=== PATIENT | male | born 1950 | race Caucasian/White ===

== ENCOUNTER 2016-10-28 00:05 | Emergency (ER) | payer MEDICARE ==
[2016-10-28] MEDS ORDERED: ALBUTEROL SULFATE 0.083% NEB 2.5 MG/3 ML AMPUL NEB ONE ×6 (00:09→10:30)
[2016-10-28] MEDS ORDERED: IPRATROPIUM/ALBUTEROL 0.5-2.5 MG/3 ML AMPUL NEB ONE ×3 (00:09→10:30)
[2016-10-28] MEDS ORDERED: MAGNESIUM SULFATE/D5W 1 GM/100 ML RTUPB IV ONE ×2 (00:10)
[2016-10-28] MEDS ORDERED: MAGNESIUM SULFATE/D5W 2 GM/200 ML RTUPB IV ONE (00:10)
--- NOTE | 2016-10-28 00:13 | ER Document Report ---
ED Respiratory Problem - General Stated Complaint: RESPIRATORY DISTRESS Time seen by provider: 00:11 Mode of Arrival: Medic Information source: Patient, Emergency Med Personnel TRAVEL OUTSIDE OF THE [place] IN LAST 30 DAYS: No - HPI Patient complains to provider of: COPD, Cough, Short of breath Onset: This morning Duration: Worse/persistent Quality of pain: No pain Context: Hx COPD, Smoker Short of Breath: Severe Chest pain/discomfort: Tightness Cough: Nonproductive Associated symptoms: Cough, Difficulty breathing, Short of breath Similar symptoms previously: Yes Recently seen / treated by doctor: Yes Notes: Patient is a 66-year-old male with a history of COPD who presents to the emergency room via EMS and severe respiratory distress, on C Pap on arrival, patient recently quit smoking approximately one week ago, was recently treated for upper respiratory infection by his primary care provider with antibiotics, has several previous hospitalizations for COPD and difficulty breathing patient denies any chest pain, no fever - Related Data Allergies/Adverse Reactions: No Known Allergies Allergy (Verified 07/28/15 18:34) Past Medical History - General Information source: Patient - Social History Smoking Status: Former Smoker Family History: Reviewed & Not Pertinent, DM - Past Medical History Cardiac Medical History: Reports: Hx Hypertension Denies: Hx Coronary Artery Disease, Hx Heart Attack Pulmonary Medical History: Reports: Hx COPD Denies: Hx Asthma, Hx Bronchitis, Hx Pneumonia, Hx Tuberculosis Neurological Medical History: Denies: Hx Cerebrovascular Accident - hx 6 months ago left side weakness lasted about 10 min, Hx Seizures Musculoskeltal Medical History: Reports Hx Arthritis Psychiatric Medical History: Denies: Hx Depression - Immunizations Immunizations up to date: Yes Hx Diphtheria, Pertussis, Tetanus Vaccination: Yes Review of Systems - Review of Systems Constitutional: No symptoms reported EENT: No symptoms reported Cardiovascular: No symptoms reported Respiratory: See HPI Gastrointestinal: No symptoms reported Genitourinary: No symptoms reported Male Genitourinary: No symptoms reported Musculoskeletal: No symptoms reported Skin: No symptoms reported Hematologic/Lymphatic: No symptoms reported Neurological/Psychological: No symptoms reported -: Yes All other systems reviewed and negative Physical Exam - Vital signs Vitals: Pulse Ox 99 10/28/16 00:08 Interpretation: Tachypneic - General General appearance: Alert In distress: Severe - HEENT Head: Normocephalic, Atraumatic Eyes: Normal Pupils: PERRL - Respiratory Respiratory status: Respiratory distress, Labored, Tachypnea Chest status: Nontender Breath sounds: Decreased air movement, Nonproductive cough, Wheezing Chest palpation: Normal - Cardiovascular Rhythm: Regular, Tachycardia Heart sounds: Normal auscultation Murmur: No - Abdominal Inspection: Normal Distension: No distension Bowel sounds: Normal Tenderness: Nontender Organomegaly: No organomegaly - Back Back: Normal, Nontender - Extremities General upper extremity: Normal inspection, Nontender, Normal color, Normal ROM , Normal temperature General lower extremity: Normal inspection, Nontender, Normal color, Normal ROM , Normal temperature, Normal weight bearing. No: Robert's sign - Neurological Neuro grossly intact: Yes Cognition: Normal Orientation: AAOx4 Pat Coma Scale Eye Opening: Spontaneous Pat Coma Scale Verbal: Oriented [place] Coma Scale Motor: Obeys Commands Pat Coma Scale Total: 15 Speech: Normal Motor strength normal: LUE, RUE, LLE, RLE Sensory: Normal - Psychological Associated symptoms: Normal affect, Normal mood - Skin Skin Temperature: Warm Skin Moisture: Dry Skin Color: Normal Course - Re-evaluation Re-evalutation: 10/28/16 01:32 Patient was discussed with [facility] cardiac connections of [facility], and accepted to cardiac service of Dr. Massimo Ware, patient is currently first on the waiting list for a bed 10/28/16 02:20 Patient discussed with [facility] transfer Center, will call back with hospitalist on line 10/28/16 02:42 Patient was discussed with hospitalist at [facility], Dr. Wills who graciously accepts patient for transfer, requested callback if patient becomes unstable, develops worsening chest pain or has a repeat troponin that trends up 10/28/16 04:36 Patient's repeat troponin 1.37, he is resting comfortably, has no complaints at the present time, denies having any chest pain, patient is awaiting transfer to either [facility] or [facility] once a bed becomes available, he is otherwise stable for transport patient has been discussed with Dr Ybarra, ER physician, who will continue to monitor patient until transportation arrangements are made - Vital Signs Vital signs: Temp Pulse Resp BP Pulse Ox 98.7 F 16 125/89 H 99 10/28/16 00:14 10/28/16 04:01 10/28/16 04:01 10/28/16 04:01 - Laboratory Result Diagrams: 10/28/16 00:20 10/28/16 00:20 Laboratory results interpreted by me: 10/28/16 10/28/16 00:20 00:20 WBC 11.0 H RDW 14.4 H Eosinophils % 7.1 H Absolute Eosinophils 0.8 H Creatinine 1.31 H Est GFR (Non-Af Amer) 55 L Creatine Kinase 226 H - Diagnostic Test Radiology reviewed: Image reviewed, Reports reviewed - EKG Interpretation by Me EKG shows normal: Sinus rhythm Rate: Normal [place]/QRS: LAHB/LAFB Critical Care Note - Critical Care Note Total time excluding time spent on procedures (mins): 60 Comments: Patient arrived in severe respiratory distress requiring immediate BiPAP placement, laboratory findings are consistent with NSTEMI, requiring transfer to tertiary care center, multiple re-evaluations, consultation with tertiary care center, as well as discussions with patient and family Discharge - Discharge Clinical Impression: Elevated troponin, NSTEMI (non-ST elevated myocardial infarction) Condition: Fair Referrals: LARY LOOMIS MD [Primary Care Provider] - Follow up as needed
[2016-10-28 00:32] LABS: VENOUS BLOOD HCO3 25.5 mmol/L (20-32); VENOUS BLOOD PH 7.33 (7.30-7.42)
[2016-10-28 00:34] LABS: ABSOLUTE EOSINOPHILS # (AUTO) 0.8 10^3/uL (0.0-0.6); ABSOLUTE LYMPHOCYTES (AUTO) 3.2 10^3/uL (0.5-4.7); ABSOLUTE MONOCYTES (AUTO) 0.7 10^3/uL (0.1-1.4); ABSOLUTE NEUT (AUTO) 6.3 10^3/uL (1.7-8.2); BASOPHILS % (AUTO) 0.4 % (0-2); EOSINOPHILS % (AUTO) 7.1 % (0-6); HEMATOCRIT 40.7 % (37.9-51.0); HEMOGLOBIN 13.9 g/dL (13.5-17.0); LYMPHOCYTES % (AUTO) 28.7 % (13-45); MEAN CORPUSCULAR HEMOGLOBIN 29.8 pg (27.0-33.4); MEAN CORPUSCULAR HGB CONC 34.1 g/dL (32.0-36.0); MEAN CORPUSCULAR VOLUME 87 fl (80-97); MONOCYTES % (AUTO) 6.5 % (3-13); RED BLOOD COUNT 4.67 10^6/uL (4.35-5.55); RED CELL DISTRIBUTION WIDTH 14.4 % (11.5-14.0); SEGMENTED NEUTROPHILS % (AUTO) 57.3 % (42-78)
[2016-10-28 00:49] LABS: ALANINE AMINOTRANSFERASE 34 U/L (21-72); ALBUMIN 4.2 g/dL (3.5-5.0); ALKALINE PHOSPHATASE 94 U/L (38-126); ANION GAP 15 (5-19); ASPARTATE AMINO TRANSFERASE 51 U/L (17-59); BILIRUBIN,DIRECT 0.2 mg/dL (0.0-0.4); BILIRUBIN,TOTAL 0.5 mg/dL (0.2-1.3); BLOOD UREA NITROGEN 20 mg/dL (7-20); CALCIUM 9.2 mg/dL (8.4-10.2); CARBON DIOXIDE 26 mmol/L (22-30); CHLORIDE 104 mmol/L (98-107); CREATINE KINASE 226 U/L (55-170); CREATININE RESULT 1.31 mg/dL (0.52-1.25); GLUCOSE 105 mg/dL (75-110); POTASSIUM 4.3 mmol/L (3.6-5.0); SODIUM 144.9 mmol/L (137-145); TOTAL PROTEIN 7.1 g/dL (6.3-8.2)
[2016-10-28 01:00] LABS: CREATINE KINASE MB 3.84 ng/mL (<4.55)
[2016-10-28 01:03] LABS: TROPONIN I 0.288 ng/mL
[2016-10-28] MEDS ORDERED: ASPIRIN 81 MG TABLET, CHEWABLE PO ONE (01:30)
[2016-10-28] MEDS ORDERED: MORPHINE SULFATE 10 MG/ML INJ IV ONE (02:14)
[2016-10-28] MEDS ORDERED: ENOXAPARIN SODIUM INJ 60 MG/0.6 ML DISP.SYRIN SUBCUT ONE (04:41)
--- NOTE | 2016-10-28 07:24 | EKG REPORT ---
SEVERITY:- ABNORMAL ECG - SINUS RHYTHM CONSIDER ANTEROSEPTAL INFARCT : Confirmed by: Kevin Sams MD 28-Oct-2016 07:23:47
--- NOTE | 2016-10-28 07:25 | EKG REPORT ---
SEVERITY:- ABNORMAL ECG - SINUS TACHYCARDIA RIGHT ATRIAL ABNORMALITY LEFT ANTERIOR FASCICULAR BLOCK : Confirmed by: Kevin Sams MD 28-Oct-2016 07:24:46
--- NOTE | 2016-10-28 07:25 | EKG REPORT ---
SEVERITY:- ABNORMAL ECG - SINUS RHYTHM LEFT ANTERIOR FASCICULAR BLOCK CONSIDER ANTEROSEPTAL INFARCT NONSPECIFIC T ABNORMALITIES, LATERAL LEADS BORDERLINE PROLONGED QT INTERVAL : Confirmed by: Kevin Sams MD 28-Oct-2016 07:24:11
[2016-10-28 09:47] LABS: APPEARANCE,URINE CLEAR; BILIRUBIN,URINE NEGATIVE (NEGATIVE); GLUCOSE, URINE NEGATIVE (NEGATIVE); KETONES,URINE TRACE mg/dL (NEGATIVE); LEUKOCYTE ESTERASE,URINE NEGATIVE (NEGATIVE); NITRITE,URINE NEGATIVE (NEGATIVE); PROTEIN,URINE NEGATIVE (NEGATIVE); URINE SPECIFIC GRAVITY 1.013; UROBILINOGEN,URINE NEGATIVE mg/dL (<2.0)
[2016-10-28] MEDS ORDERED: ALBUTEROL SULFATE 0.083% NEB 2.5 MG/3 ML AMPUL NEB SCH ×2 (10:00→16:00)
[2016-10-28] MEDS ORDERED: IPRATROPIUM/ALBUTEROL 0.5-2.5 MG/3 ML AMPUL NEB SCH ×2 (10:00→20:00)
[2016-10-28 13:47] VITALS: BP 138/77
--- NOTE | 2016-10-28 13:57 | ER Document Report ---
Doctor's Note Notes: 10/28/16 13:56 Patient is time to be stable for transport. Last troponin has trended downward. Patient has continued to be on BiPAP.
== END 2016-10-28 14:02 | disposition short-term general hospital (02) ==
LOC: ER 00:05
DX: I21.4 Non-ST elevation (NSTEMI) myocardial infarction (principal); R74.8 Abnormal levels of other serum enzymes; I10 Essential (primary) hypertension; J44.9 Chronic obstructive pulmonary disease, unspecified; I69.954 Hemiplegia and hemiparesis following unspecified cerebrovascular disease affecting left non-dominant side; Z87.891 Personal history of nicotine dependence
CPT/HCPCS: 93005; 94640 ×2; 99291; 96372; 96375; 96365; 36415; 87040; 82553; 82550; 85025; 80053; 81001; 84484; 82803; 83880; 71010; 93010; 94660; A9270 ×3; J2270; J3475; J1650; J7620

== ENCOUNTER → 2017-08-26 | Outpatient (CLI) | payer MEDICARE, MEDICAID ==
--- NOTE | 2017-08-26 15:14 | RADIOLOGY REPORT (SQ) ---
EXAM DESCRIPTION: CHEST PA/LATERAL COMPLETED DATE/TIME: 08/26/2017 2:47 pm REASON FOR STUDY: COUGH R05 COUGH COMPARISON: 10/28/2016 NUMBER OF VIEWS: Two view. TECHNIQUE: Frontal and lateral radiographic views of the chest acquired. LIMITATIONS: None. FINDINGS: LUNGS AND PLEURA: No opacities, masses or pneumothorax. No pleural effusion. Attenuated bl ood vessels and flattened anton-diaphragms. MEDIASTINUM AND HILAR STRUCTURES: No masses. No contour abnormalities. HEART AND VASCULAR STRUCTURES: Heart normal in size and contour. No evidence for failure. BONES: No acute findings. HARDWARE: None in the chest. OTHER: No other significant finding. IMPRESSION: COPD. NO ACUTE RADIOGRAPHIC FINDING IN THE CHEST. TECHNICAL DOCUMENTATION: JOB ID: [id number] [employer]- All Rights Reserved
[2017-08-26 15:32] LABS: ABSOLUTE LYMPHOCYTES (AUTO) 1.9 10^3/uL (0.5-4.7); ABSOLUTE MONOCYTES (AUTO) 0.6 10^3/uL (0.1-1.4); ABSOLUTE NEUT (AUTO) 4.1 10^3/uL (1.7-8.2); BASOPHILS % (AUTO) 0.3 % (0-2); EOSINOPHILS % (AUTO) 0.2 % (0-6); HEMATOCRIT 43.4 % (37.9-51.0); LYMPHOCYTES % (AUTO) 28.9 % (13-45); MEAN CORPUSCULAR HEMOGLOBIN 29.7 pg (27.0-33.4); MEAN CORPUSCULAR HGB CONC 34.7 g/dL (32.0-36.0); MEAN CORPUSCULAR VOLUME 86 fl (80-97); MONOCYTES % (AUTO) 8.8 % (3-13); PLATELET COUNT 139 10^3/uL (150-450); RED BLOOD COUNT 5.07 10^6/uL (4.35-5.55); RED CELL DISTRIBUTION WIDTH 14.3 % (11.5-14.0); SEGMENTED NEUTROPHILS % (AUTO) 61.8 % (42-78); TOTAL CELLS COUNTED % (AUTO) 100 %; WHITE BLOOD COUNT 6.7 10^3/uL (4.0-10.5)
[2017-08-26 15:46] LABS: A TYPE INFLUENZA AG NEGATIVE (NEGATIVE); B INFLUENZA AG NEGATIVE (NEGATIVE)
== END ==
LOC: OD 14:26
PROVIDERS: ATTEND Internal Medicine Pulmonary Disease
DX: J44.9 Chronic obstructive pulmonary disease, unspecified (principal); R05 Cough
CPT/HCPCS: 36415; 71046; 85025; 87070; 87077; 87186; 87205; 87804

== ENCOUNTER 2017-08-28 01:36 | Inpatient (IN) | payer MEDICARE, MEDICAID ==
[2017-08-28] MEDS ORDERED: ALBUTEROL SULFATE 0.083% NEB 2.5 MG/3 ML AMPUL NEB ONE ×2 (01:44→02:56)
[2017-08-28] MEDS ORDERED: METHYLPREDNISOLONE INJ 125 MG/2 ML SDV IV ONE (01:44)
[2017-08-28 01:53] LABS: ABSOLUTE MONOCYTES (AUTO) 0.7 10^3/uL (0.1-1.4); ABSOLUTE NEUT (AUTO) 8.1 10^3/uL (1.7-8.2); HEMATOCRIT 42.4 % (37.9-51.0); HEMOGLOBIN 14.8 g/dL (13.5-17.0); LYMPHOCYTES % (AUTO) 18.8 % (13-45); MEAN CORPUSCULAR HEMOGLOBIN 29.7 pg (27.0-33.4); MEAN CORPUSCULAR HGB CONC 34.8 g/dL (32.0-36.0); MEAN CORPUSCULAR VOLUME 85 fl (80-97); MONOCYTES % (AUTO) 6.2 % (3-13); PLATELET COUNT 124 10^3/uL (150-450); RED BLOOD COUNT 4.97 10^6/uL (4.35-5.55); RED CELL DISTRIBUTION WIDTH 14.3 % (11.5-14.0); TOTAL CELLS COUNTED % (AUTO) 100 %; WHITE BLOOD COUNT 10.8 10^3/uL (4.0-10.5)
[2017-08-28] MEDS: MAGNESIUM SULFATE/D5W 1 GM/100 ML RTUPB IV SCH ×2 (01:56→02:23)
--- NOTE | 2017-08-28 02:02 | ER Document Report ---
ED General - General Chief Complaint: Shortness Of Breath Stated Complaint: SHORTNESS OF BREATH,CHEST PAIN Time Seen by Provider: 08/28/17 01:44 Notes: Patient is a 67-year-old male with a history previous smoking. He quit smoking 2 months ago. His psychology fellow is Dr. Cordova. He was seen 2 days ago. He was seen 2 days ago by his psychology fellow. He was prescribed inhalers as well as prednisone. He says he did not inhalers at an did not start the prednisone makes her to take it with food and he has not felt like eating. He has been coughing now for almost a week. That is been having wheezing. Today he started having worsening difficulty breathing and then started to cough up some blood-tinged sputum. No history of cancer. He says that he is felt as if he has had fevers all day every day for the last 5 days but has not checked his temp at home. No other complaints at this time. Patient says only medications he routinely takes are Percocet and Valium. Percocet is for his chronic back pain. Valium is to help him sleep at night. TRAVEL OUTSIDE OF THE [place] IN LAST 30 DAYS: No - Related Data Allergies/Adverse Reactions: No Known Allergies Allergy (Verified 07/28/15 18:34) Past Medical History - Social History Smoking Status: Former Smoker Frequency of alcohol use: None Drug Abuse: None Family History: Reviewed & Not Pertinent, DM - Past Medical History Cardiac Medical History: Reports: Hx Hypertension Denies: Hx Coronary Artery Disease, Hx Heart Attack Pulmonary Medical History: Reports: Hx COPD Denies: Hx Asthma, Hx Bronchitis, Hx Pneumonia, Hx Tuberculosis Neurological Medical History: Denies: Hx Cerebrovascular Accident - hx 6 months ago left side weakness lasted about 10 min, Hx Seizures Musculoskeltal Medical History: Reports Hx Arthritis Psychiatric Medical History: Denies: Hx Depression - Immunizations Immunizations up to date: Yes Hx Diphtheria, Pertussis, Tetanus Vaccination: Yes Review of Systems - Review of Systems Notes: My Normal Review Basic REVIEW OF SYSTEMS: CONSTITUTIONAL : Chills and body aches. EENT: Denies eye, ear, throat, or mouth pain or symptoms. Denies nasal or sinus congestion. CARDIOVASCULAR: Denies chest pain. RESPIRATORY: Coughing and difficulty breathing. GASTROINTESTINAL: Denies abdominal pain. Denies nausea, vomiting, or diarrhea. Denies constipation. Last BM: MUSCULOSKELETAL: Chronic back pain. SKIN: Denies rash or skin lesions. HEMATOLOGIC : Denies easy bruising or bleeding. NEUROLOGICAL: Denies altered mental status or loss of consciousness. Denies headache. Denies weakness or paralysis or loss of use of either side. Denies problems with gait or speech. Denies sensory or motor loss. ALL OTHER SYSTEMS REVIEWED AND NEGATIVE. Physical Exam - Vital signs Vitals: Pulse Ox 77 L 08/28/17 01:39 - Notes Notes: General Appearance: Well nourished, alert, cooperative, moderate acute distress , no obvious discomfort. Patient has tachypnea with accessory muscle use. Vitals: reviewed, See vital signs table. Head: no swelling or tenderness to the head Eyes: PERRL, EOMI, Conjuctiva clear Mouth: No decreasd moisture Throat: No tonsillar inflammation, No airway obstruction, No lymphadenopathy Neck: Supple, no neck tendernes No thyromegaly Lungs: Diffuse wheezing with fair air movement. Heart: Normal rate, Regular rythm, No murmur, no rub Abdomen: Normal BS, soft, No rigidity, No abdominal tenderness, No guarding, no rebound, no abdominal masses, no organomegaly Extremities: strength 5/5 in all extremities, good pulses in all extremities, no swelling or tenderness in the extremities, no edema. Skin: warm, dry, appropriate color, no rash Neuro: speech clear, oriented x 3, normal affect, responds appropriately to questions. Course - Re-evaluation Re-evalutation: 08/28/17 02:55 On repeat examination patient still has tachypnea and accessory muscle use. He still has some tightness throughout lung beatty. His O2 saturations 94% on 2 L. He does use BiPAP in the past and done well with that. I will place BiPAP on him to see if this helps with his work of breathing. 08/28/17 04:44 Since starting the BiPAP patient looks and feels much improved. His increased work of breathing is improved. His tachypnea is improved. He still has some scattered wheezes but he has much better movement than he did earlier. He is no longer coughing up blood-tinged sputum. Chest x-ray does not have any findings that would cause concern for TB on my review the chest x-ray. I do not see evidence of pneumonia but I will still nonetheless place him on Levaquin. I spokespoke with Dr. Wilhelm, patient's primary care physician, who agrees to admit the patient for observation. Dictation of this chart was performed using voice recognition software; therefore, there may be some unintended grammatical errors. - Vital Signs Vital signs: Temp Pulse Resp BP Pulse Ox 99.8 F 27 H 117/72 98 08/28/17 03:23 08/28/17 04:20 08/28/17 04:01 08/28/17 04:20 - Laboratory Result Diagrams: 08/28/17 01:15 08/28/17 01:15 Laboratory results interpreted by me: 08/28/17 08/28/17 08/28/17 01:15 01:15 02:17 WBC 10.8 H RDW 14.3 H Plt Count 124 L VBG pH 7.48 H VBG pCO2 28.3 L Sodium 134.7 L Glucose 118 H Albumin 3.4 L - EKG Interpretation by Me Additional EKG results interpreted by me: 08/28/17 02:01 EKG is reviewed and interpreted by me. EKG shows sinus tachycardia with a rate of [address] segment elevation or depression. No ischemic T-wave inversions. VT interval, QRS duration, QTc intervals are within normal range. Old EKG for comparison is from October 28, 2016. Discharge - Discharge Clinical Impression: Bronchitis, Hemoptysis Condition: Stable Disposition: ADMITTED OBSERVATION Admitting Provider: Melonie Unit Admitted: IMCU Referrals: LOCALMD,NO [Primary Care Provider] - Follow up as needed
[2017-08-28 02:05] LABS: ALANINE AMINOTRANSFERASE 24 U/L (21-72); ALBUMIN 3.4 g/dL (3.5-5.0); ALKALINE PHOSPHATASE 70 U/L (38-126); ANION GAP 10 (5-19); ASPARTATE AMINO TRANSFERASE 31 U/L (17-59); BILIRUBIN,DIRECT 0.4 mg/dL (0.0-0.4); BILIRUBIN,TOTAL 0.4 mg/dL (0.2-1.3); BLOOD UREA NITROGEN 16 mg/dL (7-20); CALCIUM 8.4 mg/dL (8.4-10.2); CARBON DIOXIDE 22 mmol/L (22-30); CHLORIDE 103 mmol/L (98-107); GLUCOSE 118 mg/dL (75-110); SODIUM 134.7 mmol/L (137-145); TOTAL PROTEIN 6.3 g/dL (6.3-8.2)
[2017-08-28 02:31] LABS: VENOUS BLOOD BASE EXCESS -1.5 mmol/L; VENOUS BLOOD HCO3 20.5 mmol/L (20-32); VENOUS BLOOD PCO2 28.3 mmHg (35-63); VENOUS BLOOD PH 7.48 (7.30-7.42)
[2017-08-28] MEDS ORDERED: LEVOFLOXACIN 750 MG/D5W RTU 750 MG/150 ML RTUPB IV ONE ×2 (04:25→07:00)
--- NOTE | 2017-08-28 04:35 | RADIOLOGY REPORT (SQ) ---
EXAM DESCRIPTION: CHEST SINGLE VIEW CLINICAL HISTORY: cough COMPARISON: 08/26/2017 FINDINGS: Single frontal view of the chest. Atherosclerotic calcification of the thoracic aorta. Heart is not enlarged. No consolidation, pneumothorax, or pleural effusion. No displaced rib fractures identified. Upper abdominal soft tissues are unremarkable. IMPRESSION: 1. No acute pulmonary process identified.
[2017-08-28] MEDS ORDERED: IPRATROPIUM/ALBUTEROL 0.5-2.5 MG/3 ML AMPUL NEB PRN (06:21)
[2017-08-28 08:20] LABS: INTERNATIONAL RATION (INR) 0.96; PROTHROMBIN TIME 13.5 SEC (11.4-15.4)
[2017-08-28 08:21] LABS: PARTIAL THROMBOPLASTIN TIME 32.2 SEC (23.5-35.8)
[2017-08-28 08:32] LABS: LIPASE 303.3 U/L (23-300); MAGNESIUM 2.5 mg/dL (1.6-2.3); PHOSPHORUS 3.7 mg/dL (2.5-4.5)
[2017-08-28 08:45] LABS: CREATINE KINASE MB 0.66 ng/mL (<4.55)
[2017-08-28 08:49] LABS: FREE T4 (FREE THYROXINE) 1.14 ng/dL (0.78-2.19); TROPONIN I < 0.012 ng/mL
[2017-08-28 09:03] LABS: THYROID STIMULATING HORMONE 1.1 uIU/mL (0.47-4.68)
[2017-08-28 09:23] LABS: ARTERIAL BLOOD BASE EXCESS -1.5 mmol/L; ARTERIAL BLOOD H2CO3 0.85 mmol/L (1.05-1.35); ARTERIAL BLOOD HCO3 20.6 mmol/L (20-26); ARTERIAL BLOOD O2 SATURATION 99.2 % (94-98); ARTERIAL BLOOD PCO2 28.1 mmHg (35-45); ARTERIAL BLOOD PH 7.48 (7.35-7.45); ARTERIAL BLOOD PO2 157.6 mmHg (80-100); ARTERIAL BLOOD TOTAL CO2 21.5 mmol/L (23-27)
[2017-08-28 09:24] LABS: ARTERIAL BLOOD FIO2 40%
--- NOTE | 2017-08-28 10:19 | EKG REPORT ---
SEVERITY:- OTHERWISE NORMAL ECG - SINUS TACHYCARDIA : Confirmed by: Laura Chandler 28-Aug-2017 10:18:23
[2017-08-28] MEDS ORDERED: ENOXAPARIN SODIUM INJ 40 MG/0.4 ML DISP.SYRIN SUBCUT ONE (11:00)
[2017-08-28] MEDS ORDERED: (PENDING PHARMACY ID) (Oxycodone Hcl/Acetaminophen [Percocet 10-325 Mg Tablet] 1 TAB) PO PRN (12:47)
[2017-08-28] MEDS: IPRATROPIUM/ALBUTEROL 0.5-2.5 MG/3 ML AMPUL NEB SCH ×2 (15:38→19:56)
[2017-08-28] MEDS: OXYCODONE HCL IR 5 MG TABLET PO PRN (15:38)
[2017-08-28 15:59] LABS: CREATINE KINASE MB 1.04 ng/mL (<4.55)
[2017-08-28 16:03] LABS: TROPONIN I < 0.012 ng/mL
[2017-08-28 20:13] LABS: CREATINE KINASE MB 1.42 ng/mL (<4.55)
[2017-08-28 20:19] LABS: TROPONIN I < 0.012 ng/mL
--- NOTE | 2017-08-28 20:37 | PDOC H&P ---
History of Present Illness Admission Date/PCP: 08/28/17 04:49 NO LOCALMD History of Present Illness: HUSSEIN LEON is a 67 year old male, he has history of COPD, he stopped smoking 2 months ago, he came to the emergency room for evaluation of shortness of breath, he saw the wave solder offbearer about 2 days ago in the office was prescribed prednisone pack and antibiotic he was wheezing severely, coughing up blood- tinged sputum go to emergency room chest x-ray did not show any acute infiltrate to suggest pneumonia Past Medical History Cardiac Medical History: Reports: Hypertension Pulmonary Medical History: Reports: Chronic Obstructive Pulmonary Disease (COPD) Social History Smoking Status: Former Smoker Frequency of Alcohol Use: None Hx Recreational Drug Use: No Drugs: Marijuana Hx Prescription Drug Abuse: No Family History Family History: Reviewed & Not Pertinent, DM Parental Family History Reviewed: Yes Children Family History Reviewed: Yes Sibling(s) Family History Reviewed.: Yes Medication/Allergy Home Medications: Diazepam [Valium 5 mg Tablet] 5 mg PO QHS 08/28/17 Gabapentin Enacarbil [Horizant] 600 mg PO QHS 08/28/17 Ipratropium/Albuterol Sulfate [Duoneb 3 ml Ampul] 3 ml NEB RTQID 08/28/17 Oxycodone HCl/Acetaminophen [Percocet 10-325 mg Tablet] 1 tab PO Q6HP PRN Prednisone [Deltasone 5 mg Tablet] 20 mg PO ASDIR 08/28/17 Allergies/Adverse Reactions: No Known Allergies Allergy (Verified 07/28/15 18:34) Review of Systems Constitutional: ABSENT: chills, fever(s), headache(s), weight gain, weight loss Eyes: ABSENT: visual disturbances Ears: ABSENT: hearing changes Cardiovascular: ABSENT: chest pain, dyspnea on exertion, edema, orthropnea, palpitations Respiratory: PRESENT: cough, dyspnea, sputum Gastrointestinal: ABSENT: abdominal pain, constipation, diarrhea, hematemesis, hematochezia, nausea, vomiting Genitourinary: ABSENT: dysuria, hematuria Musculoskeletal: ABSENT: joint swelling Integumentary: ABSENT: rash, wounds Neurological: ABSENT: abnormal gait, abnormal speech, confusion, dizziness, focal weakness, syncope Psychiatric: ABSENT: anxiety, depression, homidical ideation, suicidal ideation Endocrine: ABSENT: cold intolerance, heat intolerance, menstrual abnormalities, polydipsia, polyuria Hematologic/Lymphatic: ABSENT: easy bleeding, easy bruising, lymphadenopathy Physical Exam Vital Signs: Temp Pulse Resp BP Pulse Ox 97.4 F 91 18 117/75 96 08/28/17 20:29 08/28/17 08:52 08/28/17 19:00 08/28/17 19:00 08/28/17 19:00 Intake & Output 08/27/17 08/28/17 08/29/17 06:59 06:59 06:59 Weight 58.4 kg General appearance: PRESENT: mild distress Head exam: PRESENT: atraumatic, normocephalic Eye exam: PRESENT: conjunctiva pink, EOMI, PERRLA Ear exam: PRESENT: normal external ear exam Mouth exam: PRESENT: moist, tongue midline Neck exam: PRESENT: full ROM. ABSENT: carotid bruit, JVD, lymphadenopathy, thyromegaly Cardiovascular exam: PRESENT: RRR, +S1, +S2 Rectal exam: PRESENT: deferred Neurological exam: PRESENT: alert, CN II-XII grossly intact Skin exam: PRESENT: dry, intact, warm Results Laboratory Results: 08/28/17 08/28/17 08/28/17 07:57 07:57 09:02 Carbonic Acid 0.85 L HCO3/H2CO3 Ratio 24:1 ABG pH 7.48 H ABG pCO2 28.1 L ABG pO2 157.6 H ABG HCO3 20.6 ABG O2 Saturation 99.2 H ABG Base Excess -1.5 FiO2 40% Phosphorus 3.7 Magnesium 2.5 H Amylase 120 H Lipase 303.3 H TSH 1.10 Free T4 1.14 08/28/17 08/28/17 08/28/17 07:57 07:57 15:09 Creatine Kinase 122 100 CK-MB (CK-2) 0.66 Troponin I < 0.012 08/28/17 08/28/17 08/28/17 15:09 19:20 19:20 Creatine Kinase 108 CK-MB (CK-2) 1.04 1.42 Troponin I < 0.012 < 0.012 Impressions: Chest X-Ray 08/28/17 01:45 IMPRESSION: 1. No acute pulmonary process identified. Assessment & Plan - Diagnosis (1) Acute exacerbation of chronic obstructive pulmonary disease (COPD) Is this a current diagnosis for this admission?: Yes Plan: Patient is admitted for management
[2017-08-28] MEDS ORDERED: (PENDING PHARMACY ID) (Gabapentin Enacarbil [Horizant] 600 MG) PO SCH (22:00)
[2017-08-28] MEDS: METHYLPREDNISOLONE INJ 125 MG/2 ML SDV IV SCH (22:29)
[2017-08-28] MEDS: DIAZEPAM 5 MG TABLET PO SCH (22:32)
[2017-08-28] MEDS: OXYCODONE-ACETAMINOPHEN 5-325 MG TABLET PO PRN (22:32)
[2017-08-29] MEDS: METHYLPREDNISOLONE INJ 125 MG/2 ML SDV IV SCH ×3 (05:50→21:24)
[2017-08-29 06:41] LABS: HEMATOCRIT 39.7 % (37.9-51.0); HEMOGLOBIN 13.7 g/dL (13.5-17.0); MEAN CORPUSCULAR HEMOGLOBIN 29.7 pg (27.0-33.4); MEAN CORPUSCULAR HGB CONC 34.6 g/dL (32.0-36.0); MEAN CORPUSCULAR VOLUME 86 fl (80-97); PLATELET COUNT 130 10^3/uL (150-450); RED BLOOD COUNT 4.63 10^6/uL (4.35-5.55); RED CELL DISTRIBUTION WIDTH 14.8 % (11.5-14.0); WHITE BLOOD COUNT 21.4 10^3/uL (4.0-10.5)
[2017-08-29 06:45] LABS: ALANINE AMINOTRANSFERASE 17 U/L (21-72); ALBUMIN 3.6 g/dL (3.5-5.0); ALKALINE PHOSPHATASE 66 U/L (38-126); ANION GAP 17 (5-19); ASPARTATE AMINO TRANSFERASE 28 U/L (17-59); BILIRUBIN,DIRECT 0.4 mg/dL (0.0-0.4); BILIRUBIN,TOTAL 0.4 mg/dL (0.2-1.3); BLOOD UREA NITROGEN 26 mg/dL (7-20); CARBON DIOXIDE 20 mmol/L (22-30); CHLORIDE 101 mmol/L (98-107); GLUCOSE 180 mg/dL (75-110); POTASSIUM 3.4 mmol/L (3.6-5.0); SODIUM 137.5 mmol/L (137-145); TOTAL PROTEIN 6.5 g/dL (6.3-8.2)
[2017-08-29 07:19] LABS: ABSOLUTE LYMPHOCYTES# (MANUAL) 2.1 10^3/uL (0.5-4.7); ABSOLUTE MONOCYTES # (MANUAL) 0.6 10^3/uL (0.1-1.4); ABSOLUTE NEUTROPHILS# (MANUAL) 18.6 10^3/uL (1.7-8.2); BAND NEUTROPHILS % (MANUAL) 3 % (3-5); BASOPHILS % (MANUAL) 0 % (0-2); EOSINOPHILS % (MANUAL) 0 % (0-6); LYMPHOCYTES % (MANUAL) 10 % (13-45); MONOCYTES % (MANUAL) 3 % (3-13); SEGMENTED NEUTROPHILS % (MAN) 84 % (42-78); TOTAL CELLS COUNTED 100
[2017-08-29 07:21] LABS: ANISOCYTOSIS SLIGHT; BURR CELLS 1+; PLATELET COMMENT ADEQUATE; POIKILOCYTOSIS SLIGHT; SCHISTOCYTES 1+; TOXIC GRANULATION 1+
[2017-08-29] MEDS: IPRATROPIUM/ALBUTEROL 0.5-2.5 MG/3 ML AMPUL NEB SCH ×4 (07:34→19:52)
[2017-08-29] MEDS: OXYCODONE-ACETAMINOPHEN 5-325 MG TABLET PO PRN ×2 (08:37→21:24)
[2017-08-29] MEDS ORDERED: LEVOFLOXACIN 750 MG/D5W RTU 750 MG/150 ML RTUPB IV SCH (10:00)
[2017-08-29] MEDS: ENOXAPARIN SODIUM INJ 40 MG/0.4 ML DISP.SYRIN SUBCUT SCH (10:29)
[2017-08-29] MEDS: LEVOFLOXACIN 750 MG/D5W RTU 750 MG/150 ML RTUPB IV SCH (10:43)
--- NOTE | 2017-08-29 17:15 | PDOC PROGRESS REPORT ---
Subjective Progress Note for:: 08/29/17 Subjective:: He was admitted yesterday for acute COPD exacerbation, yesterday he had a lot of wheezing, he was started on IV Solu-Medrol, IV antibiotic, bronchodilators. He said he feels improved today Reason For Visit: COPD EXACERBATION Physical Exam Vital Signs: Temp Pulse Resp BP Pulse Ox 97.8 F 80 18 135/65 H 92 08/29/17 11:54 08/29/17 14:00 08/29/17 11:54 08/29/17 11:54 08/29/17 11:54 Intake & Output 08/28/17 08/29/17 08/30/17 06:59 06:59 06:59 Intake Total 793 Output Total 500 Balance 293 Weight 53.8 kg General appearance: PRESENT: mild distress Head exam: PRESENT: atraumatic, normocephalic Eye exam: PRESENT: PERRLA Neck exam: PRESENT: full ROM Respiratory exam: PRESENT: wheezes Cardiovascular exam: PRESENT: RRR, +S1, +S2 GI/Abdominal exam: PRESENT: normal bowel sounds, soft Rectal exam: PRESENT: deferred Neurological exam: PRESENT: alert Psychiatric exam: PRESENT: appropriate affect, normal mood Skin exam: PRESENT: dry, intact, warm Results Laboratory Results: 08/29/17 05:28 08/29/17 05:28 08/29/17 08/29/17 05:28 05:28 WBC 21.4 H RBC 4.63 Hgb 13.7 Hct 39.7 MCV 86 MCH 29.7 MCHC 34.6 RDW 14.8 H Plt Count 130 L Seg Neutrophils % Not Reportable Lymphocytes % Not Reportable Monocytes % Not Reportable Eosinophils % Not Reportable Basophils % Not Reportable Absolute Neutrophils Not Reportable Absolute Lymphocytes Not Reportable Absolute Monocytes Not Reportable Absolute Eosinophils Not Reportable Absolute Basophils Not Reportable Sodium 137.5 Potassium 3.4 L Chloride 101 Carbon Dioxide 20 L Anion Gap 17 BUN 26 H Creatinine 1.20 Est GFR ( Amer) > 60 Est GFR (Non-Af Amer) > 60 Glucose 180 H Calcium 9.0 Total Bilirubin 0.4 AST 28 ALT 17 L Alkaline Phosphatase 66 Total Protein 6.5 Albumin 3.6 08/28/17 08/28/17 08/28/17 07:57 07:57 15:09 Creatine Kinase 122 100 CK-MB (CK-2) 0.66 Troponin I < 0.012 08/28/17 08/28/17 08/28/17 15:09 19:20 19:20 Creatine Kinase 108 CK-MB (CK-2) 1.04 1.42 Troponin I < 0.012 < 0.012 Impressions: Chest X-Ray 08/28/17 01:45 IMPRESSION: 1. No acute pulmonary process identified. Assessment & Plan - Diagnosis (1) Acute exacerbation of chronic obstructive pulmonary disease (COPD) Is this a current diagnosis for this admission?: Yes Plan: Continue treatment
[2017-08-29] MEDS: OXYCODONE HCL IR 5 MG TABLET PO PRN (21:24)
[2017-08-29] MEDS: DIAZEPAM 5 MG TABLET PO SCH (21:24)
[2017-08-30] MEDS: METHYLPREDNISOLONE INJ 125 MG/2 ML SDV IV SCH ×2 (05:28→13:49)
[2017-08-30 06:39] LABS: ABSOLUTE BASOPHILS # (AUTO) 0.1 10^3/uL (0.0-0.2); ABSOLUTE LYMPHOCYTES (AUTO) 1.1 10^3/uL (0.5-4.7); ABSOLUTE MONOCYTES (AUTO) 0.5 10^3/uL (0.1-1.4); ABSOLUTE NEUT (AUTO) 17.1 10^3/uL (1.7-8.2); BASOPHILS % (AUTO) 0.3 % (0-2); HEMATOCRIT 34.8 % (37.9-51.0); LYMPHOCYTES % (AUTO) 6.1 % (13-45); MEAN CORPUSCULAR HEMOGLOBIN 29.5 pg (27.0-33.4); MEAN CORPUSCULAR HGB CONC 34.4 g/dL (32.0-36.0); MEAN CORPUSCULAR VOLUME 86 fl (80-97); MONOCYTES % (AUTO) 2.7 % (3-13); PLATELET COUNT 139 10^3/uL (150-450); RED BLOOD COUNT 4.05 10^6/uL (4.35-5.55); RED CELL DISTRIBUTION WIDTH 14.3 % (11.5-14.0); SEGMENTED NEUTROPHILS % (AUTO) 90.9 % (42-78); TOTAL CELLS COUNTED % (AUTO) 100 %; WHITE BLOOD COUNT 18.8 10^3/uL (4.0-10.5)
[2017-08-30 07:07] LABS: ALANINE AMINOTRANSFERASE 22 U/L (21-72); ALKALINE PHOSPHATASE 60 U/L (38-126); ANION GAP 12 (5-19); ASPARTATE AMINO TRANSFERASE 21 U/L (17-59); BILIRUBIN,DIRECT 0.1 mg/dL (0.0-0.4); BILIRUBIN,TOTAL 0.2 mg/dL (0.2-1.3); BLOOD UREA NITROGEN 33 mg/dL (7-20); CALCIUM 8.2 mg/dL (8.4-10.2); CARBON DIOXIDE 22 mmol/L (22-30); CHLORIDE 103 mmol/L (98-107); GLUCOSE 218 mg/dL (75-110); POTASSIUM 3.6 mmol/L (3.6-5.0); SODIUM 137.2 mmol/L (137-145); TOTAL PROTEIN 5.2 g/dL (6.3-8.2)
[2017-08-30] MEDS: IPRATROPIUM/ALBUTEROL 0.5-2.5 MG/3 ML AMPUL NEB SCH ×3 (08:52→16:00)
[2017-08-30] MEDS: ENOXAPARIN SODIUM INJ 40 MG/0.4 ML DISP.SYRIN SUBCUT SCH (10:03)
[2017-08-30] MEDS: LEVOFLOXACIN 750 MG/D5W RTU 750 MG/150 ML RTUPB IV SCH (10:09)
[2017-08-30] MEDS: OXYCODONE-ACETAMINOPHEN 5-325 MG TABLET PO PRN ×2 (10:13→18:21)
[2017-08-30 15:58] VITALS: BP 126/64
--- NOTE | 2017-08-30 18:21 | PDOC DISCHARGE SUMMARY ---
General - Admit/Disc Date/PCP Admission Date/Primary Care Provider: 08/28/17 04:49 NO LOCALMD Discharge Date: 08/30/17 - Discharge Diagnosis (1) Acute exacerbation of chronic obstructive pulmonary disease (COPD) Is this a current diagnosis for this admission?: Yes - Additional Information Resuscitation Status: Full Code Prescriptions: Levofloxacin [Levaquin 750 mg Tablet] 750 mg PO DAILY #10 tablet Home Medications: Gabapentin Enacarbil [Horizant] 600 mg PO QHS 08/28/17 Ipratropium/Albuterol Sulfate [Duoneb 3 ml Ampul] 3 ml NEB RTQID 08/28/17 Prednisone [Deltasone 5 mg Tablet] 20 mg PO ASDIR 08/28/17 Levofloxacin [Levaquin 750 mg Tablet] 750 mg PO DAILY #10 tablet 08/30/17 History of Present Illness History of Present Illness: HUSSEIN LEON is a 67 year old male, he has history of COPD, he stopped smoking 2 months ago, he came to the emergency room for evaluation of shortness of breath, he saw the medical secretary receptionist about 2 days ago in the office was prescribed prednisone pack and antibiotic he was wheezing severely, coughing up blood- tinged sputum go to emergency room chest x-ray did not show any acute infiltrate to suggest pneumonia Hospital Course Hospital Course: Patient was admitted for the management of acute COPD exacerbation, presently on IV Solu-Medrol, 120 mg IV every 8, antibiotic, bronchodilators. Patient insisted that he has to be discharged home today because he has emergency at home he has to address. He is not medically stable enough to be discharged home yet but he insisted on being discharged home. Physical Exam Vital Signs: Temp Pulse Resp BP Pulse Ox 98.3 F 77 16 126/64 H 95 08/30/17 18:02 08/30/17 18:02 08/30/17 18:02 08/30/17 15:27 08/30/17 18:02 Intake & Output 08/29/17 08/30/17 08/31/17 06:59 06:59 06:59 Intake Total 793 1336 236 Output Total 500 0 400 Balance 293 1336 -164 Weight 53.8 kg 53.5 kg General appearance: PRESENT: no acute distress Head exam: PRESENT: atraumatic, normocephalic Neck exam: PRESENT: full ROM Respiratory exam: PRESENT: wheezes Cardiovascular exam: PRESENT: RRR, +S1, +S2 Pulses: PRESENT: normal dorsalis pedis pul, +2 pedal pulses bilateral Vascular exam: PRESENT: normal capillary refill GI/Abdominal exam: PRESENT: normal bowel sounds, soft Rectal exam: PRESENT: deferred Neurological exam: PRESENT: alert Psychiatric exam: PRESENT: appropriate affect, normal mood Skin exam: PRESENT: dry, intact, warm Results Laboratory Results: 08/30/17 06:03 08/30/17 06:03 08/30/17 08/30/17 06:03 06:03 WBC 18.8 H RBC 4.05 L Hgb 12.0 L Hct 34.8 L MCV 86 MCH 29.5 MCHC 34.4 RDW 14.3 H Plt Count 139 L Seg Neutrophils % 90.9 H Lymphocytes % 6.1 L Monocytes % 2.7 L Eosinophils % 0.0 Basophils % 0.3 Absolute Neutrophils 17.1 H Absolute Lymphocytes 1.1 Absolute Monocytes 0.5 Absolute Eosinophils 0.0 Absolute Basophils 0.1 Sodium 137.2 Potassium 3.6 Chloride 103 Carbon Dioxide 22 Anion Gap 12 BUN 33 H Creatinine 1.13 Est GFR ( Amer) > 60 Est GFR (Non-Af Amer) > 60 Glucose 218 H Calcium 8.2 L Total Bilirubin 0.2 AST 21 ALT 22 Alkaline Phosphatase 60 Total Protein 5.2 L Albumin 3.0 L 08/28/17 08/28/17 08/28/17 07:57 07:57 15:09 Creatine Kinase 122 100 CK-MB (CK-2) 0.66 Troponin I < 0.012 08/28/17 08/28/17 08/28/17 15:09 19:20 19:20 Creatine Kinase 108 CK-MB (CK-2) 1.04 1.42 Troponin I < 0.012 < 0.012 Impressions: Chest X-Ray 08/28/17 01:45 IMPRESSION: 1. No acute pulmonary process identified.
== END 2017-08-30 18:24 | disposition home or self-care (01) | DRG 192 ==
LOC: ER 01:36 → OBSVTOIN 04:49 → UNDOADMOB 04:49 → EH 04:49 → INTOOBSV 04:49 → EH 23:26 → 3S 23:26
PROVIDERS: ADMIT Internal Medicine; ATTEND Internal Medicine
PROC: 3E0F73Z Introduction of Anti-inflammatory into Respiratory Tract, Via Natural or Artificial Opening (ICD-10-PCS; principal; 2017-08-28)
PROC: 5A09457 Assistance with Respiratory Ventilation, 24-96 Consecutive Hours, Continuous Positive Airway Pressure (ICD-10-PCS; 2017-08-28)
DX: J44.1 Chronic obstructive pulmonary disease with (acute) exacerbation (principal); I10 Essential (primary) hypertension; M19.90 Unspecified osteoarthritis, unspecified site; R00.0 Tachycardia, unspecified; Z87.891 Personal history of nicotine dependence; Z79.899 Other long term (current) drug therapy; Z83.3 Family history of diabetes mellitus
CPT/HCPCS: 36415; 71045; 80048; 80053; 80076; 82150; 82550; 82553; 82803; 83690; 83735; 84100; 84439; 84443; 84484; 85025; 85610; 85730; 87040; 93005; 93010; 94660; 99285; G0378; J1650; J1956; J2930; J3475; J7620

== ENCOUNTER → 2017-10-14 | Outpatient (CLI) | payer MEDICARE, MEDICAID ==
--- NOTE | 2017-10-14 11:20 | RADIOLOGY REPORT (SQ) ---
EXAM DESCRIPTION: UGI SERIES COMPLETED DATE/TIME: 10/14/2017 9:16 am REASON FOR STUDY: CHRONIC GERD (K21.9) K21.9 GASTRO-ESOPHAGEAL REFLUX DISEASE WITHOUT ESOPHAGITIS COMPARISON: CT chest 06/22/2016 CT abdomen pelvis 05/30/2016 TECHNIQUE: Under fluoroscopic guidance, patient ingested effervescent granules followed by thick and thin barium. Fluoroscopic spot images and routine radiographic images acquired and stored on PACS. 12 MM BARIUM TABLET GIVEN: Yes. No significant delay in passage. LIMITATIONS: None. FLUOROSCOPY TIME: FLUORO TIME: 1.5 minutes 11 digital images saved to PACS. FINDINGS: NEUROMUSCULAR COORDINATION OF SWALLOW: Normal. No aspiration. ESOPHAGEAL MOTILITY: Normal peristalsis. No esophageal spasm. ESOPHAGEAL MUCOSA: Normal mucosa without masses or ulceration. GASTRO-ESOPHAGEAL JUNCTION: There is a small sliding hiatal hernia. No gastroesophageal reflux occur red during the exam. No distal esophageal stricture. 12 mm barium tablet passed through the GE junc tion without difficulty STOMACH: Loss of gastric folds along the antrum worrisome for atrophic gastritis. No persistent ulce r crater is identified in the stomach. GASTRIC OUTLET: No delay in emptying. Normal pylorus. DUODENAL BULB: Normal distention. No spasm or ulceration. DUODENUM: Mucosa normal. No extrinsic masses or malrotation. PROXIMAL SMALL BOWEL: Mucosa normal. No extrinsic masses or malrotation. NON-GI TRACT STRUCTURES: No significant finding. OTHER: No other significant finding. IMPRESSION: Small sliding hiatal hernia without gastroesophageal reflux Diminished gastric folds throughout the gastric antrum with normal peristalsis. Findings are worriso me for atrophic gastritis COMMENT: Quality ID 145: Final reports for procedures using fluoroscopy that document radiation exp osure indices, or exposure time and number of fluorographic images (if radiation exposure indices are not available) TECHNICAL DOCUMENTATION: JOB ID: [id number] [employer]- All Rights Reserved Reading location - IP/workstation name: [email or web address]
== END ==
LOC: RAD 08:32
PROVIDERS: ATTEND Internal Medicine Pulmonary Disease
DX: K21.9 Gastro-esophageal reflux disease without esophagitis (principal); K44.9 Diaphragmatic hernia without obstruction or gangrene
CPT/HCPCS: 74247

== ENCOUNTER → 2017-12-09 | Outpatient (CLI) | payer MEDICARE, MEDICAID ==
--- NOTE | 2017-12-09 09:39 | RADIOLOGY REPORT (SQ) ---
EXAM DESCRIPTION: COOKIE SWALLOW COMPLETED DATE/TIME: 12/09/2017 9:22 am REASON FOR STUDY: GERD (K21.9) K21.9 GASTRO-ESOPHAGEAL REFLUX DISEASE WITHOUT ESOPHAGITIS COMPARISON: None. TECHNIQUE: Videofluoroscopic swallowing examination was performed in conjunction with speech patholo gy. Videofluoroscopic imaging was obtained and reviewed and these are the findings: RADIATION DOSE: 1 minutes 8 seconds of fluoroscopy was used. 1 images saved to PACS. LIMITATIONS: None FINDINGS: The patient was brought into the fluoro room and placed upright on a modified barium swall ow chair. The patient was then given multiple consistencies mixed with barium to swallow under live fluoroscopic video guidance. According to the Speech Pathologist there was no penetration or aspirat ion. Multiple level cervical osteophytes causing impression upon the proximal posterior esophagus. IMPRESSION: NO EVIDENCE OF PENETRATION OR ASPIRATION.PLEASE SEE SPEECH PATHOLOGIST REPORT FOR OTHER FINDINGS AND RECOMMENDATIONS. COMMENT: Quality ID 145: Final reports for procedures using fluoroscopy that document radiation exp osure indices, or exposure time and number of fluorographic images (if radiation exposure indices are not available) TECHNICAL DOCUMENTATION: JOB ID: [id number] [employer]- All Rights Reserved Reading location - IP/workstation name: [email or web address]
--- NOTE | 2017-12-09 11:07 | ST Modified Barium Swallow ---
Recommendation - Recommendations Recommendations: Continue regular diet with thin liquids Medical Diagnoses - Medical Diagnoses Medical Diagnosis Description & ICD-10 Code(s): Gastroesophageal Reflux Disease (K21.9), evaluated for dysphagia (R13.10) Other Medical Diagnoses/Co-Morbidities: Patient reports none ST Modified Barium Swallow - General Date: 12/09/17 Referring Physician: Tasha Risks/Precautions: None Date of Onset: 12/09/17 Reason for Referral: increased risk for dysphagia due to GERD - History History obtained from: Patient Medications: Patient unable to recall any of his medications Allergies: Patient reports no known allergies - Functional Status Prior Functional Status: INDEPENDENT: ADL, work duties, community mobility, communication, feeding - Subjective Patient/caregiver goal(s): r/o aspiration Speech Intelligibility: WNL Current Nutritional Means: PO Current PO diet: Regular - with thin liquids Current symptoms: other - GERD - Objective Assessment: Upright, Left Lateral - Food Trials Used Food trials used: Thin liquids, Pureed, Regular The patient: Was Able to Self Feed - Oral-Motor Skills Dentition: Full Laryngeal Function: clear voicing - Assessment Oral prep: Normal Labial closure: Adequate Leakage: None Mastication: Adequate Lingual Movement: Normal Oral stage: Normal for this Procedure - Pharyngeal Stage Initiation of Pharyngeal Stage Reflex: Normal Decreased laryngeal elevation: No Reduced Velopharyngeal Closure: yes Reduced pressure generation: Yes - mild reduced tongue-based retraction: Yes - mild Pre-swallow pooling in valleculae: None Pre-Swallow pooling in pyriforms: None Reduced Thyro-Hyoid approximation: Yes - mild Reduced epiglottic excursion: No Reduced pharyngeal peristalsis/contraction: No Multiple Swallows with: Effective Post-swallow residulas vallecular: Moderate - with puree Post-Swallow residuals in pyriforms: Mild - with puree Reduced Cricopharyngeal opening: No - Esophageal Stage Cricopharyngeal Function: Normal Upper Esophageal Transit: Normal Cervical Osteophytes noted: No - Fall Risk Assessment Medications/Conditions that increase fall risks include: Antidepressants, sedatives, anti-arrhythmic, diuretic, benzodiazipenes, neuroleptics. BP regulation problems, cardiac problems, balance or gait deficits, neurological problems. Fall Risk Actions Taken: No action needed - Behavioral Observations During evaluation process patient: was pleasant, was cooperative, able to answer questions, provided medical history - Treatment / Educational Needs: Treatment/Education Needs: Treatment consisted of patient education on the role of the Speech Pathologist. Patient's plan of care and golas were communicated as well as scheduling and attendance policies. Recommendations for initial home program were shared. Patient demonstrated understanding and verbalized agreement. - Impression/Summary Laryngeal Penetration: Yes, Flash, Cough, Cleared, during swallow Consistency: Thin Tracheal Aspiration: no Productive cough: No Effective Clearing: yes Compesatory strategies: Patient used reflexive second swallow to clear residue from puree Patient presents with: Normal swallow at eval Risk of Aspiration: Minimal Risk of nutritional compromise: WNL - Recommendations NPO: no Solid diet recommendations: Regular Liquid Diet Modification: Thin Strict aspiration precautions: No Dysphagia therapy with [employer]: no Recommended techniques: Fully Upright During Meal Supervision: Independent - Time Total Time: 15 - Plan of Care Strategies to optimize patient understanding include:: ongoing assessment of educational needs, implementation of educational strategies, and re-education. - - -: Thank you for the opportunity to work with this patient and his/her family. Should you have any questions about this patient's plan or progress, I can be reached at [phone]. Charge G Code? - - -: Yes ST F.L. Impairment Category - Rationale Based On Rationale Based On: Clin Find., Obj Measures - Swallowing Current G8996: CH 0% Impaired Goal G8997: CH 0% Impaired Discharge G8998: CH 0% Impaired
== END ==
LOC: RAD 07:55
PROVIDERS: ATTEND Internal Medicine Pulmonary Disease
DX: K21.9 Gastro-esophageal reflux disease without esophagitis (principal); R13.10 Dysphagia, unspecified
CPT/HCPCS: 74230; 92611; G8996; G8997; G8998

== ENCOUNTER 2018-01-11 11:18 | Observation (INO) | payer MEDICARE, MEDICAID ==
[2018-01-11] MEDS ORDERED: METHYLPREDNISOLONE INJ 125 MG/2 ML SDV IV ONE (11:26)
[2018-01-11] MEDS ORDERED: NORMAL SALINE 1000 ML 1,000 ML IV ONE (11:26)
[2018-01-11] MEDS ORDERED: MAGNESIUM SULFATE/D5W 1 GM/100 ML RTUPB IV ONE (11:26)
[2018-01-11] MEDS ORDERED: ALBUTEROL SULFATE 0.083% NEB 2.5 MG/3 ML AMPUL NEB ONE ×2 (11:27→14:17)
[2018-01-11 12:14] LABS: ABSOLUTE BASOPHILS # (AUTO) 0.1 10^3/uL (0.0-0.2); ABSOLUTE EOSINOPHILS # (AUTO) 0.1 10^3/uL (0.0-0.6); ABSOLUTE LYMPHOCYTES (AUTO) 3.4 10^3/uL (0.5-4.7); ABSOLUTE MONOCYTES (AUTO) 0.8 10^3/uL (0.1-1.4); ABSOLUTE NEUT (AUTO) 8.2 10^3/uL (1.7-8.2); BASOPHILS % (AUTO) 0.4 % (0-2); EOSINOPHILS % (AUTO) 0.7 % (0-6); HEMATOCRIT 46.2 % (37.9-51.0); HEMOGLOBIN 15.8 g/dL (13.5-17.0); LYMPHOCYTES % (AUTO) 26.9 % (13-45); MEAN CORPUSCULAR HEMOGLOBIN 29.1 pg (27.0-33.4); MEAN CORPUSCULAR HGB CONC 34.1 g/dL (32.0-36.0); MEAN CORPUSCULAR VOLUME 85 fl (80-97); MONOCYTES % (AUTO) 6.3 % (3-13); PLATELET COUNT 250 10^3/uL (150-450); RED BLOOD COUNT 5.42 10^6/uL (4.35-5.55); RED CELL DISTRIBUTION WIDTH 14.3 % (11.5-14.0); SEGMENTED NEUTROPHILS % (AUTO) 65.7 % (42-78); TOTAL CELLS COUNTED % (AUTO) 100 %; WHITE BLOOD COUNT 12.5 10^3/uL (4.0-10.5)
[2018-01-11 12:39] LABS: ALANINE AMINOTRANSFERASE 24 U/L (21-72); ALBUMIN 3.9 g/dL (3.5-5.0); ALKALINE PHOSPHATASE 82 U/L (38-126); ANION GAP 13 (5-19); ASPARTATE AMINO TRANSFERASE 22 U/L (17-59); BILIRUBIN,DIRECT 0.4 mg/dL (0.0-0.4); BILIRUBIN,TOTAL 0.7 mg/dL (0.2-1.3); BLOOD UREA NITROGEN 16 mg/dL (7-20); CALCIUM 9.7 mg/dL (8.4-10.2); CARBON DIOXIDE 24 mmol/L (22-30); CHLORIDE 108 mmol/L (98-107); CREATINE KINASE 141 U/L (55-170); GLUCOSE 96 mg/dL (75-110); POTASSIUM 4.3 mmol/L (3.6-5.0); TOTAL PROTEIN 7.4 g/dL (6.3-8.2)
[2018-01-11 12:51] LABS: CREATINE KINASE MB 1.54 ng/mL (<4.55)
[2018-01-11 12:52] LABS: TROPONIN I < 0.012 ng/mL
--- NOTE | 2018-01-11 13:14 | RADIOLOGY REPORT (SQ) ---
EXAM DESCRIPTION: CHEST SINGLE VIEW COMPLETED DATE/TIME: 01/11/2018 12:27 pm REASON FOR STUDY: bed 1 db COMPARISON: 08/28/2017 EXAM PARAMETERS: NUMBER OF VIEWS: One view. TECHNIQUE: Single frontal radiographic view of the chest acquired. RADIATION DOSE: NA LIMITATIONS: None. FINDINGS: LUNGS AND PLEURA: No opacities, masses or pneumothorax. No pleural effusion. MEDIASTINUM AND HILAR STRUCTURES: No masses. Contour normal. HEART AND VASCULAR STRUCTURES: Heart normal in size. Normal vasculature. BONES: No acute findings. HARDWARE: None in the chest. OTHER: No other significant finding. IMPRESSION: NO ACUTE RADIOGRAPHIC FINDING IN THE CHEST. TECHNICAL DOCUMENTATION: JOB ID: [id number] [employer]- All Rights Reserved Reading location - IP/workstation name: [email or web address]
[2018-01-11 14:06] LABS: VENOUS BLOOD BASE EXCESS -3.2 mmol/L; VENOUS BLOOD HCO3 22.3 mmol/L (20-32); VENOUS BLOOD PCO2 41.4 mmHg (35-63); VENOUS BLOOD PH 7.35 (7.30-7.42)
[2018-01-11] MEDS ORDERED: DOXYCYCLINE HYCLATE INJ 100 MG VIAL IV ONE (14:16)
--- NOTE | 2018-01-11 14:18 | ER Document Report ---
ED General - General Chief Complaint: Shortness Of Breath Stated Complaint: SHORTNESS OF BREATH Time Seen by Provider: 01/11/18 11:23 TRAVEL OUTSIDE OF THE [place] IN LAST 30 DAYS: No - HPI Patient complains to provider of: Shortness of breath Notes: Patient coming in for shortness of breath via EMS. Patient has a history of COPD states has recently restarted smoking saw his PCP yesterday started on azithromycin. Patient states this is not. His breathing therefore went to an urgent care today came to the ER via EMS at the urging of the care. Patient was found tachypneic with slight hypoxia SPO2 in the 90s. Patient was given a breathing treatment by EMS. Patient upon my evaluation is to tachypneic with audible wheezing otherwise patient is stable no signs of immediate respiratory compromise or overt respiratory distress - Related Data Allergies/Adverse Reactions: No Known Allergies Allergy (Verified 01/11/18 12:53) Past Medical History - Social History Smoking Status: Current Every Day Smoker Chew tobacco use (# tins/day): No Frequency of alcohol use: None Drug Abuse: None Family History: Reviewed & Not Pertinent, DM Patient has suicidal ideation: No Patient has homicidal ideation: No - Past Medical History Cardiac Medical History: Reports: Hx Hypertension Denies: Hx Coronary Artery Disease, Hx Heart Attack Pulmonary Medical History: Reports: Hx COPD Denies: Hx Asthma, Hx Bronchitis, Hx Pneumonia, Hx Tuberculosis Neurological Medical History: Denies: Hx Cerebrovascular Accident - hx 6 months ago left side weakness lasted about 10 min, Hx Seizures Renal/ Medical History: Denies: Hx Peritoneal Dialysis Musculoskeltal Medical History: Reports Hx Arthritis Psychiatric Medical History: Denies: Hx Depression Past Surgical History: Reports: Hx Appendectomy - Immunizations Immunizations up to date: Yes Hx Diphtheria, Pertussis, Tetanus Vaccination: Yes Review of Systems - Review of Systems Constitutional: No symptoms reported EENT: No symptoms reported Cardiovascular: No symptoms reported Respiratory: Cough, Short of breath, Sputum, Wheezing Gastrointestinal: No symptoms reported Genitourinary: No symptoms reported Male Genitourinary: No symptoms reported Musculoskeletal: No symptoms reported Skin: No symptoms reported Hematologic/Lymphatic: No symptoms reported Neurological/Psychological: No symptoms reported -: Yes All other systems reviewed and negative Physical Exam - Vital signs Vitals: Pulse Ox 97 01/11/18 11:20 Interpretation: Tachypneic - General General appearance: Appears well, Alert - HEENT Head: Normocephalic, Atraumatic Eyes: Normal Pupils: PERRL - Respiratory Respiratory status: No respiratory distress Chest status: Nontender Breath sounds: Rhonchi, Wheezing Chest palpation: Normal - Cardiovascular Rhythm: Regular Heart sounds: Normal auscultation Murmur: No - Abdominal Inspection: Normal Distension: No distension Bowel sounds: Normal Tenderness: Nontender Organomegaly: No organomegaly - Back Back: Normal, Nontender - Extremities General upper extremity: Normal inspection, Nontender, Normal color, Normal ROM , Normal temperature General lower extremity: Normal inspection, Nontender, Normal color, Normal ROM , Normal temperature, Normal weight bearing. No: Robert's sign - Neurological Neuro grossly intact: Yes Cognition: Normal Orientation: AAOx4 [place] Coma Scale Eye Opening: Spontaneous Pat Coma Scale Verbal: Oriented Pat Coma Scale Motor: Obeys Commands Pat Coma Scale Total: 15 Speech: Normal Motor strength normal: LUE, RUE, LLE, RLE Sensory: Normal - Psychological Associated symptoms: Normal affect, Normal mood - Skin Skin Temperature: Warm Skin Moisture: Dry Skin Color: Normal Course - Re-evaluation Re-evalutation: 01/11/18 15:35 Patient laboratory studies not show any significant changes however patient after breathing treatments magnesium Solu-Medrol states feeling slightly better did try to ambulate patient around the ER however patient never hypoxic SPO2 is to stay greater than 94 became significantly tachypneic with respiratory rate in the 40s. Patient case was discussed with PCP r agrees with plan doxycycline steroids and admission for further evaluation I agree with this plan - Vital Signs Vital signs: Temp Pulse Resp BP Pulse Ox 98.8 F 22 H 170/68 H 98 01/11/18 13:14 01/11/18 13:01 01/11/18 13:01 01/11/18 13:01 - Laboratory Result Diagrams: 01/11/18 11:45 01/11/18 11:45 Laboratory results interpreted by me: 01/11/18 01/11/18 11:45 11:45 WBC 12.5 H RDW 14.3 H Chloride 108 H Discharge - Discharge Clinical Impression: Acute exacerbation of chronic obstructive pulmonary disease (COPD) Cigarette nicotine dependence Qualifiers: Substance use status: uncomplicated Qualified Code(s): F17.210 - Nicotine dependence, cigarettes, uncomplicated Condition: Fair Disposition: ADMITTED INPATIENT Admitting Provider: [facility] Admitted: Telemetry
[2018-01-11 14:52] LABS: APPEARANCE,URINE CLEAR; BILIRUBIN,URINE NEGATIVE (NEGATIVE); COLOR,URINE YELLOW; GLUCOSE, URINE NEGATIVE (NEGATIVE); KETONES,URINE NEGATIVE (NEGATIVE); LEUKOCYTE ESTERASE,URINE NEGATIVE (NEGATIVE); NITRITE,URINE NEGATIVE (NEGATIVE); PROTEIN,URINE NEGATIVE (NEGATIVE); URINE SPECIFIC GRAVITY 1.017; UROBILINOGEN,URINE NEGATIVE mg/dL (<2.0)
[2018-01-11] MEDS ORDERED: IPRATROPIUM/ALBUTEROL 0.5-2.5 MG/3 ML AMPUL NEB PRN (18:02)
[2018-01-11] MEDS ORDERED: (PENDING PHARMACY ID) (Oxycodone Hcl/Acetaminophen [Percocet 10-325 Mg Tablet] 1 TAB) PO SCH (18:15)
[2018-01-11] MEDS: METHYLPREDNISOLONE INJ 125 MG/2 ML SDV IV SCH (18:54)
[2018-01-11] MEDS ORDERED: MULTIVITAMIN TABLET PO ONE (19:00)
[2018-01-11] MEDS ORDERED: ENOXAPARIN SODIUM INJ 40 MG/0.4 ML DISP.SYRIN SUBCUT ONE (19:30)
--- NOTE | 2018-01-11 19:42 | EKG REPORT ---
SEVERITY:- NORMAL ECG - SINUS RHYTHM : Confirmed by: Angélica Garcia MD 11-Jan-2018 19:41:26
[2018-01-11] MEDS ORDERED: LANSOPRAZOLE 30 MG TAB.RAP.DR PO ONE (20:00)
[2018-01-11] MEDS ORDERED: LEVOFLOXACIN 750 MG/D5W RTU 750 MG/150 ML RTUPB IV SCH (20:00)
--- NOTE | 2018-01-11 20:40 | PDOC H&P ---
History of Present Illness Admission Date/PCP: 01/11/18 14:41 LARY LOOMIS MD History of Present Illness: HUSSEIN LEON is a 67 year old male, he has a history of chronic obstructive pulmonary disease, I saw him in the office yesterday when he came for evaluation of acute onset, cough, shortness of breath, in the office he was evaluated, he was diagnosed with acute COPD exacerbation, he was prescribed antibiotic, p.o. prednisone and bronchodilators. He was upset because his sister is dying in [place] from cancer and he started back smoking again. He came to the emergency room this morning because of worsening respiratory symptoms, a chest x-ray was done there was no acute infiltrate to suggest pneumonia, he was treated with IV Solu-Medrol, bronchodilators and he was advised to be admitted to the hospital for further management of his COPD. Past Medical History Cardiac Medical History: Reports: Hypertension Pulmonary Medical History: Reports: Chronic Obstructive Pulmonary Disease (COPD) Musculoskeltal Medical History: Reports: Arthritis Past Surgical History Past Surgical History: Reports: Appendectomy Social History Smoking Status: Current Every Day Smoker Cigarettes Packs Per Day: 0.5 Last Time Smoked: 01/11/2018 Frequency of Alcohol Use: None Hx Recreational Drug Use: No Drugs: None Hx Prescription Drug Abuse: No - Advance Directive Resuscitation Status: Full Code Family History Family History: Reviewed & Not Pertinent, DM Parental Family History Reviewed: Yes Children Family History Reviewed: Yes Sibling(s) Family History Reviewed.: Yes Medication/Allergy Home Medications: Albuterol Sulfate [Proair HFA Inhalation Aerosol 8.5 gm MDI] 2 puff IH Q4HP PRN 01/11/18 Diazepam [Valium 5 mg Tablet] 5 mg PO QHS 01/11/18 Ipratropium/Albuterol Sulfate [Duoneb 3 ml Ampul] 1 vial NEB QIDP PRN 01/11/18 Multivitamin [Daily Multiple Vitamin] 1 tab PO DAILY 01/11/18 Oxycodone HCl/Acetaminophen [Percocet 10-325 mg Tablet] 1 tab PO QID 01/11/18 Pantoprazole Sodium [Protonix] 40 mg PO DAILY 01/11/18 Allergies/Adverse Reactions: No Known Allergies Allergy (Verified 01/11/18 12:53) Review of Systems Constitutional: ABSENT: chills, fever(s), headache(s), weight gain, weight loss Eyes: ABSENT: visual disturbances Ears: ABSENT: hearing changes Cardiovascular: ABSENT: chest pain, dyspnea on exertion, edema, orthropnea, palpitations Respiratory: PRESENT: cough, dyspnea, sputum Gastrointestinal: ABSENT: abdominal pain, constipation, diarrhea, hematemesis, hematochezia, nausea, vomiting Genitourinary: ABSENT: dysuria, hematuria Musculoskeletal: ABSENT: joint swelling Integumentary: ABSENT: rash, wounds Neurological: ABSENT: abnormal gait, abnormal speech, confusion, dizziness, focal weakness, syncope Psychiatric: ABSENT: anxiety, depression, homidical ideation, suicidal ideation Endocrine: ABSENT: cold intolerance, heat intolerance, menstrual abnormalities, polydipsia, polyuria Hematologic/Lymphatic: ABSENT: easy bleeding, easy bruising, lymphadenopathy Physical Exam Vital Signs: Temp Pulse Resp BP Pulse Ox 98.1 F 88 20 161/65 H 96 01/11/18 16:57 01/11/18 16:57 01/11/18 16:57 01/11/18 16:57 01/11/18 16:57 Intake & Output 01/10/18 01/11/18 01/12/18 06:59 06:59 06:59 Weight 56.7 kg General appearance: PRESENT: no acute distress, well-developed, well-nourished Head exam: PRESENT: atraumatic, normocephalic Eye exam: PRESENT: conjunctiva pink, EOMI, PERRLA Ear exam: PRESENT: normal external ear exam Mouth exam: PRESENT: moist, tongue midline Neck exam: PRESENT: full ROM Respiratory exam: PRESENT: wheezes Cardiovascular exam: PRESENT: RRR, +S1, +S2 Pulses: PRESENT: normal dorsalis pedis pul, +2 pedal pulses bilateral Vascular exam: PRESENT: normal capillary refill GI/Abdominal exam: PRESENT: normal bowel sounds, soft Rectal exam: PRESENT: deferred Neurological exam: PRESENT: alert, awake, oriented to person, oriented to place , oriented to time, oriented to situation, CN II-XII grossly intact Psychiatric exam: PRESENT: appropriate affect, normal mood Skin exam: PRESENT: dry, intact, warm Results Laboratory Results: 01/11/18 18:16 Troponin I < 0.012 Impressions: Chest X-Ray 01/11/18 11:20 IMPRESSION: NO ACUTE RADIOGRAPHIC FINDING IN THE CHEST. Assessment & Plan - Diagnosis (1) Acute exacerbation of chronic obstructive pulmonary disease (COPD) Is this a current diagnosis for this admission?: Yes Plan: Patient is admitted to be managed for acute COPD (2) Cigarette nicotine dependence Qualifiers: Substance use status: unspecified nicotine-induced disorder Qualified Code( s): F17.219 - Nicotine dependence, cigarettes, with unspecified nicotine- induced disorders Is this a current diagnosis for this admission?: Yes
[2018-01-11] MEDS ORDERED: DIAZEPAM 5 MG TABLET PO SCH (22:00)
[2018-01-11] MEDS: OXYCODONE-ACETAMINOPHEN 5-325 MG TABLET PO SCH (23:26)
[2018-01-11] MEDS: OXYCODONE HCL IR 5 MG TABLET PO SCH (23:26)
[2018-01-12] MEDS: METHYLPREDNISOLONE INJ 125 MG/2 ML SDV IV SCH ×2 (02:40→09:40)
[2018-01-12] MEDS: OXYCODONE-ACETAMINOPHEN 5-325 MG TABLET PO SCH ×2 (05:31→11:55)
[2018-01-12] MEDS: OXYCODONE HCL IR 5 MG TABLET PO SCH ×2 (05:31→11:55)
[2018-01-12] MEDS ORDERED: LANSOPRAZOLE 30 MG TAB.RAP.DR PO SCH (06:00)
[2018-01-12] MEDS ORDERED: ENOXAPARIN SODIUM INJ 40 MG/0.4 ML DISP.SYRIN SUBCUT SCH (10:00)
[2018-01-12] MEDS ORDERED: MULTIVITAMIN TABLET PO SCH (10:00)
[2018-01-12 12:38] VITALS: BP 129/63
--- NOTE | 2018-01-12 14:39 | PDOC DISCHARGE SUMMARY ---
General - Admit/Disc Date/PCP Admission Date/Primary Care Provider: 01/11/18 14:41 LARY LOOMIS MD Discharge Date: 01/12/18 - Discharge Diagnosis (1) Acute exacerbation of chronic obstructive pulmonary disease (COPD) Is this a current diagnosis for this admission?: Yes (2) Cigarette nicotine dependence Is this a current diagnosis for this admission?: Yes - Additional Information Resuscitation Status: Full Code Prescriptions: Levofloxacin [Levaquin 750 mg Tablet] 750 mg PO DAILY #10 tab Prednisone 40 mg PO DAILY #5 tablet Home Medications: Albuterol Sulfate [Proair HFA Inhalation Aerosol 8.5 gm MDI] 2 puff IH Q4HP PRN 01/11/18 Diazepam [Valium 5 mg Tablet] 5 mg PO QHS 01/11/18 Ipratropium/Albuterol Sulfate [Duoneb 3 ml Ampul] 1 vial NEB QIDP PRN 01/11/18 Multivitamin [Daily Multiple Vitamin] 1 tab PO DAILY 01/11/18 Oxycodone HCl/Acetaminophen [Percocet 10-325 mg Tablet] 1 tab PO QID 01/11/18 Pantoprazole Sodium [Protonix] 40 mg PO DAILY 01/11/18 Levofloxacin [Levaquin 750 mg Tablet] 750 mg PO DAILY #10 tab 01/12/18 Prednisone 40 mg PO DAILY #5 tablet 01/12/18 History of Present Illness History of Present Illness: HUSSEIN LEON is a 67 year old male, he has a history of chronic obstructive pulmonary disease, I saw him in the office yesterday when he came for evaluation of acute onset, cough, shortness of breath, in the office he was evaluated, he was diagnosed with acute COPD exacerbation, he was prescribed antibiotic, p.o. prednisone and bronchodilators. He was upset because his sister is dying in [place] from cancer and he started back smoking again. He came to the emergency room this morning because of worsening respiratory symptoms, a chest x-ray was done there was no acute infiltrate to suggest pneumonia, he was treated with IV Solu-Medrol, bronchodilators and he was advised to be admitted to the hospital for further management of his COPD. Hospital Course Hospital Course: Patient was admitted for the management of acute COPD exacerbation, he was treated with IV Solu-Medrol, bronchodilators, antibiotic. He was admitted for observation, he improved significantly with treatment, he will be discharged home today on p.o. prednisone and antibiotic. Physical Exam Vital Signs: Temp Pulse Resp BP Pulse Ox 97.8 F 75 16 129/63 H 93 01/12/18 12:00 01/12/18 12:00 01/12/18 12:00 01/12/18 12:00 01/12/18 12:00 Intake & Output 01/11/18 01/12/18 01/13/18 06:59 06:59 06:59 Intake Total 650 180 Balance 650 180 Weight 57.2 kg General appearance: PRESENT: no acute distress, well-developed, well-nourished Head exam: PRESENT: atraumatic, normocephalic Eye exam: PRESENT: conjunctiva pink, EOMI, PERRLA Ear exam: PRESENT: normal external ear exam Mouth exam: PRESENT: moist, tongue midline Neck exam: PRESENT: full ROM Respiratory exam: PRESENT: clear to auscultation tatianna Cardiovascular exam: PRESENT: RRR, +S1, +S2 Pulses: PRESENT: normal dorsalis pedis pul, +2 pedal pulses bilateral Vascular exam: PRESENT: normal capillary refill GI/Abdominal exam: PRESENT: normal bowel sounds, soft Rectal exam: PRESENT: deferred Neurological exam: PRESENT: alert, awake, oriented to person, oriented to place , oriented to time, oriented to situation, CN II-XII grossly intact Psychiatric exam: PRESENT: appropriate affect, normal mood Skin exam: PRESENT: dry, intact, warm Results Laboratory Results: 01/11/18 01/12/18 01/12/18 18:16 00:15 05:34 Troponin I < 0.012 < 0.012 < 0.012 Impressions: Chest X-Ray 01/11/18 11:20 IMPRESSION: NO ACUTE RADIOGRAPHIC FINDING IN THE CHEST. Qualifiers - * PATIENT BEING DISCHARGED WITH ANY OF THE FOLLOWING DIAGNOSIS: No VTE patient discharged on overlapping Therapy?: Yes
== END 2018-01-12 16:14 | disposition home or self-care (01) ==
LOC: ER 11:18 → INTOOBSV 14:41 → EH 14:41 → 4N 16:40
PROVIDERS: ADMIT Internal Medicine; ATTEND Internal Medicine
DX: J44.1 Chronic obstructive pulmonary disease with (acute) exacerbation (principal); F17.210 Nicotine dependence, cigarettes, uncomplicated; R06.82 Tachypnea, not elsewhere classified; Z79.899 Other long term (current) drug therapy
CPT/HCPCS: 93005; 94640; 99285; 96361; 96374; 96375; 36415 ×2; 82553; 82550; 85025; 80053; 81001; 84484 ×2; 82803; 71045; 93010; G0378 ×2; A9270 ×10; J3490; J2930 ×2; J1650 ×2; J3475; J7030; J1956

== ENCOUNTER 2019-02-01 11:20 | Inpatient (IN) | payer MEDICARE, MEDICAID ==
--- NOTE | 2019-02-01 11:51 | RADIOLOGY REPORT (SQ) ---
EXAM DESCRIPTION: CT HEAD WITHOUT COMPLETED DATE/TIME: 02/01/2019 11:30 am REASON FOR STUDY: bed 19 stroke alert COMPARISON: None. TECHNIQUE: Axial images acquired through the brain without intravenous contrast. Images reviewed wi th bone, brain and subdural windows. Additional sagittal and coronal reconstructions were generated. Images stored on PACS. All CT scanners at this facility use dose modulation, iterative reconstruction, and/or weight based d osing when appropriate to reduce radiation dose to as low as reasonably achievable (ALARA). [facility]: Dose Right [facility]: CareDose [facility]: Dose Right [facility]: Teradose 4D [facility]: Smart Technologies RADIATION DOSE: CT Rad equipment meets quality standard of care and radiation dose reduction techniq ues were employed. CTDIvol: 53.2 mGy. DLP: 991 mGy-cm. mGy. LIMITATIONS: None. FINDINGS: VENTRICLES: Normal size and contour. CEREBRUM: No masses. No hemorrhage. No midline shift. No evidence for acute infarction. Normal gra y/white matter differentiation. No areas of low density in the white matter. CEREBELLUM: No masses. No hemorrhage. No alteration of density. No evidence for acute infarction. EXTRAAXIAL SPACES: No fluid collections. No masses. ORBITS AND GLOBE: No intra- or extraconal masses. Normal contour of globe without masses. CALVARIUM: No fracture. PARANASAL SINUSES: No fluid or mucosal thickening. SOFT TISSUES: No mass or hematoma. OTHER: No other significant finding. IMPRESSION: NORMAL BRAIN CT WITHOUT CONTRAST. EVIDENCE OF ACUTE STROKE: NO. COMMENT: Pertinent findings on the imaging study reported as a CRITICAL RESULT to ER PROVIDER at11 :44 on 02/01/2019. Category of Critical Result: NA Quality ID # [id number]: Final reports with documentation of one or more dose reduction techniques (e.g., Au tomated exposure control, adjustment of the mA and/or kV according to patient size, use of iterative reconstruction technique) TECHNICAL DOCUMENTATION: JOB ID: [id number] [employer]- All Rights Reserved Reading location - IP/workstation name: [email or web address]
[2019-02-01 11:54] LABS: ABSOLUTE BASOPHILS # (AUTO) 0.1 10^3/uL (0.0-0.2); ABSOLUTE EOSINOPHILS # (AUTO) 0.2 10^3/uL (0.0-0.6); ABSOLUTE LYMPHOCYTES (AUTO) 2.3 10^3/uL (0.5-4.7); ABSOLUTE MONOCYTES (AUTO) 0.4 10^3/uL (0.1-1.4); ABSOLUTE NEUT (AUTO) 3.5 10^3/uL (1.7-8.2); EOSINOPHILS % (AUTO) 3.8 % (0-6); HEMATOCRIT 42.2 % (37.9-51.0); HEMOGLOBIN 14.4 g/dL (13.5-17.0); LYMPHOCYTES % (AUTO) 35.4 % (13-45); MEAN CORPUSCULAR HGB CONC 34.1 g/dL (32.0-36.0); MEAN CORPUSCULAR VOLUME 88 fl (80-97); MONOCYTES % (AUTO) 6.2 % (3-13); PLATELET COUNT 205 10^3/uL (150-450); RED CELL DISTRIBUTION WIDTH 15.5 % (11.5-14.0); SEGMENTED NEUTROPHILS % (AUTO) 53.6 % (42-78); TOTAL CELLS COUNTED % (AUTO) 100 %; WHITE BLOOD COUNT 6.5 10^3/uL (4.0-10.5)
[2019-02-01] MEDS ORDERED: HYDRALAZINE HCL INJ/PF 20 MG/1 ML SDV IV ONE (11:55)
[2019-02-01] MEDS ORDERED: ASPIRIN 325 MG TABLET PO ONE (11:56)
[2019-02-01 11:57] LABS: INTERNATIONAL RATION (INR) 1.02
--- NOTE | 2019-02-01 11:57 | ER Document Report ---
ED Neuro Symptoms/Deficit - General Stated Complaint: POSSIBLE STROKE Time Seen by Provider: 02/01/19 11:39 Notes: This is a 68-year-old male, history of COPD to our history of left upper left lower extremity weakness, slurred speech. Seems to be getting better according to family and patient. Patient states that he woke up at about 530 and had a couple coffee and everything was fine and then when out side and noticed he was having a hard time moving his left side. Having a hard time getting the words out. EMS was called. Patient was transferred immediately to the ER. Patient seen immediately on arrival. TRAVEL OUTSIDE OF THE [place] IN LAST 30 DAYS: No - HPI Patient complains to provider of: Difficulty standing, Difficulty walking, Facial Droop, Paresthesia, Speech Impairment, Weakness Onset: Just prior to arrival Symptoms are: Constant Duration: Better Quality of pain: No pain Severity: Mild Pain Level: Denies - Related Data Allergies/Adverse Reactions: No Known Allergies Allergy (Verified 01/11/18 12:53) Past Medical History - General Information source: Patient - Social History Smoking Status: Current Every Day Smoker Cigarette use (# per day): Yes Frequency of alcohol use: None Drug Abuse: None Lives with: Family Family History: Reviewed & Not Pertinent, DM - Past Medical History Cardiac Medical History: Reports: Hx Hypertension Denies: Hx Coronary Artery Disease, Hx Heart Attack Pulmonary Medical History: Reports: Hx COPD Denies: Hx Asthma, Hx Bronchitis, Hx Pneumonia, Hx Tuberculosis Neurological Medical History: Denies: Hx Cerebrovascular Accident - hx 6 months ago left side weakness lasted about 10 min, Hx Seizures Renal/ Medical History: Denies: Hx Peritoneal Dialysis Musculoskeletal Medical History: Reports Hx Arthritis Psychiatric Medical History: Denies: Hx Depression Past Surgical History: Reports: Hx Appendectomy - Immunizations Immunizations up to date: Yes Hx Diphtheria, Pertussis, Tetanus Vaccination: Yes Review of Systems - Review of Systems Notes: Constitutional: denies: Chills, Diaphoresis, Fever, Malaise, Weakness EENT: denies: Eye discharge, Blurred vision, Tearing, Double vision, Nose c ongestion, Nose discharge, Throat swelling, Mouth pain. Left-sided facial numbness and weakness Cardiovascular: denies: Palpitations, Heart racing, Orthopnea, Dyspnea, Chest pain Respiratory: denies: Cough, Hurts to breathe, Wheezing, Shortness of breath Gastrointestinal: denies: Abdominal pain, Diarrhea, Nausea, Vomiting, Black stools, bright red blood in stool Genitourinary: denies: Burning, Dysuria, Discharge, Frequency, Flank pain, Hematuria Musculoskeletal: denies: Joint pain, Joint swelling, Muscle pain, Muscle stiffness, back pain Hematologic/Lymphatic: denies: Anemia, Easy bleeding, Easy bruising, Blood clots Neurological/Psychological: denies: Confusion, Dementia, Depression, Loss of consciousness. Complaining of weakness of the left upper extremity, left lower extremity and paresthesias to the left side of face. Difficulty with speaking. Skin: No lesions, no masses, no skin breakdown, no abscesses Physical Exam - Vital signs Vitals: Pulse Resp BP Pulse Ox 58 L 24 H 151/94 H 100 02/01/19 11:40 02/01/19 11:40 02/01/19 11:40 02/01/19 11:40 Interpretation: Normal - General General appearance: Appears well, Alert - HEENT Head: Normocephalic, Atraumatic Eyes: Normal Pupils: PERRL - Respiratory Respiratory status: No respiratory distress Chest status: Nontender Breath sounds: Normal Chest palpation: Normal - Cardiovascular Rhythm: Regular Heart sounds: Normal auscultation Murmur: No - Abdominal Inspection: Normal Distension: No distension Bowel sounds: Normal Tenderness: Nontender Organomegaly: No organomegaly - Back Back: Normal, Nontender - Extremities General upper extremity: Normal inspection, Nontender, Normal color, Normal ROM, Normal temperature General lower extremity: Normal inspection, Nontender, Normal color, Normal ROM, Normal temperature, Normal weight bearing. No: Robert's sign - Neurological Neuro grossly intact: Yes Cognition: Normal Orientation: AAOx4 Pat Coma Scale Eye Opening: Spontaneous Pat Coma Scale Verbal: Oriented Pat Coma Scale Motor: Obeys Commands [place] Coma Scale Total: 15 Speech: Normal Cranial nerves: Facial palsy - Mild facial palsy on the left side of the face. Cerebellar coordination: Gait ataxia Motor strength normal: RUE, RLE. No: LUE, LLE - Mild weakness of the left upper extremity and left lower extremity. Additional motor exam normals: Pronator drift - No upper extremity pronator drift but does have slight drift of the left lower extremity.. No: Equal press feeder broomcorn - Weakness of the left press feeder broomcorn. Sensory: Altered light touch - On the left side of the face - Psychological Associated symptoms: Normal affect, Normal mood - Skin Skin Temperature: Warm Skin Moisture: Dry Skin Color: Normal Course - Re-evaluation Re-evalutation: 02/01/19 12:01 Patient seen immediately on arrival. CT head read by radiologist is negative for hemorrhage. Patient's blood pressure was high. Not a good candidate for beta-blockers due to COPD and heart rate in the 50s already. I ordered hydral azine 10 mg IV. Patient was being consented for thrombolytics but as adamantly refusing. I also presented option of transferring to higher level of care we could get intra-arterial thrombolytics at a neuro intervention center. Patient adamantly refusing. A Mini-Mental status exam was performed at bedside in the presence of the nurse and family members. Patient has a normal Mini-Mental status exam. Was able to verbalize the risks presented to him for not getting the definitive care. Patient states that he realizes what I have said that there is an increased risk of a head bleed and that could result in permanent disability or and has decided against that and states that he can live with his deficits. Conversation was also had in the presence of the patient and his sister she recommended that he be transferred but he refused. At this time we will proceed with conservative management keeping patient here. Aspirin has been ordered. We will begin the inpatient stroke work-up and contact medical team for admission. 02/01/19 12:06 Chest X-Ray 02/01/19 11:21 IMPRESSION: NO ACUTE RADIOGRAPHIC FINDING IN THE CHEST. Head CT 02/01/19 11:21 IMPRESSION: NORMAL BRAIN CT WITHOUT CONTRAST. EVIDENCE OF ACUTE STROKE: NO. 02/01/19 12:44 Laboratory 02/01/19 02/01/19 02/01/19 11:40 11:40 11:40 WBC 6.5 RBC 4.80 Hgb 14.4 Hct 42.2 MCV 88 MCH 30.0 MCHC 34.1 RDW 15.5 H Plt Count 205 Seg Neutrophils % 53.6 Lymphocytes % 35.4 Monocytes % 6.2 Eosinophils % 3.8 Basophils % 1.0 Absolute Neutrophils 3.5 Absolute Lymphocytes 2.3 Absolute Monocytes 0.4 Absolute Eosinophils 0.2 Absolute Basophils 0.1 PT 13.4 INR 1.02 APTT 29.9 Sodium 140.8 Potassium 4.3 Chloride 107 Carbon Dioxide 26 Anion Gap 8 BUN 16 Creatinine 1.44 H Est GFR ( Amer) 59 L Est GFR (Non-Af Amer) 49 L Glucose 106 POC Glucose Calcium 9.0 Total Bilirubin 0.6 Direct Bilirubin 0.3 Neonat Total Bilirubin Not Reportable Neonat Direct Bilirubin Not Reportable Neonat Indirect Bili Not Reportable AST 28 ALT 19 L Alkaline Phosphatase 71 Creatine Kinase 176 H CK-MB (CK-2) Troponin I Total Protein 7.2 Albumin 4.1 02/01/19 02/01/19 11:40 12:05 WBC RBC Hgb Hct MCV MCH MCHC RDW Plt Count Seg Neutrophils % Lymphocytes % Monocytes % Eosinophils % Basophils % Absolute Neutrophils Absolute Lymphocytes Absolute Monocytes Absolute Eosinophils Absolute Basophils PT INR APTT Sodium Potassium Chloride Carbon Dioxide Anion Gap BUN Creatinine Est GFR ( Amer) Est GFR (Non-Af Amer) Glucose POC Glucose 108 Calcium Total Bilirubin Direct Bilirubin Neonat Total Bilirubin Neonat Direct Bilirubin Neonat Indirect Bili AST ALT Alkaline Phosphatase Creatine Kinase CK-MB (CK-2) 2.10 Troponin I < 0.012 Total Protein Albumin - Vital Signs Vital signs: Temp Pulse Resp BP Pulse Ox 58 L 17 137/90 H 100 02/01/19 11:40 02/01/19 12:16 02/01/19 12:16 02/01/19 12:16 - Laboratory Result Diagrams: 02/01/19 11:40 02/01/19 11:40 Laboratory results interpreted by me: 02/01/19 02/01/19 11:40 11:40 RDW 15.5 H Creatinine 1.44 H Est GFR ( Amer) 59 L Est GFR (Non-Af Amer) 49 L ALT 19 L Creatine Kinase 176 H - EKG Interpretation by [place] EKG shows normal: Sinus rhythm, [place], Intervals, QRS Complexes, ST-T Waves Critical Care Note - Critical Care Note Total time excluding time spent on procedures (mins): 35 Comments: acute stroke, hypertensive emergency Discharge - Discharge Clinical Impression: Acute embolic stroke, Hypertensive emergency, no CHF Condition: Good Disposition: ADMITTED INPATIENT Admitting Provider: [facility] Admitted: [facility]
[2019-02-01 11:58] LABS: PARTIAL THROMBOPLASTIN TIME 29.9 SEC (23.5-35.8)
[2019-02-01 12:01] LABS: PROTHROMBIN TIME 13.4 SEC (11.4-15.4)
--- NOTE | 2019-02-01 12:01 | RADIOLOGY REPORT (SQ) ---
EXAM DESCRIPTION: CHEST SINGLE VIEW COMPLETED DATE/TIME: 02/01/2019 11:33 am REASON FOR STUDY: bed 19 stroke alert COMPARISON: None. EXAM PARAMETERS: NUMBER OF VIEWS: One view. TECHNIQUE: Single frontal radiographic view of the chest acquired. RADIATION DOSE: NA LIMITATIONS: None. FINDINGS: LUNGS AND PLEURA: No opacities, masses or pneumothorax. No pleural effusion. MEDIASTINUM AND HILAR STRUCTURES: No masses. Contour normal. HEART AND VASCULAR STRUCTURES: Heart normal in size. Normal vasculature. BONES: No acute findings. HARDWARE: None in the chest. OTHER: No other significant finding. IMPRESSION: NO ACUTE RADIOGRAPHIC FINDING IN THE CHEST. TECHNICAL DOCUMENTATION: JOB ID: [id number] [employer]- All Rights Reserved Reading location - IP/workstation name: [email or web address]
[2019-02-01] MEDS ORDERED: IPRATROPIUM/ALBUTEROL 0.5-2.5 MG/3 ML AMPUL NEB ONE (12:06)
--- NOTE | 2019-02-01 12:08 | ER Document Report ---
ED NIH Stroke Scale - NIH Stroke Scale *: 1. NIH scale should be completed with appropriate accompanying assessment tools. *: 2. The NIH should reflect what the patient is capable of doing and should not be coached by the clinician. 1a. Level of Consciousness: 0=Alert;keenly responsive -: 1=Drowsy -: 2=Obtunded -: 3=Coma/unresponsive or reflex to noxious stimuli. 1a. Responses: 0 1b. Orientation Questions: a. What month is it? -: b. How old are you? -: 0=Answers both questions correctly. -: 1=Answers one question correctly or patient is intubated or has orotracheal trauma. -: 2=Answers neither question correctly. 1b. Responses: 0 1c. Response to commands: a. Open and close eyes? -: b. Prison Officer and release hand? -: Credit is given despite weakness. Demonstration of task is permitted. Substitute command if hands cannot be used. -: 0=Performs both tasks correctly -: 1=Performs one task correctly -: 2=Performs neither task correctly 1c. Responses: 0 2. Gaze: Establish eye contact and instruct patient to "Follow my finger" -: 0=Normal -: 1=Partial gaze palsy. Gaze is abnormal in one or both eyes, but where forced deviation or total gaze paresis is not present. -: 2=Forced deviation or total gaze paresis. 2. Responses: 0 3. Visual [place]: Sees fingers in all four quadrants. -: 0=No visual loss. -: 1=Partial hemianopsia. -: 2=Complete hemianopsia. -: 3=Bilateral hemianopsia (including Cortical blindness) 3. Responses: 0 4. Facial Movement: Instruct patient to: -: a. Show me your teeth -: b. Raise your eyebrows -: c. Close your eyes -: d. Smile -: 0=Normal symmetrical movement -: 1=Minor paralysis (flattened nasolabial fold, asymmetry on smiling). -: 2=Partial paralysis (total or near total paralysis of lower face). -: 3=Complete paralysis of upper and lower face 4. Responses: 1 5. Motor functions (left arm): Alternate sides and extend each arm with palms down (90 degrees if sitting or 45 degrees for supine). -: 0=No drift;limb holds for full 10 seconds. -: 1=Drift; limb holds but drifts down before full 10 seconds, but does not hit bed. -: 2=Some effort against gravity; limb cannot get to or maintain position. -: 3=No effort against gravity; limb falls. -: 4=No movement. -: UN=Amputation, joint fusion, explain in comments. 5. Responses (left arm): 0 5. Motor Functions (right arm): Alternate sides and extend each arm with palms down (90 degrees if sitting or 45 degrees for supine). -: 0=No drift;limb holds for full 10 seconds. -: 1=Drift; limb holds but drifts down before full 10 seconds, but does not hit bed. -: 2=Some effort against gravity; limb cannot get to or maintain position. -: 3=No effort against gravity; limb falls. -: 4=No movement. -: UN=Amputation, joint fusion, explain in comments. 5. Responses (right arm): 0 6. Motor Functions (left leg): With patient lying supine, alternate sides and extend each leg (30 degrees always while supine). -: 0=No drift, leg holds position for full 5 seconds -: 1=Drift; leg falls before full 5 seconds but does not hit bed. -: 2=Some effort against gravity, leg falls to bed but some effort against gravity. -: 3=No effort against gravity, leg falls to bed immediately. -: 4=No movement. -: UN=Amputation, joint fusion; explain in comments. 6. Responses (left leg): 1 6. Motor Functions (right leg): With patient lying supine, alternate sides and extend each leg (30 degrees always while supine). -: 0=No drift, leg holds position for full 5 seconds -: 1=Drift; leg falls before full 5 seconds but does not hit bed. -: 2=Some effort against gravity, leg falls to bed but some effort against gravity. -: 3=No effort against gravity, leg falls to bed immediately. -: 4=No movement. -: UN=Amputation, joint fusion; explain in comments. 6. Responses (right leg): 0 7. Limb Ataxia: With eyes open instruct patient to: -: a. "Touch your finger to your nose". -: b. "Touch your heel to your mora" -: 0=Absent -: 1=Present in one limb. -: 2=Present in two limbs. -: UN=Amputation or joint fusion; explain in comments. 7. Responses: 1 7. If ataxia present choose as appropriate: Left arm 8. Sensory: Test sensation using pinprick or noxious stimuli. Test as many body parts as possible. -: 0=Normal;no sensory loss -: 1=Mile to moderate sensory loss (patient feels pin prick but is less sharp on affected side). -: 2=Severe or total sensory loss. 8. Responses: 1 9. Best Language: Instruct patient to: -: a. "Describe what you see in this picture." -: b. "Name the items in this picture." -: c. "Read these sentences." -: 0=No aphasia, normal -: 1=Mild to moderate aphasia. -: 2=Severe aphasia -: 3=Mute, global aphasia, no usable speech or auditory comprehension. 9. Responses: 0 10. Articulation, Dysarthia: Instruct patient to: -: "Read these words" or "Repeat these words" -: 0=Normal -: 1=Mild to moderate; patient may slur some words but can be understood without difficulty. -: 2=Severe; patients speech so slurred as to be unintelligible in the absence of dysphasia. -: UN=Intubated or other physical barrier, explain in comments. 10. Responses: 0 11. Extinction or inattention: 0=No abnormality -: 1= Visual, tactile, auditory, spatial, or personal inattention or extinction to bilateral simulation in one or the sensory modalities. -: 2=Profound anton-inattention or anton-inattention to more than one modality; does not recognize own hand. 11. Responses: 0 Total Score: 4
[2019-02-01 12:21] LABS: ALANINE AMINOTRANSFERASE 19 U/L (21-72); ALBUMIN 4.1 g/dL (3.5-5.0); ALKALINE PHOSPHATASE 71 U/L (38-126); ANION GAP 8 (5-19); ASPARTATE AMINO TRANSFERASE 28 U/L (17-59); BILIRUBIN,DIRECT 0.3 mg/dL (0.0-0.4); BILIRUBIN,TOTAL 0.6 mg/dL (0.2-1.3); BLOOD UREA NITROGEN 16 mg/dL (7-20); CARBON DIOXIDE 26 mmol/L (22-30); CHLORIDE 107 mmol/L (98-107); CREATINE KINASE 176 U/L (55-170); GLUCOSE 106 mg/dL (75-110); POTASSIUM 4.3 mmol/L (3.6-5.0); SODIUM 140.8 mmol/L (137-145); TOTAL PROTEIN 7.2 g/dL (6.3-8.2)
[2019-02-01 12:38] LABS: TROPONIN I < 0.012 ng/mL
--- NOTE | 2019-02-01 13:34 | EKG REPORT ---
SEVERITY:- BORDERLINE ECG - SINUS RHYTHM LA ABNORMALITY. NONSPECIFIC ST-T CHANGES LATERAL LEADS. : Confirmed by: Kevin Sams MD 01-Feb-2019 13:33:26
--- NOTE | 2019-02-01 14:38 | RADIOLOGY REPORT (SQ) ---
EXAM DESCRIPTION: MRI HEAD WITHOUT COMPLETED DATE/TIME: 02/01/2019 2:19 pm REASON FOR STUDY: acute cva COMPARISON: None. TECHNIQUE: Multiplanar imaging includes non-contrasted T1, T2, FLAIR, and diffusion with ADC map seq uences. Images stored on PACS. LIMITATIONS: None. FINDINGS: ANATOMY: No anomalies. Normal vascular flow voids. Pituitary fossa normal. CSF SPACES: Normal in size and contour. No hemorrhage. CEREBRUM: Sulci and gyri normal in size and contour. Normal white matter signal on FLAIR imaging. No evidence of hemorrhage, mass, or extraaxial fluid collection. POSTERIOR FOSSA: No signal alteration. No hemorrhage. No edema, masses or mass effect. Internal warren tory canals, cerebello-pontine angles, mastoids normal. DIFFUSION IMAGING: There is a small acute diffusion restricting infarction of the left medial pete (s eries 4, image 7). ORBITS: No masses. Globes normal. PARANASAL SINUSES: No fluid levels. Mucosa normal. OTHER: No other significant finding. IMPRESSION: There is a small acute diffusion restricting infarction of the left medial pete (series 4, image 7). EVIDENCE OF ACUTE STROKE: YES. Findings reported by the [facility] critical findings notification system at the time of interpretation. TECHNICAL DOCUMENTATION: JOB ID: [id number] [employer]- All Rights Reserved Reading location - IP/workstation name: [email or web address]
[2019-02-01] MEDS ORDERED: HYDRALAZINE HCL INJ/PF 20 MG/1 ML SDV IV PRN (14:54)
--- NOTE | 2019-02-01 15:56 | RADIOLOGY REPORT (SQ) ---
EXAM DESCRIPTION: CAROTID DOPPLER COMPLETED DATE/TIME: 02/01/2019 3:40 pm REASON FOR STUDY: stroke COMPARISON: None. TECHNIQUE: Grayscale ultrasound, Doppler velocity and spectra, and color Doppler images acquired of the extra-cranial carotid and vertebral arteries. Images stored on PACS. LIMITATIONS: None. FINDINGS: RIGHT CAROTID CCA Velocities: Within normal limits. ICA Velocities Peak systolic 1.08 m/s. End diastolic 0.25 m/s. Proximal ICA/CCA peak systolic ratio 1.1. Spectra normal. No significant plaque. LEFT CAROTID CCA Velocities: Within normal limits. ICA Velocities Peak systolic 1.07 m/s. End diastolic 0.33 m/s. Proximal ICA/CCA peak systolic ratio 1.38. Spectra normal. No significant plaque. VERTEBRAL ARTERIES: Antegrade flow. Normal waveforms. SUBCLAVIAN ARTERIES: No finding. OTHER: No other significant finding. IMPRESSION: NO HEMODYNAMICALLY SIGNIFICANT STENOSIS. COMMENT: Quality ID #[id number]: Velocity criteria are extrapolated from the diameter data as defined by t he Society of Radiologists in Ultrasound Consensus Conference. Radiology 2003: 229; 340-346. TECHNICAL DOCUMENTATION: JOB ID: [id number] [employer]- All Rights Reserved Reading location - IP/workstation name: [email or web address]
[2019-02-01] MEDS: ASPIRIN/DIPYRIDAMOLE 25-200 MG 1 CAP.SR CPMP.12HR PO SCH (16:04)
[2019-02-01] MEDS: ENOXAPARIN SODIUM INJ 40 MG/0.4 ML DISP.SYRIN SUBCUT SCH (16:53)
--- NOTE | 2019-02-01 17:34 | PDOC H&P ---
History of Present Illness Admission Date/PCP: 02/01/19 12:32 LARY LOOMIS MD History of Present Illness: HUSSEIN LEON is a 68 year old male, He came to the emergency room for evalu ation of acute onset left-sided weakness, slurred speech within the last 3 hours, CAT scan of the head was done it was negative for any acute cerebral infarction.Patient was within the 3-hour window for the administration of TPA but he declined that option, subsequent MRI brain that was done demonstrated small acute infarction of the left medial pete Past Medical History Cardiac Medical History: Reports: Hypertension Pulmonary Medical History: Reports: Chronic Obstructive Pulmonary Disease (COPD) Musculoskeltal Medical History: Reports: Arthritis Past Surgical History Past Surgical History: Reports: Appendectomy Social History Lives with: Family Smoking Status: Current Every Day Smoker Frequency of Alcohol Use: None Hx Recreational Drug Use: No Drugs: None Hx Prescription Drug Abuse: No Family History Family History: Reviewed & Not Pertinent, DM Parental Family History Reviewed: Yes Children Family History Reviewed: Yes Sibling(s) Family History Reviewed.: Yes Medication/Allergy Home Medications: Albuterol Sulfate [Proair Hfa Inhalation Aerosol 8.5 gm Mdi] 2 puff IH QIDP PRN 02/01/19 Diazepam [Valium 5 mg Tablet] 5 mg PO HSP PRN 02/01/19 Gabapentin Enacarbil [Horizant] 600 mg PO DAILY 02/01/19 Hydroxyzine HCl [Atarax 25 mg Tablet] 1 tab PO HSP PRN 02/01/19 Ipratropium/Albuterol Sulfate [Duoneb 3 ml Ampul] 3 ml NEB RTQIDP PRN 02/01/19 Oxycodone HCl/Acetaminophen [Percocet 10-325 Mg Tablet] 1 each PO QIDP PRN 02/01/19 Allergies/Adverse Reactions: No Known Allergies Allergy (Verified 02/01/19 13:42) Review of Systems Constitutional: ABSENT: chills, fever(s), headache(s), weight gain, weight loss Eyes: ABSENT: visual disturbances Ears: ABSENT: hearing changes Cardiovascular: ABSENT: chest pain, dyspnea on exertion, edema, orthropnea, palpitations Respiratory: ABSENT: cough, hemoptysis Gastrointestinal: ABSENT: abdominal pain, constipation, diarrhea, hematemesis, hematochezia, nausea, vomiting Genitourinary: ABSENT: dysuria, hematuria Musculoskeletal: ABSENT: joint swelling Integumentary: ABSENT: rash, wounds Neurological: PRESENT: paresthesias, weakness Psychiatric: ABSENT: anxiety, depression, homidical ideation, suicidal ideation Endocrine: ABSENT: cold intolerance, heat intolerance, menstrual abnormalities, polydipsia, polyuria Hematologic/Lymphatic: ABSENT: easy bleeding, easy bruising, lymphadenopathy Physical Exam Vital Signs: Temp Pulse Resp BP Pulse Ox 97.0 F 64 21 H 151/82 H 97 02/01/19 13:41 02/01/19 16:55 02/01/19 17:01 02/01/19 17:01 02/01/19 17:01 Intake & Output 01/31/19 02/01/19 02/02/19 06:59 06:59 06:59 Weight 53.7 kg General appearance: PRESENT: no acute distress Head exam: PRESENT: atraumatic, normocephalic Eye exam: PRESENT: PERRLA Neck exam: PRESENT: full ROM Respiratory exam: PRESENT: clear to auscultation tatianna Cardiovascular exam: PRESENT: RRR, +S1, +S2 Vascular exam: PRESENT: normal capillary refill GI/Abdominal exam: PRESENT: normal bowel sounds, soft Rectal exam: PRESENT: deferred Neurological exam: PRESENT: alert, motor sensory deficit Psychiatric exam: PRESENT: appropriate affect, normal mood Skin exam: PRESENT: dry, intact, warm Results Laboratory Results: 02/01/19 11:40 02/01/19 11:40 02/01/19 02/01/19 11:40 11:40 WBC 6.5 RBC 4.80 Hgb 14.4 Hct 42.2 MCV 88 MCH 30.0 MCHC 34.1 RDW 15.5 H Plt Count 205 Seg Neutrophils % 53.6 Lymphocytes % 35.4 Monocytes % 6.2 Eosinophils % 3.8 Basophils % 1.0 Absolute Neutrophils 3.5 Absolute Lymphocytes 2.3 Absolute Monocytes 0.4 Absolute Eosinophils 0.2 Absolute Basophils 0.1 Sodium 140.8 Potassium 4.3 Chloride 107 Carbon Dioxide 26 Anion Gap 8 BUN 16 Creatinine 1.44 H Est GFR ( Amer) 59 L Est GFR (Non-Af Amer) 49 L Glucose 106 Calcium 9.0 Total Bilirubin 0.6 AST 28 ALT 19 L Alkaline Phosphatase 71 Total Protein 7.2 Albumin 4.1 02/01/19 02/01/19 11:40 11:40 Creatine Kinase 176 H CK-MB (CK-2) 2.10 Troponin I < 0.012 Impressions: Chest X-Ray 02/01/19 11:21 IMPRESSION: NO ACUTE RADIOGRAPHIC FINDING IN THE CHEST. Head CT 02/01/19 11:21 IMPRESSION: NORMAL BRAIN CT WITHOUT CONTRAST. EVIDENCE OF ACUTE STROKE: NO. Carotid Doppler Study 02/01/19 12:04 IMPRESSION: NO HEMODYNAMICALLY SIGNIFICANT STENOSIS. Head MRI 02/01/19 12:04 IMPRESSION: There is a small acute diffusion restricting infarction of the left medial pete (series 4, image 7). EVIDENCE OF ACUTE STROKE: YES. Findings reported by the [facility] critical findings notification system at the time of interpretation. Assessment & Plan - Diagnosis (1) Acute CVA (cerebrovascular accident) Is this a current diagnosis for this admission?: Yes Plan: Patient is admitted for management of acute CVA according stroke protocol (2) Left pontine CVA Is this a current diagnosis for this admission?: Yes
[2019-02-01 19:32] LABS: CREATINE KINASE MB 1.36 ng/mL (<4.55)
[2019-02-01 19:37] LABS: TROPONIN I < 0.012 ng/mL
[2019-02-01] MEDS: NICOTINE 14 MG/24 HR PATCH.TD24 TD PRN (20:50)
[2019-02-01] MEDS: ATORVASTATIN CALCIUM 80 MG TABLET PO SCH (22:14)
[2019-02-01] MEDS: OXYCODONE HCL IR 5 MG TABLET PO PRN (22:14)
[2019-02-01] MEDS: OXYCODONE-ACETAMINOPHEN 5-325 MG TABLET PO PRN (22:15)
[2019-02-02] MEDS ORDERED: ALBUTEROL SULFATE HFA (90 MCG/PUFF) 200 PUFF/8.5 GM MDI IH ONE (00:19)
[2019-02-02 01:17] LABS: CREATINE KINASE MB 2.03 ng/mL (<4.55)
[2019-02-02 01:20] LABS: TROPONIN I < 0.012 ng/mL
[2019-02-02 07:26] LABS: TROPONIN I < 0.012 ng/mL
[2019-02-02] MEDS: NICOTINE 14 MG/24 HR PATCH.TD24 TD PRN (09:35)
[2019-02-02] MEDS: ASPIRIN/DIPYRIDAMOLE 25-200 MG 1 CAP.SR CPMP.12HR PO SCH (09:35)
[2019-02-02] MEDS: ENOXAPARIN SODIUM INJ 40 MG/0.4 ML DISP.SYRIN SUBCUT SCH (09:35)
[2019-02-02] MEDS: ALBUTEROL SULFATE HFA (90 MCG/PUFF) 200 PUFF/8.5 GM MDI IH PRN (09:36)
[2019-02-02] MEDS: OXYCODONE HCL IR 5 MG TABLET PO PRN ×2 (09:39→22:02)
[2019-02-02] MEDS: OXYCODONE-ACETAMINOPHEN 5-325 MG TABLET PO PRN ×2 (09:39→22:02)
[2019-02-02] MEDS ORDERED: ONDANSETRON HCL INJ/PF 4 MG/2 ML SDV ONE (12:33)
--- NOTE | 2019-02-02 20:07 | PDOC PROGRESS REPORT ---
Subjective Progress Note for:: 02/02/19 Subjective:: Patient was seen by the bedside he was admitted today when he sustained left pontine infarct with right-sided paralysis Reason For Visit: CVA Physical Exam Vital Signs: Temp Pulse Resp BP Pulse Ox 98.0 F 53 L 18 126/68 H 98 02/02/19 13:33 02/02/19 14:00 02/02/19 13:33 02/02/19 13:33 02/02/19 13:33 Intake & Output 02/01/19 02/02/19 02/03/19 06:59 06:59 06:59 Intake Total 211 1044 Balance 211 1044 Weight 54.3 kg General appearance: PRESENT: no acute distress Eye exam: PRESENT: PERRLA Respiratory exam: PRESENT: clear to auscultation tatianna Cardiovascular exam: PRESENT: +S1, +S2 GI/Abdominal exam: PRESENT: soft Neurological exam: PRESENT: alert, motor sensory deficit - Right-sided weakness Results Laboratory Results: 02/01/19 11:40 02/01/19 11:40 02/01/19 02/01/19 02/01/19 11:40 11:40 18:21 Creatine Kinase 176 H 130 CK-MB (CK-2) 2.10 Troponin I < 0.012 02/01/19 02/02/19 02/02/19 18:21 00:23 00:23 Creatine Kinase 172 H CK-MB (CK-2) 1.36 2.03 Troponin I < 0.012 < 0.012 02/02/19 02/02/19 06:08 06:08 Creatine Kinase 235 H CK-MB (CK-2) 3.00 Troponin I < 0.012 Impressions: Chest X-Ray 02/01/19 11:21 IMPRESSION: NO ACUTE RADIOGRAPHIC FINDING IN THE CHEST. Head CT 02/01/19 11:21 IMPRESSION: NORMAL BRAIN CT WITHOUT CONTRAST. EVIDENCE OF ACUTE STROKE: NO. Carotid Doppler Study 02/01/19 12:04 IMPRESSION: NO HEMODYNAMICALLY SIGNIFICANT STENOSIS. Head MRI 02/01/19 12:04 IMPRESSION: There is a small acute diffusion restricting infarction of the left medial pete (series 4, image 7). EVIDENCE OF ACUTE STROKE: YES. Findings reported by the [facility] critical findings notification system at the time of interpretation. Assessment & Plan - Diagnosis (1) Acute CVA (cerebrovascular accident) Is this a current diagnosis for this admission?: Yes Plan: Patient is admitted for management of acute CVA according to stroke protocol (2) Left pontine CVA Is this a current diagnosis for this admission?: Yes
[2019-02-02] MEDS ORDERED: HYDROXYZINE HCL 10 MG TABLET PO PRN (20:17)
[2019-02-02] MEDS ORDERED: IPRATROPIUM/ALBUTEROL 0.5-2.5 MG/3 ML AMPUL NEB PRN (20:17)
[2019-02-02] MEDS ORDERED: DIAZEPAM 5 MG TABLET PO PRN (20:17)
[2019-02-02] MEDS ORDERED: (PENDING PHARMACY ID) (Oxycodone Hcl/Acetaminophen [Percocet 10-325 Mg Tablet] 1 EACH) PO PRN (20:17)
[2019-02-02] MEDS: ATORVASTATIN CALCIUM 80 MG TABLET PO SCH (21:59)
[2019-02-03] MEDS: IPRATROPIUM/ALBUTEROL 0.5-2.5 MG/3 ML AMPUL NEB PRN ×2 (08:53→16:56)
[2019-02-03] MEDS: ASPIRIN/DIPYRIDAMOLE 25-200 MG 1 CAP.SR CPMP.12HR PO SCH (09:57)
[2019-02-03] MEDS: ENOXAPARIN SODIUM INJ 40 MG/0.4 ML DISP.SYRIN SUBCUT SCH (09:57)
[2019-02-03] MEDS ORDERED: (PENDING PHARMACY ID) (Gabapentin Enacarbil [Horizant] 600 MG) PO SCH (10:00)
[2019-02-03] MEDS: OXYCODONE-ACETAMINOPHEN 5-325 MG TABLET PO PRN (10:02)
[2019-02-03] MEDS: NICOTINE 14 MG/24 HR PATCH.TD24 TD PRN (10:03)
[2019-02-03] MEDS: OXYCODONE HCL IR 5 MG TABLET PO PRN (10:03)
[2019-02-03] MEDS: ONDANSETRON HCL INJ/PF 4 MG/2 ML SDV IV PRN (14:42)
[2019-02-03] MEDS: ALBUTEROL SULFATE HFA (90 MCG/PUFF) 200 PUFF/8.5 GM MDI IH PRN (14:45)
--- NOTE | 2019-02-03 20:41 | PDOC PROGRESS REPORT ---
Subjective Progress Note for:: 02/03/19 Subjective:: Patient seen by the bedside he complained of vomiting after food intake, he had a stroke with right-sided weakness Reason For Visit: CVA Physical Exam Vital Signs: Temp Pulse Resp BP Pulse Ox 97.9 F 59 L 17 156/62 H 97 02/03/19 16:11 02/03/19 19:00 02/03/19 16:56 02/03/19 16:11 02/03/19 16:56 Intake & Output 02/02/19 02/03/19 02/04/19 06:59 06:59 06:59 Intake Total 211 1754 442 Balance 211 1754 442 Weight 54.3 kg 53.7 kg General appearance: PRESENT: no acute distress Eye exam: PRESENT: PERRLA Neck exam: PRESENT: full ROM Respiratory exam: PRESENT: clear to auscultation tatianna Cardiovascular exam: PRESENT: RRR, +S1, +S2 Vascular exam: PRESENT: normal capillary refill GI/Abdominal exam: PRESENT: normal bowel sounds, soft Rectal exam: PRESENT: deferred Neurological exam: PRESENT: alert, CN II-XII grossly intact Psychiatric exam: PRESENT: appropriate affect, normal mood Skin exam: PRESENT: dry, intact, warm. ABSENT: cyanosis, rash Results Laboratory Results: 02/01/19 11:40 02/01/19 11:40 02/01/19 02/01/19 02/01/19 11:40 11:40 18:21 Creatine Kinase 176 H 130 CK-MB (CK-2) 2.10 Troponin I < 0.012 02/01/19 02/02/19 02/02/19 18:21 00:23 00:23 Creatine Kinase 172 H CK-MB (CK-2) 1.36 2.03 Troponin I < 0.012 < 0.012 02/02/19 02/02/19 06:08 06:08 Creatine Kinase 235 H CK-MB (CK-2) 3.00 Troponin I < 0.012 Impressions: Chest X-Ray 02/01/19 11:21 IMPRESSION: NO ACUTE RADIOGRAPHIC FINDING IN THE CHEST. Head CT 02/01/19 11:21 IMPRESSION: NORMAL BRAIN CT WITHOUT CONTRAST. EVIDENCE OF ACUTE STROKE: NO. Carotid Doppler Study 02/01/19 12:04 IMPRESSION: NO HEMODYNAMICALLY SIGNIFICANT STENOSIS. Head MRI 02/01/19 12:04 IMPRESSION: There is a small acute diffusion restricting infarction of the left medial pete (series 4, image 7). EVIDENCE OF ACUTE STROKE: YES. Findings reported by the [facility] critical findings notification system at the time of interpretation. Assessment & Plan - Diagnosis (1) Acute CVA (cerebrovascular accident) Is this a current diagnosis for this admission?: Yes Plan: Patient is admitted for management of acute CVA according to stroke protocol (2) Left pontine CVA Is this a current diagnosis for this admission?: Yes (3) COPD with acute exacerbation Is this a current diagnosis for this admission?: Yes (4) Vomiting Qualifiers: Vomiting type: unspecified Vomiting Intractability: non-intractable Nausea presence: without nausea Qualified Code(s): R11.11 - Vomiting without nausea Is this a current diagnosis for this admission?: Yes Plan: Order upper GI series, ultrasound of the gallbladder
[2019-02-03] MEDS: ATORVASTATIN CALCIUM 80 MG TABLET PO SCH (21:26)
--- NOTE | 2019-02-03 21:53 | RADIOLOGY REPORT (SQ) ---
US ABDOMEN EXAM DATE: 02/03/2019 12:00 AM CDT HISTORY: Abdominal pain . COMPARISON: None. TECHNIQUE: Grayscale and color Doppler imaging of the abdomen was performed. FINDINGS: The liver has normal echotexture without focal lesion identified. The main portal vein has normal hepatopetal flow. No shadowing gallstones are seen. No pericholecystic fluid or gallbladder wall thickening. The common bile duct measures 1 cm. The pancreas is unremarkable. The spleen is normal in size. No hydronephrosis or shadowing renal stones are identified. The right kidney measures 9.3 cm and the left kidney measures 9.2 cm in length. There is a 1.6 cm anechoic cyst in the interpolar left kidney. The visualized portions of the IVC and aorta are patent. IMPRESSION: No acute abdominal findings.
[2019-02-04] MEDS: IPRATROPIUM/ALBUTEROL 0.5-2.5 MG/3 ML AMPUL NEB PRN ×2 (08:19→21:06)
--- NOTE | 2019-02-04 09:56 | PDOC PROGRESS REPORT ---
Subjective Progress Note for:: 02/04/19 Subjective:: Patient was admitted for the acute left-sided prominent strokes Patient have issue with the vomiting after eating the food but currently denied any symptoms since yesterday Patient ultrasound is negative for any acute finding Patient is denied any abdominal pain No nausea No other symptoms Reason For Visit: CVA Physical Exam Vital Signs: Temp Pulse Resp BP Pulse Ox 97.6 F 57 L 18 152/52 H 94 02/04/19 08:11 02/04/19 08:21 02/04/19 08:21 02/04/19 08:11 02/04/19 08:21 Intake & Output 02/03/19 02/04/19 02/05/19 06:59 06:59 06:59 Intake Total 1754 542 Balance 1754 542 Weight 53.7 kg 54.9 kg General appearance: PRESENT: no acute distress, well-developed, well-nourished Head exam: PRESENT: atraumatic, normocephalic Eye exam: PRESENT: conjunctiva pink, EOMI, PERRLA. ABSENT: scleral icterus Ear exam: PRESENT: normal external ear exam Mouth exam: PRESENT: moist, tongue midline Neck exam: PRESENT: full ROM. ABSENT: carotid bruit, JVD, lymphadenopathy, thyromegaly Respiratory exam: PRESENT: clear to auscultation tatianna Cardiovascular exam: PRESENT: RRR. ABSENT: diastolic murmur, rubs, systolic murmur Vascular exam: PRESENT: normal capillary refill GI/Abdominal exam: PRESENT: normal bowel sounds, soft. ABSENT: distended, guarding, mass, organolmegaly, rebound, tenderness Rectal exam: PRESENT: deferred Extremities exam: ABSENT: pedal edema Neurological exam: PRESENT: alert, awake, oriented to person, oriented to place, oriented to time, oriented to situation, CN II-XII grossly intact. ABSENT: motor sensory deficit Psychiatric exam: PRESENT: appropriate affect, normal mood. ABSENT: homicidal ideation, suicidal ideation Skin exam: PRESENT: dry, intact, warm. ABSENT: cyanosis, rash Results Laboratory Results: 02/01/19 11:40 02/01/19 11:40 02/01/19 02/01/19 02/01/19 11:40 11:40 18:21 Creatine Kinase 176 H 130 CK-MB (CK-2) 2.10 Troponin I < 0.012 02/01/19 02/02/19 02/02/19 18:21 00:23 00:23 Creatine Kinase 172 H CK-MB (CK-2) 1.36 2.03 Troponin I < 0.012 < 0.012 02/02/19 02/02/19 06:08 06:08 Creatine Kinase 235 H CK-MB (CK-2) 3.00 Troponin I < 0.012 Impressions: Chest X-Ray 02/01/19 11:21 IMPRESSION: NO ACUTE RADIOGRAPHIC FINDING IN THE CHEST. Head CT 02/01/19 11:21 IMPRESSION: NORMAL BRAIN CT WITHOUT CONTRAST. EVIDENCE OF ACUTE STROKE: NO. Carotid Doppler Study 02/01/19 12:04 IMPRESSION: NO HEMODYNAMICALLY SIGNIFICANT STENOSIS. Head MRI 02/01/19 12:04 IMPRESSION: There is a small acute diffusion restricting infarction of the left medial pete (series 4, image 7). EVIDENCE OF ACUTE STROKE: YES. Findings reported by the [facility] critical findings notification system at the time of interpretation. Abdomen Ultrasound 02/03/19 00:00 IMPRESSION: No acute abdominal findings. Assessment & Plan - Diagnosis (1) Acute CVA (cerebrovascular accident) Is this a current diagnosis for this admission?: Yes Plan: It waiting to do go to the rehab facilities (2) COPD with acute exacerbation Is this a current diagnosis for this admission?: Yes Plan: Continue some nebulizer treatments (3) Vomiting Qualifiers: Vomiting type: unspecified Vomiting Intractability: non-intractable Nausea presence: without nausea Qualified Code(s): R11.11 - Vomiting without nausea Is this a current diagnosis for this admission?: Yes Plan: Ultrasound is negative Patient is denied any vomiting anymore Continues to PPI (4) Cigarette nicotine dependence Qualifiers: Substance use status: unspecified nicotine-induced disorder Qualified Code(s): F17.219 - Nicotine dependence, cigarettes, with unspecified nicotine- induced disorders Is this a current diagnosis for this admission?: Yes Plan: Continues to nicotine patch - Time Time Spent with patient: 15-24 minutes Medications reviewed and adjusted accordingly: Yes Anticipated discharge: SNF Within: Other - Plan Summary Plan Summary: Continues to current medications discussed with the nursing staff no other concerns
[2019-02-04] MEDS: ENOXAPARIN SODIUM INJ 40 MG/0.4 ML DISP.SYRIN SUBCUT SCH (10:46)
[2019-02-04] MEDS: NICOTINE 21 MG/24 HR PATCH.TD24 TD SCH (10:46)
[2019-02-04] MEDS: ASPIRIN/DIPYRIDAMOLE 25-200 MG 1 CAP.SR CPMP.12HR PO SCH (10:48)
[2019-02-04] MEDS: DOCUSATE SODIUM 100 MG CAPSULE PO SCH (10:48)
[2019-02-04] MEDS: OXYCODONE-ACETAMINOPHEN 5-325 MG TABLET PO PRN (10:51)
[2019-02-04] MEDS: OXYCODONE HCL IR 5 MG TABLET PO PRN (10:51)
[2019-02-04] MEDS: POLYETHYLENE GLYCOL 3350 POWDER 17 GM/1 PACKET PO SCH (10:52)
[2019-02-04] MEDS: ONDANSETRON HCL INJ/PF 4 MG/2 ML SDV IV PRN (12:47)
[2019-02-04] MEDS: PANTOPRAZOLE SODIUM 40 MG TABLET.DR PO SCH (17:42)
[2019-02-04] MEDS: ATORVASTATIN CALCIUM 80 MG TABLET PO SCH (22:07)
[2019-02-05] MEDS: PANTOPRAZOLE SODIUM 40 MG TABLET.DR PO SCH ×2 (05:12→16:00)
[2019-02-05 05:35] LABS: ABSOLUTE EOSINOPHILS # (AUTO) 0.3 10^3/uL (0.0-0.6); ABSOLUTE LYMPHOCYTES (AUTO) 2.1 10^3/uL (0.5-4.7); ABSOLUTE MONOCYTES (AUTO) 0.4 10^3/uL (0.1-1.4); ABSOLUTE NEUT (AUTO) 4.1 10^3/uL (1.7-8.2); BASOPHILS % (AUTO) 0.4 % (0-2); EOSINOPHILS % (AUTO) 3.7 % (0-6); HEMATOCRIT 37.9 % (37.9-51.0); LYMPHOCYTES % (AUTO) 30.4 % (13-45); MEAN CORPUSCULAR HEMOGLOBIN 29.8 pg (27.0-33.4); MEAN CORPUSCULAR HGB CONC 34.3 g/dL (32.0-36.0); MEAN CORPUSCULAR VOLUME 87 fl (80-97); MONOCYTES % (AUTO) 6.2 % (3-13); PLATELET COUNT 174 10^3/uL (150-450); RED BLOOD COUNT 4.36 10^6/uL (4.35-5.55); RED CELL DISTRIBUTION WIDTH 15.3 % (11.5-14.0); SEGMENTED NEUTROPHILS % (AUTO) 59.3 % (42-78); TOTAL CELLS COUNTED % (AUTO) 100 %; WHITE BLOOD COUNT 6.8 10^3/uL (4.0-10.5)
[2019-02-05 05:57] LABS: ANION GAP 6 (5-19); BLOOD UREA NITROGEN 22 mg/dL (7-20); CALCIUM 8.8 mg/dL (8.4-10.2); CARBON DIOXIDE 27 mmol/L (22-30); CHLORIDE 106 mmol/L (98-107); GLUCOSE 103 mg/dL (75-110); POTASSIUM 4.1 mmol/L (3.6-5.0); SODIUM 138.5 mmol/L (137-145)
--- NOTE | 2019-02-05 09:35 | PDOC PROGRESS REPORT ---
Subjective Progress Note for:: 02/05/19 Subjective:: Patient is currently doing fair Patient still have episode of the vomited x1 schedule upper GI series Denied any chest pain to than any shortness of the breath Reason For Visit: CVA Physical Exam Vital Signs: Temp Pulse Resp BP Pulse Ox 97.9 F 59 L 16 141/65 H 95 02/05/19 07:42 02/05/19 07:42 02/05/19 07:42 02/05/19 07:42 02/05/19 07:42 Intake & Output 02/04/19 02/05/19 02/06/19 06:59 06:59 06:59 Intake Total 542 822 Balance 542 822 Weight 54.9 kg 54.9 kg General appearance: PRESENT: no acute distress, well-developed, well-nourished Head exam: PRESENT: atraumatic, normocephalic Eye exam: PRESENT: conjunctiva pink, EOMI, PERRLA. ABSENT: scleral icterus Ear exam: PRESENT: normal external ear exam Mouth exam: PRESENT: moist, tongue midline Neck exam: PRESENT: full ROM. ABSENT: carotid bruit, JVD, lymphadenopathy, thyromegaly Respiratory exam: PRESENT: clear to auscultation tatianna Cardiovascular exam: PRESENT: RRR. ABSENT: diastolic murmur, rubs, systolic murmur Vascular exam: PRESENT: normal capillary refill GI/Abdominal exam: PRESENT: normal bowel sounds, soft. ABSENT: distended, guarding, mass, organolmegaly, rebound, tenderness Rectal exam: PRESENT: deferred Extremities exam: ABSENT: pedal edema Musculoskeletal exam: PRESENT: ambulatory Neurological exam: PRESENT: alert, awake, oriented to person, oriented to place, oriented to time, oriented to situation, CN II-XII grossly intact. ABSENT: motor sensory deficit Psychiatric exam: PRESENT: appropriate affect, normal mood. ABSENT: homicidal ideation, suicidal ideation Skin exam: PRESENT: dry, intact, warm. ABSENT: cyanosis, rash Results Laboratory Results: 02/05/19 04:49 02/05/19 04:49 02/05/19 02/05/19 04:49 04:49 WBC 6.8 RBC 4.36 Hgb 13.0 L Hct 37.9 MCV 87 MCH 29.8 MCHC 34.3 RDW 15.3 H Plt Count 174 Seg Neutrophils % 59.3 Lymphocytes % 30.4 Monocytes % 6.2 Eosinophils % 3.7 Basophils % 0.4 Absolute Neutrophils 4.1 Absolute Lymphocytes 2.1 Absolute Monocytes 0.4 Absolute Eosinophils 0.3 Absolute Basophils 0.0 Sodium 138.5 Potassium 4.1 Chloride 106 Carbon Dioxide 27 Anion Gap 6 BUN 22 H Creatinine 1.26 H Est GFR ( Amer) > 60 Est GFR (Non-Af Amer) 57 L Glucose 103 Calcium 8.8 02/01/19 02/01/19 02/01/19 11:40 11:40 18:21 Creatine Kinase 176 H 130 CK-MB (CK-2) 2.10 Troponin I < 0.012 02/01/19 02/02/19 02/02/19 18:21 00:23 00:23 Creatine Kinase 172 H CK-MB (CK-2) 1.36 2.03 Troponin I < 0.012 < 0.012 02/02/19 02/02/19 06:08 06:08 Creatine Kinase 235 H CK-MB (CK-2) 3.00 Troponin I < 0.012 Impressions: Chest X-Ray 02/01/19 11:21 IMPRESSION: NO ACUTE RADIOGRAPHIC FINDING IN THE CHEST. Head CT 02/01/19 11:21 IMPRESSION: NORMAL BRAIN CT WITHOUT CONTRAST. EVIDENCE OF ACUTE STROKE: NO. Carotid Doppler Study 02/01/19 12:04 IMPRESSION: NO HEMODYNAMICALLY SIGNIFICANT STENOSIS. Head MRI 02/01/19 12:04 IMPRESSION: There is a small acute diffusion restricting infarction of the left medial pete (series 4, image 7). EVIDENCE OF ACUTE STROKE: YES. Findings reported by the [facility] critical findings notification system at the time of interpretation. Abdomen Ultrasound 02/03/19 00:00 IMPRESSION: No acute abdominal findings. Assessment & Plan - Diagnosis (1) Acute CVA (cerebrovascular accident) Is this a current diagnosis for this admission?: Yes Plan: It waiting to do go to the rehab facilities (2) COPD with acute exacerbation Is this a current diagnosis for this admission?: Yes Plan: Continue some nebulizer treatments (3) Vomiting Qualifiers: Vomiting type: unspecified Vomiting Intractability: non-intractable Nausea presence: without nausea Qualified Code(s): R11.11 - Vomiting without nausea Is this a current diagnosis for this admission?: Yes Plan: schd with upper GI series (4) Cigarette nicotine dependence Qualifiers: Substance use status: unspecified nicotine-induced disorder Qualified Code(s): F17.219 - Nicotine dependence, cigarettes, with unspecified nicotine-induced disorders Is this a current diagnosis for this admission?: Yes - Time Time Spent with patient: 15-24 minutes Medications reviewed and adjusted accordingly: Yes Anticipated discharge: Home, SNF Within: Other - Plan Summary Plan Summary: Continues to current medication
--- NOTE | 2019-02-05 14:35 | XCELERA REPORT ---
[address] [address] Transthoracic Echocardiogram Report Name: HUSSEIN LEON Age: 68 yrs Gender: Male : 1950 Patient Status: Inpatient Patient Location: [address] [place], [place] [id number] Study Date: 02/02/2019 10:41 AM Height: 66 in Weight: 118 lb BSA: 1.6 m2 Procedure: A two-dimensional transthoracic echocardiogram with color flow and Doppler was performed. Images were not obtained from all of the standard acoustic windows due to the limited scope of the study. Reason For Study: cva History: CVA. Ordering Physician: LARY LOOMIS Performed By: Chela Mcgill Interpretation Summary There is no obvious cardiac source of embolus noted on this transthoracic echocardiogram. Follow-up with a [facility] is suggested if cardiac source is still suspected. The left ventricle is normal in size. There is normal left ventricular wall thickness. No True apical 2 chamber views obtained.Hence cannot comment on the apical anterior , the basal anterior, the basal inferior and apical inferior stanley.The mid anterior , the mid inferior and the rest of the LV stanley contract normally. .Normal LVEF is normal and is greater than 65% in the limited views. Doppler measurements suggest impaired left ventricular relaxation, which is associated with grade I/IV or mild diastolic dysfunction There is no thrombus. No ASD,VSD ,or PFO seen. The right ventricle is grossly normal size. The right ventricular systolic function is normal. The right atrium is normal. The left atrial size is normal. There is no evidence of mitral valve prolapse. There is no vegetation seen on the mitral valve. There is no mitral regurgitation noted. There is no aortic valvular vegetation. There is no aortic valve stenosis There is no LVOT obstruction. No aortic regurgitation is present. There is no tricuspid stenosis. No tricuspid regurgitation. Unable to calculate RVSp due to lack of TR jet. There is no pulmonic valvular stenosis. There is no pulmonic valvular regurgitation. There is no pericardial effusion. There is no obvious cardiac source of embolus noted on this transthoracic echocardiogram. Follow-up with a [facility] is suggested if cardiac source is still suspected MMode/2D Measurements & Calculations RVDd: 3.0 cm LVIDd: 3.7 cm FS: 40.4 % Ao root diam: 3.1 cm IVSd: 1.0 cm LVIDs: 2.2 cm EDV(Teich): 59.0 ml Ao root area: 7.5 cm2 LVPWd: 0.98 cm ESV(Teich): 16.5 ml LA dimension: 2.9 cm EF(Teich): 72.0 % Doppler Measurements & Calculations MV E max yareli: MV P1/2t max yareli: Ao V2 max: LV V1 max P.8 cm/sec 54.2 cm/sec 105.6 cm/sec 3.3 mmHg MV A max yareli: MV P1/2t: 93.0 msec Ao max PG: LV V1 max: 57.6 cm/sec MVA(P1/2t): 2.4 cm2 4.5 mmHg 91.3 cm/sec MV E/A: 0.95 MV dec slope: 170.6 cm/sec2 MV dec time: 0.33 sec PA V2 max: MV P1/2t-pr_phl: 89.5 cm/sec 93.0 msec PA max P.2 mmHg Left Ventricle The left ventricle is normal in size. There is normal left ventricular wall thickness. No True apical 2 chamber views obtained.Hence cannot comment on the apical anterior , the basal anterior, the basal inferior and apical inferior stanley.The mid anterior , the mid inferior and the rest of the LV stanley contract normally. .Normal LVEF is normal and is greater than 65% in the limited views. Doppler measurements suggest impaired left ventricular relaxation, which is associated with grade I/IV or mild diastolic dysfunction. There is no thrombus. No ASD,VSD ,or PFO seen. Right Ventricle The right ventricle is grossly normal size. The right ventricular systolic function is normal. Atria The right atrium is normal. The left atrial size is normal. Mitral Valve There is no evidence of mitral valve prolapse. There is no vegetation seen on the mitral valve. There is no mitral valve stenosis. There is no mitral regurgitation noted. Aortic Valve There is no aortic valvular vegetation. There is no aortic valve stenosis. There is no LVOT obstruction. No aortic regurgitation is present. Tricuspid Valve There is no tricuspid stenosis. No tricuspid regurgitation. Unable to calculate RVSp due to lack of TR jet. Pulmonic Valve There is no pulmonic valvular stenosis. There is no pulmonic valvular regurgitation. Great Vessels The aortic root is normal size. Effusions There is no pericardial effusion. : LARY LOOMIS > Angélica Garcia
--- NOTE | 2019-02-05 15:01 | RADIOLOGY REPORT (SQ) ---
EXAM DESCRIPTION: UPPER GI/SM BOWEL COMPLETED DATE/TIME: 02/05/2019 2:49 pm REASON FOR STUDY: epigastric pain epigastric pain vomiting COMPARISON: Upper GI 10/14/2017 TECHNIQUE: Under fluoroscopic guidance, patient ingested effervescent granules followed by thick and thin barium. Fluoroscopic spot images and routine radiographic images acquired and stored on PACS. 12 MM BARIUM TABLET GIVEN: No. Not given LIMITATIONS: None. FLUOROSCOPY TIME: FLUORO TIME: 4.5 minutes of fluoroscopy used. 27 images saved to PACS. FINDINGS: NEUROMUSCULAR COORDINATION OF SWALLOW: Normal. No aspiration. Mild cricopharyngeal hyper trophy. ESOPHAGEAL MOTILITY: Normal peristalsis. No esophageal spasm. ESOPHAGEAL MUCOSA: Normal mucosa without masses or ulceration. GASTRO-ESOPHAGEAL JUNCTION: Small sliding hiatal hernia without reflux. STOMACH: Normal without masses or ulcerations. GASTRIC OUTLET: No delay in emptying. Normal pylorus. DUODENAL BULB: Normal distention. No spasm or ulceration. DUODENUM: Mucosa normal. No extrinsic masses or malrotation. PROXIMAL SMALL BOWEL: Mucosa normal. No extrinsic masses or malrotation. NON-GI TRACT STRUCTURES: No significant finding. OTHER: Transit time is normal with contrast seen within the cecum and ascending colon on the 1 hour f ilm. IMPRESSION: SMALL SLIDING HIATAL HERNIA. OTHERWISE UNREMARKABLE UPPER GI - SMALL BOWEL FOLLOW-THROU . COMMENT: Quality ID [id number]: Final reports for procedures using fluoroscopy that document radiation exp osure indices, or exposure time and number of fluorographic images (if radiation exposure indices are not available) TECHNICAL DOCUMENTATION: JOB ID: [id number] [employer]- All Rights Reserved Reading location - IP/workstation name: [email or web address] [id number]
[2019-02-05] MEDS: ASPIRIN/DIPYRIDAMOLE 25-200 MG 1 CAP.SR CPMP.12HR PO SCH (15:57)
[2019-02-05] MEDS: NICOTINE 21 MG/24 HR PATCH.TD24 TD SCH (15:57)
[2019-02-05] MEDS: ENOXAPARIN SODIUM INJ 40 MG/0.4 ML DISP.SYRIN SUBCUT SCH (15:57)
[2019-02-05] MEDS: POLYETHYLENE GLYCOL 3350 POWDER 17 GM/1 PACKET PO SCH (15:57)
[2019-02-05] MEDS: DOCUSATE SODIUM 100 MG CAPSULE PO SCH (15:58)
[2019-02-05] MEDS: IPRATROPIUM/ALBUTEROL 0.5-2.5 MG/3 ML AMPUL NEB PRN (16:49)
[2019-02-05] MEDS: OXYCODONE-ACETAMINOPHEN 5-325 MG TABLET PO PRN (20:35)
[2019-02-05] MEDS: OXYCODONE HCL IR 5 MG TABLET PO PRN (20:36)
[2019-02-05] MEDS: ATORVASTATIN CALCIUM 80 MG TABLET PO SCH (21:25)
[2019-02-06] MEDS: PANTOPRAZOLE SODIUM 40 MG TABLET.DR PO SCH ×2 (05:39→16:23)
[2019-02-06] MEDS: OXYCODONE HCL IR 5 MG TABLET PO PRN ×2 (05:39→14:29)
[2019-02-06] MEDS: OXYCODONE-ACETAMINOPHEN 5-325 MG TABLET PO PRN ×2 (05:39→14:29)
[2019-02-06 07:00] LABS: ANION GAP 10 (5-19); BLOOD UREA NITROGEN 25 mg/dL (7-20); CALCIUM 8.6 mg/dL (8.4-10.2); CARBON DIOXIDE 24 mmol/L (22-30); CHLORIDE 103 mmol/L (98-107); GLUCOSE 144 mg/dL (75-110); POTASSIUM 4.3 mmol/L (3.6-5.0); SODIUM 136.8 mmol/L (137-145)
[2019-02-06] MEDS ORDERED: HYDROXYZINE PAMOATE 25 MG CAPSULE PO PRN (08:42)
[2019-02-06] MEDS: NICOTINE 21 MG/24 HR PATCH.TD24 TD SCH (09:31)
[2019-02-06] MEDS: POLYETHYLENE GLYCOL 3350 POWDER 17 GM/1 PACKET PO SCH (09:31)
[2019-02-06] MEDS: ASPIRIN/DIPYRIDAMOLE 25-200 MG 1 CAP.SR CPMP.12HR PO SCH (09:31)
[2019-02-06] MEDS: ENOXAPARIN SODIUM INJ 40 MG/0.4 ML DISP.SYRIN SUBCUT SCH (09:31)
[2019-02-06] MEDS: DOCUSATE SODIUM 100 MG CAPSULE PO SCH (09:31)
[2019-02-06] MEDS: IPRATROPIUM/ALBUTEROL 0.5-2.5 MG/3 ML AMPUL NEB PRN (13:00)
[2019-02-06 17:38] VITALS: BP 147/61
--- NOTE | 2019-02-06 19:01 | PDOC DISCHARGE SUMMARY ---
General - Admit/Disc Date/PCP Admission Date/Primary Care Provider: 02/01/19 12:32 LARY LOOMIS MD Discharge Date: 02/06/19 - Discharge Diagnosis (1) Acute CVA (cerebrovascular accident) Is this a current diagnosis for this admission?: Yes (2) Left pontine CVA Is this a current diagnosis for this admission?: Yes (3) COPD with acute exacerbation Is this a current diagnosis for this admission?: Yes (4) Vomiting Is this a current diagnosis for this admission?: Yes (5) Hemiplegia affecting right dominant side Is this a current diagnosis for this admission?: Yes - Additional Information Resuscitation Status: Full Code Discharge Diet: As Tolerated Discharge Activity: Activity As Tolerated, Balance Activity w/Rest Prescriptions: Atorvastatin Calcium [Lipitor 80 mg Tablet] 80 mg PO QHS #90 tablet Aspirin/Dipyridamole [Aggrenox 25 mg/200 mg Capsule SA] 1 cap.sr PO Q12 #180 cpmp.12hr Home Medications: Albuterol Sulfate [Proair HFA Inhalation Aerosol 8.5 gm MDI] 2 puff IH QIDP PRN 02/01/19 Diazepam [Valium 5 mg Tablet] 5 mg PO HSP PRN 02/01/19 Gabapentin Enacarbil [Horizant] 600 mg PO DAILY 02/01/19 Hydroxyzine HCl [Atarax 25 mg Tablet] 1 tab PO HSP PRN 02/01/19 Ipratropium/Albuterol Sulfate [Duoneb 3 ml Ampul] 3 ml NEB RTQIDP PRN 02/01/19 Oxycodone HCl/Acetaminophen [Percocet 10-325 mg Tablet] 1 each PO QIDP PRN 02/01/19 Aspirin/Dipyridamole [Aggrenox 25 mg/200 mg Capsule SA] 1 cap.sr PO Q12 #180 cpmp.12hr 02/06/19 Atorvastatin Calcium [Lipitor 80 mg Tablet] 80 mg PO QHS #90 tablet 02/06/19 History of Present Illness History of Present Illness: HUSSEIN LEON is a 68 year old male, He came to the emergency room for evaluati on of acute onset left-sided weakness, slurred speech within the last 3 hours, CAT scan of the head was done it was negative for any acute cerebral infarction.Patient was within the 3-hour window for the administration of TPA but he declined that option, subsequent MRI brain that was done demonstrated small acute infarction of the left medial pete Hospital Course Hospital Course: Patient was admitted for the management of CVA with right-sided hemiparesis,He was managed according to stroke protocol carotid Doppler negative, 2D echo was done no significant findings. He had episode of vomiting in the hospital upper GI series was done, ultrasound of the gallbladder was done on negative, he has a history of tobacco dependence, he required nicotine patch the hospital Physical Exam Vital Signs: Temp Pulse Resp BP Pulse Ox 97.7 F 69 20 147/61 H 98 02/06/19 17:35 02/06/19 17:35 02/06/19 17:35 02/06/19 17:35 02/06/19 17:35 Intake & Output 02/05/19 02/06/19 02/07/19 06:59 06:59 06:59 Intake Total 822 660 300 Balance 822 660 300 Weight 54.9 kg 54.7 kg General appearance: PRESENT: no acute distress Head exam: PRESENT: atraumatic, normocephalic Eye exam: PRESENT: PERRLA Ear exam: PRESENT: normal external ear exam Mouth exam: PRESENT: moist, tongue midline Neck exam: PRESENT: full ROM Respiratory exam: PRESENT: clear to auscultation tatianna Cardiovascular exam: PRESENT: RRR, +S1, +S2 Vascular exam: PRESENT: normal capillary refill Rectal exam: PRESENT: deferred Neurological exam: PRESENT: alert, motor sensory deficit Skin exam: PRESENT: dry, intact, warm Results Laboratory Results: 02/05/19 04:49 02/06/19 06:29 02/06/19 06:29 Sodium 136.8 L Potassium 4.3 Chloride 103 Carbon Dioxide 24 Anion Gap 10 BUN 25 H Creatinine 1.20 Est GFR ( Amer) > 60 Est GFR (Non-Af Amer) > 60 Glucose 144 H Calcium 8.6 02/01/19 02/01/19 02/01/19 11:40 11:40 18:21 Creatine Kinase 176 H 130 CK-MB (CK-2) 2.10 Troponin I < 0.012 02/01/19 02/02/19 02/02/19 18:21 00:23 00:23 Creatine Kinase 172 H CK-MB (CK-2) 1.36 2.03 Troponin I < 0.012 < 0.012 02/02/19 02/02/19 06:08 06:08 Creatine Kinase 235 H CK-MB (CK-2) 3.00 Troponin I < 0.012 Impressions: Chest X-Ray 02/01/19 11:21 IMPRESSION: NO ACUTE RADIOGRAPHIC FINDING IN THE CHEST. Head CT 02/01/19 11:21 IMPRESSION: NORMAL BRAIN CT WITHOUT CONTRAST. EVIDENCE OF ACUTE STROKE: NO. Carotid Doppler Study 02/01/19 12:04 IMPRESSION: NO HEMODYNAMICALLY SIGNIFICANT STENOSIS. Head MRI 02/01/19 12:04 IMPRESSION: There is a small acute diffusion restricting infarction of the left medial pete (series 4, image 7). EVIDENCE OF ACUTE STROKE: YES. Findings reported by the [facility] critical findings notification system at the time of interpretation. Abdomen Ultrasound 02/03/19 00:00 IMPRESSION: No acute abdominal findings. Upper GI and Small Bowel X-Ray 02/05/19 07:00 IMPRESSION: SMALL SLIDING HIATAL HERNIA. OTHERWISE UNREMARKABLE UPPER GI - SMALL BOWEL FOLLOW-THROUGH. Qualifiers - * PATIENT BEING DISCHARGED WITH ANY OF THE FOLLOWING DIAGNOSIS: Stroke VTE patient discharged on overlapping Therapy?: No Stroke Pt being discharged on Anti-thrombolytic therapy?: No Reason(s) for not prescribing Anti-thrombolytic therapy:: Not indicated Stroke Pt being discharged on Anti-coagulation therapy?: Yes Stroke Pt being discharged on Statins?: Yes NE Pt being discharged on Aspirin therapy?: No Reason(s) for not prescribing Aspirin therapy:: Not indicated NE Pt being discharged on Statins?: No Reason(s) for not prescribing Statin therapy:: Not indicated NE Pt discharged ACEI/ARBS?: No Reason(s) for not prescribing ACEI/ARBS:: Not indicated Acute Heart Failure - Is this a Heart Failure Patient?: No e) For LVEF <35%, discharged on Aldosterone antagonist?: N/A (LVEF > or = 35%)
== END 2019-02-06 17:46 | disposition home or self-care (01) | DRG 65 ==
LOC: ER 11:20 → EH 12:32 → 3N 18:40
PROVIDERS: ADMIT Internal Medicine; ATTEND Internal Medicine
DX: I63.19 Cerebral infarction due to embolism of other precerebral artery (principal); G81.91 Hemiplegia, unspecified affecting right dominant side; J44.1 Chronic obstructive pulmonary disease with (acute) exacerbation; Z53.29 Procedure and treatment not carried out because of patient's decision for other reasons; R29.704 NIHSS score 4; I10 Essential (primary) hypertension; M19.90 Unspecified osteoarthritis, unspecified site; I16.0 Hypertensive urgency; F17.210 Nicotine dependence, cigarettes, uncomplicated; R47.81 Slurred speech; R29.810 Facial weakness; R40.2362 Coma scale, best motor response, obeys commands, at arrival to emergency department; R40.2142 Coma scale, eyes open, spontaneous, at arrival to emergency department; R40.2252 Coma scale, best verbal response, oriented, at arrival to emergency department
CPT/HCPCS: 36415; 70450; 70551; 71045; 74249; 76700; 80048; 80053; 82550; 82553; 82962; 84484; 85025; 85610; 85730; 93005; 93010; 93306; 93880; 94640; 99291; J1650; J2405; J3490; J7620

== ENCOUNTER 2019-03-20 16:12 | Inpatient (IN) | payer MEDICARE, MEDICAID ==
--- NOTE | 2019-03-20 16:36 | ER Document Report ---
ED Medical Screen (RME) - General Chief Complaint: Numbness of Arm Stated Complaint: NUMBNESS Time Seen by Provider: 03/20/19 16:27 Primary Care Provider: LARY LOOMIS MD [Primary Care Provider] - Follow up as needed Notes: Patient is a 68-year-old male with a history of CVA, TIA, COPD and acid reflux who presents to the emergency department with chief complaint of right hand numbness. Patient states he woke up around 830 this morning and had numbness to his right hand and right lower extremity. Patient states he just had a stroke back in December or January in which he had residual weakness in the right hand and right leg. Patient reports he normally does have slurred speech but family member in triage states the speech was more slurred than normal. Patient also reports this morning had an episode of chest tightness. Patient did report having some shortness of breath but did take a breathing treatment prior to arrival with some relief. Patient denies headache or dizziness. TRAVEL OUTSIDE OF THE [place] IN LAST 30 DAYS: No - Related Data Allergies/Adverse Reactions: No Known Allergies Allergy (Verified 03/20/19 16:13) Past Medical History - Social History Frequency of alcohol use: None Drug Abuse: None - Past Medical History Cardiac Medical History: Reports: Hx Hypertension Denies: Hx Coronary Artery Disease, Hx Heart Attack Pulmonary Medical History: Reports: Hx COPD Denies: Hx Asthma, Hx Bronchitis, Hx Pneumonia, Hx Tuberculosis Neurological Medical History: Denies: Hx Cerebrovascular Accident - hx 6 months ago left side weakness lasted about 10 min, Hx Seizures Renal/ Medical History: Denies: Hx Peritoneal Dialysis Musculoskeltal Medical History: Reports Hx Arthritis Psychiatric Medical History: Reports: Hx Depression Past Surgical History: Reports: Hx Appendectomy - Immunizations Immunizations up to date: Yes Hx Diphtheria, Pertussis, Tetanus Vaccination: Yes History of Influenza Vaccine for 04/2017 - 09/2017 Season: No Physical Exam - Vital signs Vitals: Temp Pulse Resp BP Pulse Ox 98.1 F 68 22 H 203/87 H 98 03/20/19 16:18 03/20/19 16:18 03/20/19 16:18 03/20/19 16:18 03/20/19 16:18 - Neurological Neuro grossly intact: Yes Cognition: Normal Orientation: AAOx4 Pat Coma Scale Eye Opening: Spontaneous Pat Coma Scale Verbal: Oriented [place] Coma Scale Motor: Obeys Commands Pat Coma Scale Total: 15 Speech: Normal Cranial nerves: Normal Motor strength normal: RUE - RIGHT HAND CHILD MONITOR MORE WEAK THAN LEFT Course - Re-evaluation Re-evalutation: 03/20/19 16:36 I have greeted and performed a rapid initial assessment of this patient. A comprehensive ED assessment and evaluation of the patient, analysis of test results and completion of the medical decision making process will be conducted by additional ED providers. - Vital Signs Vital signs: Temp Pulse Resp BP Pulse Ox 98.1 F 68 22 H 192/74 H 98 03/20/19 16:18 03/20/19 16:18 03/20/19 16:18 03/20/19 16:21 03/20/19 16:18 Doctor's Discharge - Discharge Referrals: LARY LOOMIS MD [Primary Care Provider] - Follow up as needed
[2019-03-20 16:54] LABS: ABSOLUTE BASOPHILS # (AUTO) 0.1 10^3/uL (0.0-0.2); ABSOLUTE EOSINOPHILS # (AUTO) 0.6 10^3/uL (0.0-0.6); ABSOLUTE LYMPHOCYTES (AUTO) 2.6 10^3/uL (0.5-4.7); ABSOLUTE MONOCYTES (AUTO) 0.5 10^3/uL (0.1-1.4); ABSOLUTE NEUT (AUTO) 3.1 10^3/uL (1.7-8.2); BASOPHILS % (AUTO) 0.7 % (0-2); EOSINOPHILS % (AUTO) 8.5 % (0-6); HEMATOCRIT 40.6 % (37.9-51.0); HEMOGLOBIN 13.8 g/dL (13.5-17.0); LYMPHOCYTES % (AUTO) 37.6 % (13-45); MEAN CORPUSCULAR HEMOGLOBIN 29.8 pg (27.0-33.4); MEAN CORPUSCULAR VOLUME 88 fl (80-97); MONOCYTES % (AUTO) 7.8 % (3-13); PLATELET COUNT 197 10^3/uL (150-450); RED BLOOD COUNT 4.63 10^6/uL (4.35-5.55); RED CELL DISTRIBUTION WIDTH 14.8 % (11.5-14.0); SEGMENTED NEUTROPHILS % (AUTO) 45.4 % (42-78); TOTAL CELLS COUNTED % (AUTO) 100 %; WHITE BLOOD COUNT 6.9 10^3/uL (4.0-10.5)
--- NOTE | 2019-03-20 17:06 | RADIOLOGY REPORT (SQ) ---
EXAM DESCRIPTION: CT HEAD WITHOUT COMPLETED DATE/TIME: 03/20/2019 4:56 pm REASON FOR STUDY: RIGHT HAND NUMBNESS COMPARISON: 02/01/2019 TECHNIQUE: Axial images acquired through the brain without intravenous contrast. Images reviewed wi th bone, brain and subdural windows. Additional sagittal and coronal reconstructions were generated. Images stored on PACS. All CT scanners at this facility use dose modulation, iterative reconstruction, and/or weight based d osing when appropriate to reduce radiation dose to as low as reasonably achievable (ALARA). [facility]: Dose Right [facility]: CareDose [facility]: Dose Right [facility]: Teradose 4D [facility]: Smart Oco RADIATION DOSE: CT Rad equipment meets quality standard of care and radiation dose reduction techniq ues were employed. CTDIvol: 53.2 mGy. DLP: 937 mGy-cm. mGy. LIMITATIONS: None. FINDINGS: VENTRICLES: Normal size and contour. CEREBRUM: No masses. No hemorrhage. No midline shift. No evidence for acute infarction. Normal gra y/white matter differentiation. No areas of low density in the white matter. CEREBELLUM: No masses. No hemorrhage. No alteration of density. No evidence for acute infarction. EXTRAAXIAL SPACES: No fluid collections. No masses. ORBITS AND GLOBE: No intra- or extraconal masses. Normal contour of globe without masses. CALVARIUM: No fracture. PARANASAL SINUSES: No fluid or mucosal thickening. SOFT TISSUES: No mass or hematoma. OTHER: No other significant finding. IMPRESSION: NORMAL BRAIN CT WITHOUT CONTRAST. EVIDENCE OF ACUTE STROKE: NO. COMMENT: Quality ID # [id number]: Final reports with documentation of one or more dose reduction techniques (e.g., Automated exposure control, adjustment of the mA and/or kV according to patient size, use of iterative reconstruction technique) TECHNICAL DOCUMENTATION: JOB ID: [id number] [employer]- All Rights Reserved Reading location - IP/workstation name: [email or web address]
--- NOTE | 2019-03-20 17:08 | RADIOLOGY REPORT (SQ) ---
EXAM DESCRIPTION: CHEST 2 VIEWS COMPLETED DATE/TIME: 03/20/2019 5:00 pm REASON FOR STUDY: CHEST TIGHTNESS, + SOB, HX. COPD COMPARISON: 02/01/2019 TECHNIQUE: Frontal and lateral radiographic views of the chest acquired. NUMBER OF VIEWS: Two view. LIMITATIONS: None. FINDINGS: LUNGS AND PLEURA: Mild vascular congestion with patchy perihilar opacity. Hyperinflated, COPD. No significant pleural fluid. MEDIASTINUM AND HILAR STRUCTURES: No masses or contour abnormalities. HEART AND VASCULAR STRUCTURES: Heart size normal. BONES: No acute findings. HARDWARE: None in the chest. OTHER: No other significant finding. IMPRESSION: COPD with mild perihilar infiltrates/edema. TECHNICAL DOCUMENTATION: JOB ID: [id number] [employer]- All Rights Reserved Reading location - IP/workstation name: [email or web address]
[2019-03-20 17:10] LABS: INTERNATIONAL RATION (INR) 1.09; PARTIAL THROMBOPLASTIN TIME 29.7 SEC (23.5-35.8); PROTHROMBIN TIME 14.1 SEC (11.4-15.4)
[2019-03-20 17:12] LABS: ALBUMIN 3.7 g/dL (3.5-5.0); ALKALINE PHOSPHATASE 73 U/L (38-126); ANION GAP 6 (5-19); ASPARTATE AMINO TRANSFERASE 22 U/L (17-59); BILIRUBIN,DIRECT 0.3 mg/dL (0.0-0.4); BILIRUBIN,TOTAL 0.4 mg/dL (0.2-1.3); BLOOD UREA NITROGEN 15 mg/dL (7-20); CALCIUM 9.1 mg/dL (8.4-10.2); CARBON DIOXIDE 26 mmol/L (22-30); CHLORIDE 108 mmol/L (98-107); GLUCOSE 100 mg/dL (75-110); POTASSIUM 4.2 mmol/L (3.6-5.0); TOTAL PROTEIN 6.4 g/dL (6.3-8.2)
[2019-03-20] MEDS ORDERED: NICARDIPINE HCL RTU, ISO-OS 20 MG/200 ML RTUINJ IV PRN ×2 (17:21→18:45)
--- NOTE | 2019-03-20 17:54 | ER Document Report ---
ED General - General Chief Complaint: Numbness of Arm Stated Complaint: NUMBNESS Time Seen by Provider: 03/20/19 16:27 Primary Care Provider: LARY LOOMIS MD [Primary Care Provider] - Follow up as needed TRAVEL OUTSIDE OF THE [place] IN LAST 30 DAYS: No - HPI Notes: Patient is a 68-year-old male who presents emergency department for evaluation of increased right-sided weakness, slurred speech. He has a history of a CVA back in January. At that point he developed the similar symptoms. He had refused TPA. This morning he woke and he had numbness on top of increased weakness, as well as significant dysarthria. His sister was unsuccessful in getting him to come into the emergency department until this afternoon. His dysarthria had improved, but he remained weak and with diminished sensation of the right upper and lower extremities. Patient states his been taking his medications as prescribed. He has no history of hypertension. Again he woke with the symptoms at about 6 this morning. He went to sleep at 10:00 last night without any symptoms at all. No recent head traumas. - Related Data Allergies/Adverse Reactions: No Known Allergies Allergy (Verified 03/20/19 16:13) Past Medical History - General Information source: Patient - Social History Smoking Status: Current Every Day Smoker Frequency of alcohol use: None Drug Abuse: None Family History: Reviewed & Not Pertinent, DM Patient has suicidal ideation: No Patient has homicidal ideation: No - Past Medical History Cardiac Medical History: Denies: Hx Coronary Artery Disease, Hx Heart Attack Pulmonary Medical History: Reports: Hx COPD Denies: Hx Asthma, Hx Bronchitis, Hx Pneumonia, Hx Tuberculosis Neurological Medical History: Reports: Hx Cerebrovascular Accident. Denies: Hx Seizures Renal/ Medical History: Denies: Hx Peritoneal Dialysis GI Medical History: Reports: Hx Gastroesophageal Reflux Disease Musculoskeletal Medical History: Reports Hx Arthritis Psychiatric Medical History: Reports: Hx Depression Past Surgical History: Reports: Hx Appendectomy - Immunizations Immunizations up to date: Yes Hx Diphtheria, Pertussis, Tetanus Vaccination: Yes Review of Systems - Review of Systems Constitutional: No symptoms reported EENT: No symptoms reported Cardiovascular: No symptoms reported Respiratory: No symptoms reported Gastrointestinal: No symptoms reported Genitourinary: No symptoms reported Musculoskeletal: No symptoms reported Skin: No symptoms reported Neurological/Psychological: No symptoms reported Physical Exam - Vital signs Vitals: Temp Pulse Resp BP Pulse Ox 98.1 F 68 22 H 203/87 H 98 03/20/19 16:18 03/20/19 16:18 03/20/19 16:18 03/20/19 16:18 03/20/19 16:18 - Notes Notes: Vital signs reviewed, please refer to chart. Head is normocephalic, atraumatic. Pupils equal round, reactive to light. Neck is supple without meningismus. Heart is regular rate and rhythm. Lungs reveal diminished breath sounds but no wheezes, rales, rhonchi. Abdomen is soft, nontender, normoactive bowel sounds throughout. Extremities without cyanosis, clubbing. Posterior calves are nontender. Peripheral pulses are equal. Skin is warm and dry. Patient is awake, alert, oriented x3. Patient does exhibit very mild dysarthria and a mild expressive aphasia, otherwise cranial nerves II - XII are grossly intact without focal neurological deficits. Strength is plus 5 out of 5 left upper and lower extremity plus 3 out of 5 strength right upper and lower extremity. He is hyperreflexive on the right at the patellar and biceps. Sensation is diminished to light touch and two-point discrimination on the right upper and lower extremities as well. Intact [id number], rapid alternating movements, [id number]. Course - Re-evaluation Re-evalutation: 03/20/19 17:55 Patient presents emergency department for evaluation. He has right-sided weakness and dysarthria. He does have a mild excessive aphasia initially as well. His symptoms are evolving. He certainly is outside of the TPA window given the fact that he woke with the symptoms. I am concerned, however, over this patient's elevated blood pressure. He does not have a history of hypertens ion. His heart rate is in the 60s. I am inclined to start a Cardene drip. CT scan of the head was found to show no acute process, and my strong suspicion is that this is secondary to hypertensive emergency. He started on a Cardene drip. Laboratory investigations are otherwise unremarkable. Chest x-ray showed findings consistent with COPD and potential infiltrates bilaterally, but he does not have a leukocytosis, cough, fever, or other symptoms consistent with pneumonia. I am not inclined to treat that at this time. I spoke with Dr. Escamilla, on-call for Dr. Loomis. He asked that MRI and MRA of the head be ordered, but will accept the patient to the ICU for further care. - Vital Signs Vital signs: Temp Pulse Resp BP Pulse Ox 98.1 F 68 22 H 192/74 H 98 03/20/19 16:18 03/20/19 16:18 03/20/19 16:18 03/20/19 16:21 03/20/19 16:18 - Laboratory Result Diagrams: 03/20/19 16:44 03/20/19 16:44 Laboratory results interpreted by me: 03/20/19 03/20/19 16:44 16:44 RDW 14.8 H Eos % (Auto) 8.5 H Chloride 108 H Est GFR (MDRD) Non-Af 58 L - Diagnostic Test Radiology reviewed: Reports reviewed Radiology results interpreted by me: 03/20/19 17:54 Chest X-Ray 03/20/19 16:33 IMPRESSION: COPD with mild perihilar infiltrates/edema. Head CT 03/20/19 16:33 IMPRESSION: NORMAL BRAIN CT WITHOUT CONTRAST. EVIDENCE OF ACUTE STROKE: NO. - EKG Interpretation by Me Additional EKG results interpreted by me: 03/20/19 17:55 Sinus mechanism with a rate of 64 bpm. Normal axis and intervals, no acute ST changes concerning for ischemia or infarction. No significant change in compared to prior study. Discharge - Discharge Clinical Impression: Hypertensive emergency without congestive heart failure Condition: Stable Disposition: ADMITTED INPATIENT Admitting Provider: Melonie Escamilla covering Unit Admitted: ICU Referrals: LARY LOOMIS MD [Primary Care Provider] - Follow up as needed
[2019-03-20] MEDS ORDERED: ACETAMINOPHEN 325 MG TABLET PO PRN (17:56)
--- NOTE | 2019-03-20 18:38 | PDOC H&P ---
History of Present Illness Admission Date/PCP: 03/20/19 18:20 LARY LOOMIS MD Patient complains of: Right-sided weakness slurred speech History of Present Illness: HUSSEIN LEON is a 68 year old male This is a 68-year-old patient of Dr. Loomis with a recent history of the acute CVA on January came to the emergency departments with the complaining of this morning 6:00 about right-sided hand and leg numbness and tingling and weakness compared to the previous stroke and also slurred speech. when he went to sleep last night no symptoms Patient came emergency department very late which out of the TPA window and patient is refused for the TPA in the past in the emergency department initial work-up with a CT of the head was negative other blood work is all stable patient's chest x-ray COPD some questionable infiltrate but patient is afebrile normal white count. Patient's speech is getting better tingling and numbness is still there but is improving weakness is also improving When I saw the patient's patients pretty much wants to go home very soon pat ients feel good In the emergency department patient's blood pressure was at 200 systolic range which is considered hypertensive urgency with possible strokelike symptoms and patient was put on a Cardene drip by the ER physicians and suggest to admit for further evaluations Patient's blood pressure was 166/133 in emergency department Patient is denied any headache denied any blurry vision denied any nausea no vomiting Patient still continues to smoke 5 to 6 cigarettes/day and patient smoked since last 50 years Patient have a echocardiogram and carotid Doppler done within the last couple of months was all stable Patient is currently on Aggrenox and statin and according to the patient is currently taking Past Medical History Cardiac Medical History: Denies: Coronary Artery Disease, Myocardial Infarction Pulmonary Medical History: Reports: Chronic Obstructive Pulmonary Disease (COPD) Denies: Asthma, Bronchitis, Pneumonia, Tuberculosis Neurological Medical History: Reports: Ischemic CVA Denies: Seizures GI Medical History: Reports: Gastroesophageal Reflux Disease Musculoskeltal Medical History: Reports: Arthritis Psychiatric Medical History: Reports: Depression Past Surgical History Past Surgical History: Reports: Appendectomy Social History Smoking Status: Current Every Day Smoker Frequency of Alcohol Use: None Hx Recreational Drug Use: No Drugs: None Hx Prescription Drug Abuse: No Family History Family History: Reviewed & Not Pertinent, DM Parental Family History Reviewed: Yes Children Family History Reviewed: Yes Sibling(s) Family History Reviewed.: Yes Medication/Allergy Home Medications: Albuterol Sulfate [Proair HFA Inhalation Aerosol 8.5 gm MDI] 2 puff IH QIDP PRN 02/01/19 Diazepam [Valium 5 mg Tablet] 5 mg PO HSP PRN 02/01/19 Gabapentin Enacarbil [Horizant] 600 mg PO DAILY 02/01/19 Hydroxyzine HCl [Atarax 25 mg Tablet] 1 tab PO HSP PRN 02/01/19 Ipratropium/Albuterol Sulfate [Duoneb 3 ml Ampul] 3 ml NEB RTQIDP PRN 02/01/19 Oxycodone HCl/Acetaminophen [Percocet 10-325 mg Tablet] 1 each PO QIDP PRN 02/01/19 Aspirin/Dipyridamole [Aggrenox 25 mg/200 mg Capsule SA] 1 cap.sr PO Q12 #180 cpmp.12hr 02/06/19 Atorvastatin Calcium [Lipitor 80 mg Tablet] 80 mg PO QHS #90 tablet 02/06/19 Allergies/Adverse Reactions: No Known Allergies Allergy (Verified 03/20/19 16:13) Review of Systems Constitutional: PRESENT: weakness. ABSENT: chills, fever(s), headache(s), weight gain, weight loss Eyes: ABSENT: visual disturbances Ears: ABSENT: hearing changes Cardiovascular: ABSENT: chest pain, dyspnea on exertion, edema, orthropnea, palpitations Respiratory: ABSENT: cough, hemoptysis Gastrointestinal: ABSENT: abdominal pain, constipation, diarrhea, hematemesis, hematochezia, nausea, vomiting Genitourinary: ABSENT: dysuria, hematuria Musculoskeletal: ABSENT: joint swelling Integumentary: ABSENT: rash, wounds Neurological: PRESENT: lack of coordination, numbness, paresthesias, tingling. ABSENT: abnormal gait, abnormal speech, confusion, dizziness, focal weakness, syncope Psychiatric: ABSENT: anxiety, depression, homidical ideation, suicidal ideation Endocrine: ABSENT: cold intolerance, heat intolerance, menstrual abnormalities, polydipsia, polyuria Hematologic/Lymphatic: ABSENT: easy bleeding, easy bruising, lymphadenopathy Physical Exam Vital Signs: Temp Pulse Resp BP Pulse Ox 98.1 F 68 22 H 192/74 H 98 03/20/19 16:18 03/20/19 16:18 03/20/19 16:18 03/20/19 16:21 03/20/19 16:18 Intake & Output 03/19/19 03/20/19 03/21/19 06:59 06:59 06:59 Weight 55.9 kg General appearance: PRESENT: no acute distress, well-developed, well-nourished Head exam: PRESENT: atraumatic, normocephalic Eye exam: PRESENT: conjunctiva pink, EOMI, PERRLA. ABSENT: scleral icterus Ear exam: PRESENT: normal external ear exam Mouth exam: PRESENT: moist, tongue midline Neck exam: PRESENT: full ROM. ABSENT: carotid bruit, JVD, lymphadenopathy, thyromegaly Respiratory exam: PRESENT: clear to auscultation tatianna Cardiovascular exam: PRESENT: RRR. ABSENT: diastolic murmur, rubs, systolic murmur Pulses: PRESENT: normal dorsalis pedis pul, +2 pedal pulses bilateral Vascular exam: PRESENT: normal capillary refill GI/Abdominal exam: PRESENT: normal bowel sounds, soft. ABSENT: distended, guarding, mass, organolmegaly, rebound, tenderness Rectal exam: PRESENT: deferred Neurological exam: PRESENT: alert, awake, oriented to person, oriented to place, oriented to time, oriented to situation, CN II-XII grossly intact. ABSENT: motor sensory deficit Additional comments: Mild weakness in the right upper extremities other than that all the other extremities normal strength Psychiatric exam: PRESENT: appropriate affect, normal mood. ABSENT: homicidal ideation, suicidal ideation Skin exam: PRESENT: dry, intact, warm. ABSENT: cyanosis, rash Results Laboratory Results: 03/20/19 16:44 03/20/19 16:44 03/20/19 03/20/19 16:44 16:44 WBC 6.9 RBC 4.63 Hgb 13.8 Hct 40.6 MCV 88 MCH 29.8 MCHC 34.0 RDW 14.8 H Plt Count 197 Seg Neutrophils % 45.4 Sodium 139.9 Potassium 4.2 Chloride 108 H Carbon Dioxide 26 Anion Gap 6 BUN 15 Creatinine 1.23 Est GFR ( Amer) > 60 Glucose 100 Calcium 9.1 Total Bilirubin 0.4 AST 22 Alkaline Phosphatase 73 Total Protein 6.4 Albumin 3.7 03/20/19 16:44 Troponin I < 0.012 Impressions: Chest X-Ray 03/20/19 16:33 IMPRESSION: COPD with mild perihilar infiltrates/edema. Head CT 03/20/19 16:33 IMPRESSION: NORMAL BRAIN CT WITHOUT CONTRAST. EVIDENCE OF ACUTE STROKE: NO. Assessment & Plan - Diagnosis (1) Acute CVA (cerebrovascular accident) Is this a current diagnosis for this admission?: Yes Plan: We will get the MRI and MRA of the head Patients have slurred speech with right-sided weakness out of the TPA window Possible may be a TIA while the patient's symptoms pretty much all resolving Will continues to Aggrenox high-dose statin Discussed with the patient about smoking counseling Continues Lovenox (2) Hypertensive emergency, no CHF Is this a current diagnosis for this admission?: Yes Plan: With the symptoms of the stroke will keep a Cardene drip to better control the blood patient's keep her systolic blood pressures more than 180 (3) COPD (chronic obstructive pulmonary disease) Qualifiers: COPD type: chronic bronchitis Is this a current diagnosis for this admission?: Yes Plan: Use PRN nebulizer (4) Smoker Is this a current diagnosis for this admission?: Yes Plan: discuss with the patient about smoking counseling - Time Time Spent: 50 to 70 Minutes Medications reviewed and adjusted accordingly: Yes Anticipated discharge: Home Within: Other - Inpatient Certification Based on my medical assessment, after consideration of the patient's comorbidities, presenting symptoms, or acuity I expect that the services needed warrant INPATIENT care.: Yes I certify that my determination is in accordance with my understanding of Medicare's requirements for reasonable and necessary INPATIENT services [42 CFR 412.3e].: Yes Medical Necessity: Need Close Monitoring Due to Risk of Patient Decompensation, Need For Continuous Telemetry Monitoring, Need for Neurological Checks Post Hospital Care: D/C Nurse Leader Documentation - Plan Summary Plan Summary: Admit the patient's in a monitored bed Continues stroke protocol Will get the echo reports and a previous carotid Doppler reports before reorder it
--- NOTE | 2019-03-20 19:32 | RADIOLOGY REPORT (SQ) ---
EXAM DESCRIPTION: MRI HEAD WITHOUT COMPLETED DATE/TIME: 03/20/2019 7:21 pm REASON FOR STUDY: right sided weakness, dysarthria COMPARISON: None. TECHNIQUE: Multiplanar imaging includes non-contrasted T1, T2, FLAIR, and diffusion with ADC map seq uences. Images stored on PACS. LIMITATIONS: None. FINDINGS: ANATOMY: No anomalies. Normal vascular flow voids. Pituitary fossa normal. CSF SPACES: Normal in size and contour. No hemorrhage. CEREBRUM: Sulci and gyri normal in size and contour. Normal white matter signal on FLAIR imaging. No evidence of hemorrhage, mass, or extraaxial fluid collection. POSTERIOR FOSSA: No signal alteration. No hemorrhage. No edema, masses or mass effect. Internal warren tory canals, cerebello-pontine angles, mastoids normal. DIFFUSION IMAGING: Negative for acute or sub-acute infarction. ORBITS: No masses. Globes normal. PARANASAL SINUSES: No fluid levels. Mucosa normal. OTHER: No other significant finding. IMPRESSION: NORMAL MRI OF THE BRAIN WITHOUT INTRAVENOUS GADOLINIUM CONTRAST. EVIDENCE OF ACUTE STROKE: NO. TECHNICAL DOCUMENTATION: JOB ID: [id number]- All Rights Reserved Reading location - IP/workstation name: [email or web address]
--- NOTE | 2019-03-20 19:43 | RADIOLOGY REPORT (SQ) ---
EXAM DESCRIPTION: MRA HEAD WITHOUT COMPLETED DATE/TIME: 03/20/2019 7:21 pm REASON FOR STUDY: right sided weakness and dysarthria COMPARISON: None. TECHNIQUE: Axial 3-D [id number] acquisition imaging performed through the brain in the area of t he [place]. Images reformatted using 3-D MIPS. LIMITATIONS: None. FINDINGS: SOURCE IMAGES: No unexpected findings on source images. No large masses. 3-D MIP: No aneurysm. No occlusions. No significant stenosis. OTHER: No other significant finding. IMPRESSION: NORMAL MRA OF THE [place]. TECHNICAL DOCUMENTATION: JOB ID: [id number] [employer]- All Rights Reserved Reading location - IP/workstation name: [email or web address]
[2019-03-20] MEDS: IPRATROPIUM/ALBUTEROL 0.5-2.5 MG/3 ML AMPUL NEB PRN (21:34)
[2019-03-20] MEDS ORDERED: ATORVASTATIN CALCIUM 80 MG TABLET PO SCH (22:00)
[2019-03-20] MEDS: CEFUROXIME 500 MG TABLET PO SCH (22:10)
[2019-03-20] MEDS: FAMOTIDINE INJ/PF 20 MG/2 ML SDV IV SCH (22:10)
[2019-03-20] MEDS: ASPIRIN/DIPYRIDAMOLE 25-200 MG 1 CAP.SR CPMP.12HR PO SCH (22:10)
[2019-03-20 22:15] LABS: CREATINE KINASE MB 2.02 ng/mL (<4.55)
[2019-03-20 22:25] LABS: TROPONIN I < 0.012 ng/mL
[2019-03-21 04:24] LABS: ABSOLUTE BASOPHILS # (AUTO) 0.1 10^3/uL (0.0-0.2); ABSOLUTE EOSINOPHILS # (AUTO) 0.5 10^3/uL (0.0-0.6); ABSOLUTE LYMPHOCYTES (AUTO) 2.3 10^3/uL (0.5-4.7); ABSOLUTE MONOCYTES (AUTO) 0.6 10^3/uL (0.1-1.4); ABSOLUTE NEUT (AUTO) 7.5 10^3/uL (1.7-8.2); BASOPHILS % (AUTO) 0.7 % (0-2); EOSINOPHILS % (AUTO) 4.7 % (0-6); HEMATOCRIT 40.1 % (37.9-51.0); HEMOGLOBIN 13.9 g/dL (13.5-17.0); LYMPHOCYTES % (AUTO) 20.7 % (13-45); MEAN CORPUSCULAR HEMOGLOBIN 30.1 pg (27.0-33.4); MEAN CORPUSCULAR HGB CONC 34.5 g/dL (32.0-36.0); MEAN CORPUSCULAR VOLUME 87 fl (80-97); MONOCYTES % (AUTO) 5.6 % (3-13); PLATELET COUNT 221 10^3/uL (150-450); RED BLOOD COUNT 4.61 10^6/uL (4.35-5.55); RED CELL DISTRIBUTION WIDTH 15.2 % (11.5-14.0); SEGMENTED NEUTROPHILS % (AUTO) 68.3 % (42-78); TOTAL CELLS COUNTED % (AUTO) 100 %
[2019-03-21 04:37] LABS: ALBUMIN 3.7 g/dL (3.5-5.0); ALKALINE PHOSPHATASE 79 U/L (38-126); ANION GAP 8 (5-19); ASPARTATE AMINO TRANSFERASE 21 U/L (17-59); BILIRUBIN,DIRECT 0.3 mg/dL (0.0-0.4); BILIRUBIN,TOTAL 0.4 mg/dL (0.2-1.3); BLOOD UREA NITROGEN 20 mg/dL (7-20); CALCIUM 9.4 mg/dL (8.4-10.2); CARBON DIOXIDE 23 mmol/L (22-30); CHLORIDE 108 mmol/L (98-107); CREATINE KINASE 160 U/L (55-170); GLUCOSE 104 mg/dL (75-110); POTASSIUM 4.2 mmol/L (3.6-5.0); TOTAL PROTEIN 6.5 g/dL (6.3-8.2)
[2019-03-21 04:49] LABS: CREATINE KINASE MB 1.99 ng/mL (<4.55)
[2019-03-21 04:55] LABS: TROPONIN I < 0.012 ng/mL
[2019-03-21] MEDS: IPRATROPIUM/ALBUTEROL 0.5-2.5 MG/3 ML AMPUL NEB PRN ×3 (05:43→21:55)
[2019-03-21] MEDS: ASPIRIN/DIPYRIDAMOLE 25-200 MG 1 CAP.SR CPMP.12HR PO SCH (10:04)
[2019-03-21] MEDS: CEFUROXIME 500 MG TABLET PO SCH ×2 (10:04→21:23)
[2019-03-21] MEDS: ENOXAPARIN SODIUM INJ 40 MG/0.4 ML DISP.SYRIN SUBCUT SCH (10:05)
[2019-03-21] MEDS: FAMOTIDINE INJ/PF 20 MG/2 ML SDV IV SCH (10:06)
[2019-03-21 10:49] LABS: CREATINE KINASE MB 1.91 ng/mL (<4.55)
[2019-03-21 10:54] LABS: TROPONIN I < 0.012 ng/mL
[2019-03-21] MEDS ORDERED: (PENDING PHARMACY ID) (Oxycodone Hcl/Acetaminophen [Percocet 10-325 Mg Tablet] 1 EACH) PO PRN (19:04)
[2019-03-21] MEDS ORDERED: DIAZEPAM 5 MG TABLET PO PRN (19:04)
[2019-03-21] MEDS ORDERED: (PENDING PHARMACY ID) (Hydroxyzine Hcl [Atarax 25 Mg Tablet] 25 MG) PO PRN (19:04)
[2019-03-21] MEDS ORDERED: HYDROXYZINE HCL 10 MG TABLET PO PRN (19:15)
[2019-03-21] MEDS ORDERED: (PENDING PHARMACY ID) (Gabapentin Enacarbil [Horizant] 600 MG) PO SCH (19:15)
[2019-03-21] MEDS ORDERED: OXYCODONE-ACETAMINOPHEN 5-325 MG TABLET PO PRN (19:17)
[2019-03-21] MEDS ORDERED: OXYCODONE HCL IR 5 MG TABLET PO PRN (19:18)
[2019-03-21] MEDS: AMLODIPINE BESYLATE 10 MG TABLET PO SCH (20:32)
[2019-03-21] MEDS: LOSARTAN POTASSIUM 50 MG TABLET PO SCH (20:33)
[2019-03-21] MEDS: FAMOTIDINE 20 MG TABLET PO SCH (21:23)
--- NOTE | 2019-03-21 21:53 | PDOC PROGRESS REPORT ---
Subjective Progress Note for:: 03/21/19 Subjective:: Patient seen by the bedside patient was admitted for evaluation of stroke symptoms. He has a history of stroke, MRI brain negative for acute stroke, patient was bent on going home today after extensive persuation he decided to stay another day. The blood pressure is not well controlled, presently in ICU on nicardipine infusion Reason For Visit: ACUTE CVA Physical Exam Vital Signs: Temp Pulse Resp BP Pulse Ox 98.2 F 83 21 H 177/94 H 96 03/21/19 07:00 03/21/19 17:00 03/21/19 18:09 03/21/19 18:09 03/21/19 18:09 Intake & Output 03/20/19 03/21/19 03/22/19 06:59 06:59 06:59 Intake Total 1041 1750 Output Total 875 500 Balance 166 1250 Weight 55.1 kg General appearance: PRESENT: no acute distress Eye exam: PRESENT: PERRLA Respiratory exam: PRESENT: clear to auscultation tatianna Cardiovascular exam: PRESENT: +S1, +S2 GI/Abdominal exam: PRESENT: soft Neurological exam: PRESENT: alert, CN II-XII grossly intact Results Laboratory Results: 03/21/19 03:53 03/21/19 03:53 03/21/19 03/21/19 03:53 03:53 WBC 11.0 H RBC 4.61 Hgb 13.9 Hct 40.1 MCV 87 MCH 30.1 MCHC 34.5 RDW 15.2 H Plt Count 221 Seg Neutrophils % 68.3 Sodium 139.2 Potassium 4.2 Chloride 108 H Carbon Dioxide 23 Anion Gap 8 BUN 20 Creatinine 1.39 H Est GFR ( Amer) > 60 Glucose 104 Calcium 9.4 Total Bilirubin 0.4 AST 21 Alkaline Phosphatase 79 Total Protein 6.5 Albumin 3.7 03/20/19 03/20/19 03/20/19 16:44 16:44 21:35 Creatine Kinase 191 H CK-MB (CK-2) 2.02 Troponin I < 0.012 < 0.012 03/21/19 03/21/19 03/21/19 03:53 03:53 09:45 Creatine Kinase 160 132 CK-MB (CK-2) 1.99 Troponin I < 0.012 03/21/19 09:45 Creatine Kinase CK-MB (CK-2) 1.91 Troponin I < 0.012 Impressions: Chest X-Ray 03/20/19 16:33 IMPRESSION: COPD with mild perihilar infiltrates/edema. Head CT 03/20/19 16:33 IMPRESSION: NORMAL BRAIN CT WITHOUT CONTRAST. EVIDENCE OF ACUTE STROKE: NO. Brain MRI with MRA 03/20/19 17:54 IMPRESSION: NORMAL MRA OF THE [place]. Head MRI 03/20/19 17:54 IMPRESSION: NORMAL MRI OF THE BRAIN WITHOUT INTRAVENOUS GADOLINIUM CONTRAST. EVIDENCE OF ACUTE STROKE: NO. Assessment & Plan - Diagnosis (1) Transient ischemic attack (TIA) Is this a current diagnosis for this admission?: Yes Plan: This is most likely TIA, the symptoms he manifested has resolved. He has a history of CVA with residual right-sided hemiparesis (2) Hemiplegia affecting right dominant side Qualifiers: Hemiplegia type: unspecified type Hemiplegia etiology: late effect of cerebrovascular disease Cerebrovascular disease type: unspecified Qualified Code(s): I69.951 - Hemiplegia and hemiparesis following unspecified cerebrovascular disease affecting right dominant side Is this a current diagnosis for this admission?: Yes (3) Essential (primary) hypertension Is this a current diagnosis for this admission?: Yes Plan: The blood pressure is not optimally controlled, the medication adjusted, he does not have acute CVA, it is not necessary to allow permissive hypertension, the blood pressure could be controlled to achieve the target blood pressure readings. (4) COPD (chronic obstructive pulmonary disease) with acute bronchitis Is this a current diagnosis for this admission?: Yes Plan: Patient continued to smoke despite COPD, he has bronchitis
[2019-03-21] MEDS ORDERED: ASPIRIN/DIPYRIDAMOLE 25-200 MG 1 CAP.SR CPMP.12HR PO SCH (22:00)
[2019-03-21] MEDS ORDERED: ATORVASTATIN CALCIUM 80 MG TABLET PO SCH (22:00)
--- NOTE | 2019-03-21 23:09 | EKG REPORT ---
SEVERITY:- NORMAL ECG - SINUS RHYTHM : Confirmed by: Laura Chandler 21-Mar-2019 23:09:19
--- NOTE | 2019-03-22 08:10 | PDOC DISCHARGE SUMMARY ---
General - Admit/Disc Date/PCP Admission Date/Primary Care Provider: 03/20/19 18:20 LARY LOOMIS MD Discharge Date: 03/22/19 - Additional Information Prescriptions: Losartan Potassium [Cozaar 50 mg Tablet] 100 mg PO DAILY #90 tablet Amlodipine Besylate [Norvasc 10 mg Tablet] 10 mg PO DAILY #90 tablet Home Medications: Diazepam [Valium 5 mg Tablet] 5 mg PO HSP PRN 02/01/19 Gabapentin Enacarbil [Horizant] 600 mg PO DAILY 02/01/19 Oxycodone HCl/Acetaminophen [Percocet 10-325 mg Tablet] 1 each PO Q6HP PRN 02/01/19 Aspirin/Dipyridamole [Aggrenox 25 mg/200 mg Capsule SA] 1 cap.sr PO Q12 #180 cpmp.12hr 02/06/19 Atorvastatin Calcium [Lipitor 80 mg Tablet] 80 mg PO QHS #90 tablet 02/06/19 Amlodipine Besylate [Norvasc 10 mg Tablet] 10 mg PO DAILY #90 tablet 03/22/19 Losartan Potassium [Cozaar 50 mg Tablet] 100 mg PO DAILY #90 tablet 03/22/19 History of Present Illness History of Present Illness: HUSSEIN LEON is a 68 year old male,He was admitted when he presented with strokelike symptoms Hospital Course Hospital Course: Patient was admitted for the management of transient weakness of the right side of his body,, slurred speech, he has history of CVA, the blood pressure was also elevated. He was not a candidate for thrombolytic he was managed for CVA, the hypertension was permissive. Patient stayed for 3 days in the hospital, he insisted he was to be discharged home today, I thought he is still needed to be observed for few more hours or days. He was managed according to stroke prot ocol Physical Exam Vital Signs: Temp Pulse Resp BP Pulse Ox 96.9 F L 84 20 115/62 92 03/22/19 07:23 03/22/19 07:23 03/22/19 07:23 03/22/19 07:23 03/22/19 04:00 Intake & Output 03/21/19 03/22/19 03/23/19 06:59 06:59 06:59 Intake Total 1041 2250 Output Total 875 700 Balance 166 1550 Weight 55.1 kg General appearance: PRESENT: no acute distress Head exam: PRESENT: atraumatic, normocephalic Eye exam: PRESENT: PERRLA Ear exam: PRESENT: normal external ear exam Mouth exam: PRESENT: moist, tongue midline Neck exam: PRESENT: full ROM Respiratory exam: PRESENT: clear to auscultation tatianna Cardiovascular exam: PRESENT: RRR, +S1, +S2 Pulses: PRESENT: normal dorsalis pedis pul, +2 pedal pulses bilateral Vascular exam: PRESENT: normal capillary refill GI/Abdominal exam: PRESENT: normal bowel sounds, soft Rectal exam: PRESENT: deferred Neurological exam: PRESENT: alert, motor sensory deficit Psychiatric exam: PRESENT: appropriate affect, normal mood Skin exam: PRESENT: dry, intact, warm Results Laboratory Results: 03/21/19 03:53 03/21/19 03:53 03/20/19 03/20/19 03/20/19 16:44 16:44 21:35 Creatine Kinase 191 H CK-MB (CK-2) 2.02 Troponin I < 0.012 < 0.012 03/21/19 03/21/19 03/21/19 03:53 03:53 09:45 Creatine Kinase 160 132 CK-MB (CK-2) 1.99 Troponin I < 0.012 03/21/19 09:45 Creatine Kinase CK-MB (CK-2) 1.91 Troponin I < 0.012 Impressions: Chest X-Ray 03/20/19 16:33 IMPRESSION: COPD with mild perihilar infiltrates/edema. Head CT 03/20/19 16:33 IMPRESSION: NORMAL BRAIN CT WITHOUT CONTRAST. EVIDENCE OF ACUTE STROKE: NO. Brain MRI with MRA 03/20/19 17:54 IMPRESSION: NORMAL MRA OF THE [place]. Head MRI 03/20/19 17:54 IMPRESSION: NORMAL MRI OF THE BRAIN WITHOUT INTRAVENOUS GADOLINIUM CONTRAST. EVIDENCE OF ACUTE STROKE: NO. Qualifiers - * PATIENT BEING DISCHARGED WITH ANY OF THE FOLLOWING DIAGNOSIS: Stroke VTE patient discharged on overlapping Therapy?: Yes Stroke Pt being discharged on Anti-thrombolytic therapy?: Yes Stroke Pt being discharged on Anti-coagulation therapy?: Yes Stroke Pt being discharged on Statins?: Yes OR Pt being discharged on Aspirin therapy?: No Reason(s) for not prescribing Aspirin therapy:: Not indicated OR Pt being discharged on Statins?: No Reason(s) for not prescribing Statin therapy:: Not indicated OR Pt discharged ACEI/ARBS?: No Reason(s) for not prescribing ACEI/ARBS:: Not indicated Acute Heart Failure - Is this a Heart Failure Patient?: No Follow-up Appointment scheduled within 7 days?: Yes
[2019-03-22] MEDS: IPRATROPIUM/ALBUTEROL 0.5-2.5 MG/3 ML AMPUL NEB PRN (08:52)
[2019-03-22 09:14] VITALS: BP 115/62
[2019-03-22] MEDS: CEFUROXIME 500 MG TABLET PO SCH (09:59)
[2019-03-22] MEDS: AMLODIPINE BESYLATE 10 MG TABLET PO SCH (09:59)
[2019-03-22] MEDS: FAMOTIDINE 20 MG TABLET PO SCH (10:00)
[2019-03-22] MEDS: ENOXAPARIN SODIUM INJ 40 MG/0.4 ML DISP.SYRIN SUBCUT SCH (10:00)
[2019-03-22] MEDS: LOSARTAN POTASSIUM 50 MG TABLET PO SCH (10:00)
== END 2019-03-22 10:04 | disposition home or self-care (01) | DRG 69 ==
LOC: ER 16:12 → EH 18:20 → ICU 19:30
PROVIDERS: ADMIT Internal Medicine; ATTEND Internal Medicine
DX: G45.9 Transient cerebral ischemic attack, unspecified (principal); I69.951 Hemiplegia and hemiparesis following unspecified cerebrovascular disease affecting right dominant side; J44.0 Chronic obstructive pulmonary disease with (acute) lower respiratory infection; I16.1 Hypertensive emergency; I10 Essential (primary) hypertension; J44.9 Chronic obstructive pulmonary disease, unspecified; R47.81 Slurred speech; K21.9 Gastro-esophageal reflux disease without esophagitis; F32.9 Major depressive disorder, single episode, unspecified; F17.210 Nicotine dependence, cigarettes, uncomplicated; J20.9 Acute bronchitis, unspecified; Z79.899 Other long term (current) drug therapy
CPT/HCPCS: 36415; 70450; 70544; 70551; 71046; 80053; 82550; 82553; 84484; 85025; 85610; 85730; 93005; 93010; 96365; 99285; J1650; J3490; J7620; S0028

== ENCOUNTER 2020-05-06 12:29 | Emergency (ER) | payer MEDICARE, MEDICAID ==
[2020-05-06] MEDS ORDERED: ONDANSETRON HCL INJ/PF 4 MG/2 ML SDV IV ONE (14:43)
[2020-05-06] MEDS ORDERED: MORPHINE SULFATE 10 MG/ML INJ IV ONE ×2 (14:43→15:18)
[2020-05-06 15:10] LABS: ABSOLUTE BASOPHILS # (AUTO) 0.1 10^3/uL (0.0-0.2); ABSOLUTE LYMPHOCYTES (AUTO) 1.3 10^3/uL (0.5-4.7); ABSOLUTE MONOCYTES (AUTO) 0.3 10^3/uL (0.1-1.4); ABSOLUTE NEUT (AUTO) 10.5 10^3/uL (1.7-8.2); BASOPHILS % (AUTO) 0.5 % (0-2); EOSINOPHILS % (AUTO) 0.4 % (0-6); HEMATOCRIT 39.6 % (37.9-51.0); HEMOGLOBIN 13.6 g/dL (13.5-17.0); LYMPHOCYTES % (AUTO) 10.4 % (13-45); MEAN CORPUSCULAR HGB CONC 34.5 g/dL (32.0-36.0); MEAN CORPUSCULAR VOLUME 87 fl (80-97); MONOCYTES % (AUTO) 2.5 % (3-13); RED BLOOD COUNT 4.55 10^6/uL (4.35-5.55); RED CELL DISTRIBUTION WIDTH 15.7 % (11.5-14.0); SEGMENTED NEUTROPHILS % (AUTO) 86.2 % (42-78); TOTAL CELLS COUNTED % (AUTO) 100 %; WHITE BLOOD COUNT 12.2 10^3/uL (4.0-10.5)
[2020-05-06] MEDS ORDERED: HEPARIN SOD (PORCINE) 1,000 UNIT/ML 10 ML VIAL IV ONE (15:11)
[2020-05-06 15:41] LABS: INTERNATIONAL RATION (INR) 1.07; PROTHROMBIN TIME 14.1 SEC (11.4-15.4)
[2020-05-06 15:42] LABS: PARTIAL THROMBOPLASTIN TIME 22.7 SEC (23.5-35.8)
[2020-05-06 15:55] LABS: PLATELET COUNT 209 10^3/uL (150-450)
[2020-05-06] MEDS ORDERED: HEPARIN SODIUM,PORCINE/D5W 25,000 UNIT/250 ML RTUINJ IV PRN (15:57)
[2020-05-06 16:05] LABS: ALBUMIN 3.3 g/dL (3.5-5.0); ALKALINE PHOSPHATASE 69 U/L (38-126); ANION GAP 9 (5-19); ASPARTATE AMINO TRANSFERASE 24 U/L (17-59); BILIRUBIN,DIRECT 0.3 mg/dL (0.0-0.4); BILIRUBIN,TOTAL 0.6 mg/dL (0.2-1.3); BLOOD UREA NITROGEN 27 mg/dL (7-20); CALCIUM 8.8 mg/dL (8.4-10.2); CARBON DIOXIDE 23 mmol/L (22-30); CHLORIDE 103 mmol/L (98-107); GLUCOSE 145 mg/dL (75-110); POTASSIUM 5.1 mmol/L (3.6-5.0)
[2020-05-06] MEDS ORDERED: NORMAL SALINE 1000 ML 1,000 ML IV ONE (16:13)
--- NOTE | 2020-05-06 16:20 | ER Document Report ---
ED Extremity Problem, Lower - General Chief Complaint: Leg Pain Stated Complaint: LEG PAIN Time Seen by Provider: 05/06/20 14:04 Primary Care Provider: LARY LOOMIS MD [Primary Care Provider] - Follow up as needed Information source: Patient TRAVEL OUTSIDE OF THE [place] IN LAST 30 DAYS: No - HPI Notes: Patient presents with severe left lower extremity pain. Patient states he was sleeping in the back of the car when he woke up with severe lower extremity pain. Starts in the left lateral hip and radiates all the way down the leg. Is severe and constant. Is worse with movement and better with rest. It is a sharp and throbbing sensation. He denies any belly pain or low back pain. No fevers. No vomiting. - Related Data Allergies/Adverse Reactions: No Known Allergies Allergy (Verified 05/06/20 12:44) Home Medications: combivent. trilogy. losartan/hctz. prednisone Past Medical History - General Information source: Patient - Social History Smoking Status: Former Smoker Chew tobacco use (# tins/day): No Frequency of alcohol use: None Drug Abuse: None Family History: Reviewed & Not Pertinent, DM Patient has homicidal ideation: No - Past Medical History Cardiac Medical History: Reports: Hx Hypertension Denies: Hx Coronary Artery Disease, Hx Heart Attack Pulmonary Medical History: Reports: Hx COPD Denies: Hx Asthma, Hx Bronchitis, Hx Pneumonia, Hx Tuberculosis Neurological Medical History: Reports: Hx Cerebrovascular Accident. Denies: Hx Seizures Renal/ Medical History: Denies: Hx Peritoneal Dialysis GI Medical History: Reports: Hx Gastroesophageal Reflux Disease Musculoskeletal Medical History: Reports Hx Arthritis Psychiatric Medical History: Reports: Hx Depression Past Surgical History: Reports: Hx AppendectomyComment Only: Hx Abdominal Surgery - bilateral inguinal hernia - Immunizations Immunizations up to date: Yes Hx Diphtheria, Pertussis, Tetanus Vaccination: Yes Review of Systems - Review of Systems Constitutional: denies: Chills, Fever Cardiovascular: denies: Chest pain, Palpitations Respiratory: denies: Cough, Short of breath -: Yes All other systems reviewed and negative Physical Exam - Vital signs Vitals: Temp Pulse Resp BP Pulse Ox 98.9 F 67 20 90/71 L 95 05/06/20 12:43 05/06/20 12:43 05/06/20 12:43 05/06/20 12:43 05/06/20 12:43 Interpretation: Hypotensive - General General appearance: Alert, Anxious - HEENT Head: Normocephalic, Atraumatic Eyes: Normal Pupils: PERRL - Respiratory Respiratory status: No respiratory distress Chest status: Nontender Breath sounds: Normal Chest palpation: Normal - Cardiovascular Rhythm: Regular Heart sounds: Normal auscultation Murmur: No - Abdominal Inspection: Normal Distension: No distension Bowel sounds: Normal Tenderness: Nontender Organomegaly: No organomegaly - Back Back: Normal, Nontender - Extremities General upper extremity: Normal inspection, Nontender, Normal color, Normal ROM, Normal temperature General lower extremity: Other - Left lower extremity is pale mainly below the knee. I cannot palpate or Doppler dorsalis pedis on the left. He has decreased capillary refill on the left. He has severe pain to any significant palpation of the left lower extremity. The left foot and ankle are also cool compared to the right. - Neurological Cognition: Normal Orientation: AAOx4 [place] Coma Scale Eye Opening: Spontaneous Pat Coma Scale Verbal: Oriented Pat Coma Scale Motor: Obeys Commands Pat Coma Scale Total: 15 Speech: Normal Motor strength normal: LUE, RUE, RLE - Psychological Associated symptoms: Agitated, Anxious - Skin Skin Temperature: Warm Skin Moisture: Dry Skin Color: Normal Course - Re-evaluation Re-evalutation: 05/06/20 16:18 Patient presented with severe left lower extremity pain. There is obvious on initial exam the patient most likely had an ischemic lower extremity given the patient's history of being a smoker, body habitus as well as his history of tell me that he has had recent calf pain with any type of walking. I immediately obtained a Doppler ultrasound to evaluate arterial flow and was informed that he has significant decrease of arterial flow to left lower extremity that was described as "trickle flow" by both the radiologist and the certified surgical technologist. I then arrange for the patient be transferred by emergency helicopter transportation for attempted revascularization by treating of occulsion of the left lower extremity. I started heparin and aspirin. - Vital Signs Vital signs: Temp Pulse Resp BP Pulse Ox 98.9 F 67 20 90/71 L 95 05/06/20 12:44 05/06/20 12:43 05/06/20 12:43 05/06/20 12:43 05/06/20 12:43 - Laboratory Result Diagrams: 05/06/20 14:58 05/06/20 14:58 Laboratory results interpreted by me: 05/06/20 05/06/20 14:58 14:58 WBC 12.2 H RDW 15.7 H Lymph % (Auto) 10.4 L Hendricks % (Auto) 2.5 L Absolute Neuts (auto) 10.5 H Seg Neutrophils % 86.2 H Sodium 134.7 L Potassium 5.1 H BUN 27 H Creatinine 1.48 H Est GFR ( Amer) 57 L Est GFR (MDRD) Non-Af 47 L Glucose 145 H Total Protein 6.0 L Albumin 3.3 L - Diagnostic Test Radiology reviewed: Image reviewed, Reports reviewed Critical Care Note - Critical Care Note Total time excluding time spent on procedures (mins): 50 Comments: Approximately 50 minutes of critical care time were spent on this patient with acute left lower extremity vascular occlusion causing arterial ischemic changes to the left lower extremity. This time spent talking with beauty consultant. It was spent during multiple reexaminations of the patient. I spent talking with patient and family. I spent reviewing imaging and laboratories Discharge - Discharge Clinical Impression: Arterial occlusion, lower extremity Condition: Critical Disposition: [facility] Referrals: LARY LOOMIS MD [Primary Care Provider] - Follow up as needed
--- NOTE | 2020-05-06 16:23 | RADIOLOGY REPORT (SQ) ---
EXAM DESCRIPTION: ARTERIAL LOWER EXTREM UNILAT IMAGES COMPLETED DATE/TIME: 05/06/2020 4:00 pm REASON FOR STUDY: cool/leg pain left COMPARISON: None. TECHNIQUE: Dynamic and static sims scale and color images acquired of the lower extremity arteries. Additional selected spectral images recorded. ABIs recorded. LIMITATIONS: None. FINDINGS: RIGHT LEG: ABIS: Not performed INFLOW ARTERIES: Triphasic inflow. FEMORAL ARTERIES:Common femoral artery is patent with triphasic waveforms. PATENT TIBIOPERONEAL TRUNK AND 3 VESSEL RUNOFF: Biphasic dorsalis pedis. TBI: Not performed. OTHER: No other significant finding. LEFT LEG: ABIS: Not performed. INFLOW ARTERIES: Dampened monophasic waveform with low flow. FEMORAL ARTERIES:Common femoral artery demonstrates diminished monophasic waveform. Profunda origin is patent with dampened monophasic waveform.. SFA demonstrates no flow within the proximal or mid asp ect with diminutive trickle distal reconstitution. Grayscale demonstrates hypoechoic echogenic intra luminal material. POPLITEAL ARTERY:Markedly diminished trickle flow with continuous waveform.. No aneurysm. PATENT TIBIOPERONEAL TRUNK AND 3 VESSEL RUNOFF: Anterior tibial is occluded without appreciable flow. Posterior tibial demonstrates markedly diminished trickle flow. Dorsalis pedis is nonvisualized. TBI: Not performed. OTHER: No other significant finding. IMPRESSION: 1. Left lower extremity demonstrates markedly dampened monophasic inflow. SFA is occlu ded at the proximal and mid aspect with reconstitution distally with trickle flow. Comparison with c ontralateral extremity demonstrates triphasic inflow and biphasic distal runoff. 2. Markedly diminished trickle flow within the left popliteal and posterior tibial. Anterior tibial and dorsalis pedis are occluded. Findings discussed with Dr. Toledo At 1611 hours on 05/06/2020. COMMENT: [facility] NORMAL: Greater than 1.0 MINIMAL DISEASE: 0.9 to 1.0 CLAUDICATION: 0.5 to 0.9 SEVERE ARTERIAL DISEASE: Less than 0.5 [facility] NORMAL: Greater than 1.0 (1.2 If Heavy Calcifications) NORMAL TO MILD ISCHEMIA: 0.8 to 1.0 MODERATE ISCHEMIA: 0.4 to 0.8 SEVERE ISCHEMIA: Less than 0.4 TECHNICAL DOCUMENTATION: JOB ID: [id number] 2010 [employer]- All Rights Reserved Reading location - IP/workstation name: [facility]
[2020-05-06 16:52] VITALS: BP 122/64
--- NOTE | 2020-05-06 18:50 | EKG REPORT ---
SEVERITY:- BORDERLINE ECG - SINUS RHYTHM PROBABLE LEFT ATRIAL ABNORMALITY : Confirmed by: Bismark Lyon MD 06-May-2020 18:50:05
== END 2020-05-06 16:48 | disposition short-term general hospital (02) ==
LOC: ER 12:29
DX: I70.202 Unspecified atherosclerosis of native arteries of extremities, left leg (principal); M79.605 Pain in left leg; M25.552 Pain in left hip; Z87.891 Personal history of nicotine dependence; I10 Essential (primary) hypertension; J44.9 Chronic obstructive pulmonary disease, unspecified
CPT/HCPCS: 93005; 96376; 99291; 96375; 96365; 36415; 85025; 85610; 85730; 80053; 93926; 93010; J1644 ×2; J2270; J2405; J7030